=== PATIENT | male | born 1930 | race Caucasian/White ===

== ENCOUNTER 2016-09-07 13:27 | Outpatient (CLI) | payer MEDICARE, OTHER | END 2016-09-07 23:59 | DX: I50.9 Heart failure, unspecified (principal) ==

== ENCOUNTER 2016-10-13 08:00 | Outpatient (CLI) | payer MEDICARE, OTHER | END 2016-10-13 23:59 | DX: I50.9 Heart failure, unspecified (principal) ==

== ENCOUNTER 2016-11-22 11:12 | Outpatient (CLI) | payer MEDICARE, OTHER | END 2016-11-22 11:13 | DX: Z01.810 Encounter for preprocedural cardiovascular examination (principal) ==

== ENCOUNTER → 2017-01-12 | Outpatient (CLI) | payer MEDICARE, OTHER ==
[2017-01-12 12:55] LABS: BASOPHILS % (AUTO) 0.4 %; EOSINOPHILS # (AUTO) 0.1 10^3/uL (0.0-0.7); EOSINOPHILS % (AUTO) 3.2 %; HCT - HEMATOCRIT 37.4 % (42.0-52.0); HGB - HEMOGLOBIN 12.8 g/dL (14.0-18.0); LYMPHOCYTES # (AUTO) 0.5 10^3/uL (1.5-3.5); LYMPHOCYTES % (AUTO) 14.5 %; MEAN CORPUSCULAR HEMOGLOBIN 33.4 pg (27.0-31.0); MEAN CORPUSCULAR HGB CONC 34.2 g/dL (32.0-36.0); MEAN CORPUSCULAR VOLUME 97.7 fL (80.0-94.0); MEAN PLATELET VOLUME 8.3 fL (7.4-11.4); MONOCYTES # (AUTO) 0.4 10^3/uL (0.0-1.0); MONOCYTES % (AUTO) 11.8 %; NEUTROPHILS # (AUTO) 2.5 10^3/uL (1.5-6.6); NEUTROPHILS % (AUTO) 70.1 %; NUCLEATED RED BLOOD CELLS AUTO 0.2 /100WBC; RED BLOOD COUNT 3.83 10^6/uL (4.70-6.10); RED CELL DISTRIBUTION WIDTH 13.7 % (12.0-15.0); UNCORRECTED WHITE BLOOD COUNT 3.6 x10^3/uL; WHITE BLOOD COUNT 3.6 x10^3/uL (4.8-10.8)
[2017-01-12 13:19] LABS: ALBUMIN/GLOBULIN RATIO 1.3 (1.0-2.2); BUN - BLOOD UREA NITROGEN 24 mg/dL (6-20); CALCIUM 8.8 mg/dL (8.5-10.3); CARBON DIOXIDE - CO2 29 mmol/L (21-32); CHLORIDE 107 mmol/L (101-111); CHOLESTEROL 162 mg/dL; CREATININE 0.9 mg/dL (0.6-1.2); GFR - MDRD 80 (>89); GLUCOSE 105 mg/dL (70-100); HDL CHOLESTEROL 54 mg/dL; POTASSIUM 4.3 mmol/L (3.5-5.0); SODIUM 142 mmol/L (135-145); TOTAL PROTEIN 6.5 g/dL (6.7-8.2); TRIGLYCERIDES 38 mg/dL
[2017-01-12 13:37] LABS: LDL CHOLESTEROL,DIRECT 99 mg/dL
== END ==
LOC: LAB.WCP 08:00
PROVIDERS: ATTEND Family Medicine
DX: I50.9 Heart failure, unspecified (principal)
CPT/HCPCS: 36415; 80053; 80061; 83880; 85025

== ENCOUNTER 2017-02-06 08:00 | Outpatient (CLI) | payer MEDICARE, OTHER ==
[2017-02-06 19:36] LABS: BASOPHILS % (AUTO) 0.4 %; EOSINOPHILS # (AUTO) 0.1 10^3/uL (0.0-0.7); EOSINOPHILS % (AUTO) 1.6 %; HCT - HEMATOCRIT 42.5 % (42.0-52.0); HGB - HEMOGLOBIN 14.1 g/dL (14.0-18.0); LYMPHOCYTES # (AUTO) 0.6 10^3/uL (1.5-3.5); LYMPHOCYTES % (AUTO) 11.8 %; MEAN CORPUSCULAR HEMOGLOBIN 33.1 pg (27.0-31.0); MEAN CORPUSCULAR HGB CONC 33.1 g/dL (32.0-36.0); MEAN CORPUSCULAR VOLUME 100.1 fL (80.0-94.0); MEAN PLATELET VOLUME 8.8 fL (7.4-11.4); MONOCYTES # (AUTO) 0.5 10^3/uL (0.0-1.0); MONOCYTES % (AUTO) 10.7 %; NEUTROPHILS # (AUTO) 3.5 10^3/uL (1.5-6.6); NEUTROPHILS % (AUTO) 75.5 %; NUCLEATED RED BLOOD CELLS AUTO 0.5 /100WBC; RED BLOOD COUNT 4.25 10^6/uL (4.70-6.10); RED CELL DISTRIBUTION WIDTH 13.5 % (12.0-15.0); UNCORRECTED WHITE BLOOD COUNT 4.7 x10^3/uL; WHITE BLOOD COUNT 4.7 x10^3/uL (4.8-10.8)
[2017-02-06 20:00] LABS: ALBUMIN/GLOBULIN RATIO 1.3 (1.0-2.2); BILIRUBIN,TOTAL 1.5 mg/dL (0.2-1.0); CALCIUM 8.9 mg/dL (8.5-10.3); POTASSIUM 4.4 mmol/L (3.5-5.0); TOTAL PROTEIN 6.5 g/dL (6.7-8.2)
== END 2017-02-06 08:01 | disposition home or self-care (01) ==
LOC: LAB.WCP 08:00
PROVIDERS: ATTEND Family Medicine
DX: R10.9 Unspecified abdominal pain (principal)
CPT/HCPCS: 36415; 80053; 85025

== ENCOUNTER 2017-02-14 11:14 | Outpatient (CLI) | payer MEDICARE, OTHER ==
[2017-02-14] MEDS ORDERED: IOPAMIDOL-300 100 ML VIAL IVP ONE (13:29)
--- NOTE | 2017-02-14 14:15 | CT Report ---
CT OF THE ABDOMEN AND PELVIS WITH CONTRAST: 02/14/2017 CLINICAL INDICATION: Abdominal pain. TECHNIQUE: Axial CT images of the abdomen and pelvis were obtained with 100 mL of Isovue-300 intraven ously as well as oral contrast. COMPARISON: 04/16/2014. FINDINGS: Limited evaluation of the lung bases demonstrates left greater than right pleural effusion s and basilar infiltrates. ABDOMEN: The liver demonstrates multiple cysts and a small hemangioma in the right lobe. No suspiciou s hepatic lesion is seen. The spleen, pancreas and adrenal glands are unremarkable. The kidneys demon strate cortical cysts. Postoperative changes of cholecystectomy are noted. No bowel dilatation, free gas, or free fluid is present. No abdominal adenopathy is seen. The appendix is seen in the right low er quadrant, and is normal in caliber. PELVIS: Sigmoid diverticulosis is present, without CT evidence of diverticulitis. No pelvic adenopath y or free fluid is present. The osseous structures demonstrate degenerative changes. IMPRESSION: 1. NO EVIDENT ETIOLOGY FOR PATIENT'S ABDOMINAL PAIN. 2. LEFT GREATER THAN RIGHT PLEURAL EFFUSIONS AND ASSOCIATED BASILAR INFILTRATES. In accordance with CT protocol optimization, one or more of the following dose reduction techniques w ere utilized for this exam: automated exposure control, adjustment of mA and/or KV based on patient size, or use of iterative reconstructive technique. JOB #: [id number] EXT JOB #:[id number]
== END 2017-02-14 11:15 | disposition home or self-care (01) ==
LOC: DI 11:14
PROVIDERS: ATTEND Family Medicine
DX: R10.9 Unspecified abdominal pain (principal); R91.8 Other nonspecific abnormal finding of lung field; J90 Pleural effusion, not elsewhere classified
CPT/HCPCS: 36415; 74177; 83880; Q9967

== ENCOUNTER 2017-04-30 11:14 | Outpatient (CLI) | payer MEDICARE, OTHER | END 2017-04-30 11:15 | disposition home or self-care (01) | LOC: SC 11:14 | PROVIDERS: ATTEND Internal Medicine Pulmonary Disease | DX: G47.10 Hypersomnia, unspecified (principal); I50.9 Heart failure, unspecified | CPT/HCPCS: 99203; G0463; 99212 ==

== ENCOUNTER 2017-09-15 09:46 | Outpatient (CLI) | payer MEDICARE, OTHER ==
--- NOTE | 2017-09-15 17:31 | CT Report ---
EXAM: CT CHEST EXAM DATE: 09/15/2017 11:13 AM. CLINICAL HISTORY: PLEURAL EFFUSION, LEFT. COMPARISONS: 02/14/2017. TECHNIQUE: Routine helical CT imaging was performed through the chest. IV contrast: None. Reconstruct ions: Coronal and sagittal. In accordance with CT protocol optimization, one or more of the following dose reduction techniques w ere utilized for this exam: automated exposure control, adjustment of mA and/or KV based on patient s ize, or use of iterative reconstructive technique. FINDINGS: Lungs/Pleura: There is a moderate-sized left pleural effusion. The volume of the left effusion is not appreciable changed as compared to the previous examination. Dependent consolidation within the left lung base likely represents atelectasis. There is some stable hyperdensity within the consolidated l eft lung base which may represent calcification. There is no evidence of infiltrate within the right lung base. There is mild right interlobular septal thickening. There are some scattered peripheral ca lcification within the right base. No discrete noncalcified lung nodules are seen. There is no eviden ce of focal central airway abnormality. No pneumothorax. Mediastinum: There is mild cardiomegaly. There are coronary artery calcifications. There are no enlar ged axillary, supraclavicular, mediastinal, or hilar lymph nodes. Aortic contour is within normal loera its. 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 No acute bony abnormalities are seen. Visualized Abdomen: The visualized portions of the upper abdominal organs demonstrate no acute abnorm alities. Other: None. IMPRESSION: 1. There is chronic-appearing, moderate-sized left pleural effusion. 2. There is left base atelectasis. 3. Interval resolution of previously visualized right pleural effusion. There is mild subpleural reti culation and interlobular septal thickening within the right lung base. This could reflect mild edema and/or mild fibrosis. 4. There is cardiomegaly. There are coronary artery calcifications. 5. 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 [facility] Referring Provider Line: [phone] SITE ID: [id number]
== END 2017-09-15 09:47 | disposition home or self-care (01) ==
LOC: DI 09:46
PROVIDERS: ATTEND Family Medicine
DX: J90 Pleural effusion, not elsewhere classified (principal); J98.11 Atelectasis; I51.7 Cardiomegaly; I25.10 Atherosclerotic heart disease of native coronary artery without angina pectoris; M43.24 Fusion of spine, thoracic region
CPT/HCPCS: 71250

== ENCOUNTER 2017-09-26 08:50 | Outpatient (CLI) | payer MEDICARE, OTHER ==
[2017-09-26 13:31] LABS: CALCIUM 9.1 mg/dL (8.5-10.3); CREATININE 1.2 mg/dL (0.6-1.2)
== END 2017-09-26 08:51 | disposition home or self-care (01) ==
LOC: LAB.WCP 08:50
PROVIDERS: ATTEND Family Medicine
DX: I50.9 Heart failure, unspecified (principal)
CPT/HCPCS: 36415; 80048

== ENCOUNTER 2017-10-29 07:46 | Outpatient (CLI) | payer MEDICARE, OTHER ==
[2017-10-29 08:52] LABS: INR 1.1 (0.8-1.2); PT - PROTHROMBIN TIME 12.3 secs (9.9-12.6)
[2017-10-29 11:08] LABS: CC,BF RBC 542 /mm^3
[2017-10-29 11:09] LABS: BF COLOR YELLOW; BF SOURCE PLEURAL
[2017-10-29] MEDS ORDERED: BUFFERED LIDOCAINE 10 ML SYRINGE IU ONE (11:11)
--- NOTE | 2017-10-29 11:32 | XRAY Report ---
INSPIRATORY AND EXPIRATORY VIEWS OF THE CHEST: 10/29/2017 CLINICAL INDICATION: Followup left thoracentesis. FINDINGS: Frontal inspiratory and expiratory views of the chest demonstrate a small predominantly basilar left pneumothorax following ultrasound-guided thoracentesis. Trace residual pleural fluid is present. The right lung is clear. No right effusion or pneumothorax is seen. IMPRESSION: SMALL POSTPROCEDURE LEFT PNEUMOTHORAX, WITH TRACE RESIDUAL LEFT PLEURAL EFFUSION. FINDINGS DISCUSSED WITH THE PATIENT PRIOR TO HIS DEPARTURE FROM THE DEPARTMENT. TD: 10/29/2017 11:31
--- NOTE | 2017-10-29 11:34 | Ultrasound Report ---
ULTRASOUND-GUIDED LEFT THORACENTESIS: 10/29/2017 CLINICAL INDICATION: Left pleural effusion, history of asbestos exposure. TECHNIQUE/FINDINGS: Following obtaining informed consent, a suitable site on the patient's left posterior thorax was identified with ultrasound. The skin was prepped and draped in the usual sterile fashion. The skin and soft tissues were anesthetized with buffered lidocaine. A Tmpl-L-Mawjhjti catheter was inserted into the left pleural space and approximately 900 mL of fluid was removed without difficulty. The patient did experience a vasovagal reaction, which resolved with recumbent positioning. IMPRESSION: SUCCESSFUL ULTRASOUND-GUIDED LEFT THORACENTESIS. FLUID SUBMITTED TO THE LAB FOR FURTHER EVALUATION. TD: 10/29/2017 11:34
[2017-10-29 11:57] LABS: BASOPHILS %,BODY FLUID 0 %; MESOTHELIAL %, BF 0 %
== END 2017-10-29 07:47 | disposition home or self-care (01) ==
LOC: LAB 07:46
PROVIDERS: ATTEND Family Medicine
DX: J90 Pleural effusion, not elsewhere classified (principal); J95.811 Postprocedural pneumothorax; Z77.090 Contact with and (suspected) exposure to asbestos; I50.9 Heart failure, unspecified
CPT/HCPCS: 32555; 36415; 71046; 81599; 82945; 83615; 83986; 84157; 85610; 85730; 89051

== ENCOUNTER 2017-11-08 09:39 | Outpatient (CLI) | payer MEDICARE, OTHER ==
--- NOTE | 2017-11-08 12:08 | XRAY Report ---
TWO VIEW CHEST: 11/08/2017 CLINICAL INDICATION: Followup left pneumothorax and effusion. COMPARISON: 10/29/2017, 09/26/2017. FINDINGS: Frontal and lateral views of the chest demonstrate a normal cardiac silhouette. Left pneumothorax has decreased from postprocedure films of 10/29/2017. Left pleural effusion appears similar to 09/26/2017 films, with associated basilar airspace disease. IMPRESSION: REACCUMULATION OF LEFT PLEURAL FLUID. TINY RESIDUAL LEFT APICAL PNEUMOTHORAX. TD: 11/08/2017 12:07
== END 2017-11-08 09:40 | disposition home or self-care (01) ==
LOC: DI 09:39
PROVIDERS: ATTEND Family Medicine
DX: J93.9 Pneumothorax, unspecified (principal); J90 Pleural effusion, not elsewhere classified
CPT/HCPCS: 71046

== ENCOUNTER 2017-11-14 08:00 | Outpatient (CLI) | payer MEDICARE, OTHER ==
[2017-11-14 19:18] LABS: CALCIUM 8.5 mg/dL (8.5-10.3)
== END 2017-11-14 08:01 ==
LOC: LAB.WCP 08:00
PROVIDERS: ATTEND Family Medicine
DX: I10 Essential (primary) hypertension (principal)
CPT/HCPCS: 36415; 80048

== ENCOUNTER 2018-01-14 07:57 | Outpatient (CLI) | END 2018-01-14 07:58 | disposition home or self-care (01) ==

== ENCOUNTER 2018-02-08 07:08 | Outpatient (CLI) | payer MEDICARE, OTHER ==
[2018-02-08 14:13] LABS: BASOPHILS % (AUTO) 0.6 %; EOSINOPHILS % (AUTO) 3.3 %; LYMPHOCYTES % (AUTO) 16.4 %; MEAN CORPUSCULAR HEMOGLOBIN 33.5 pg (27.0-31.0); MEAN CORPUSCULAR VOLUME 98.3 fL (80.0-94.0); MEAN PLATELET VOLUME 7.4 fL (7.4-11.4); MONOCYTES % (AUTO) 13.5 %; NEUTROPHILS % (AUTO) 66.2 %; PLT - PLATELET COUNT 132 10^3/uL (130-450); RED CELL DISTRIBUTION WIDTH 13.1 % (12.0-15.0); WHITE BLOOD COUNT 3.4 x10^3/uL (4.8-10.8)
[2018-02-08 14:15] LABS: ABNORMAL LYMPHS % (MANUAL) 0 %; BAND NEUTROPHILS % (MANUAL) 0 %
[2018-02-08 14:20] LABS: HB2 TOTAL 13.7 g/dL; HEMOGLOBIN A1C 0.55 g/dL; HEMOGLOBIN A1C % 5.8 % (4.6-6.2)
[2018-02-08 14:28] LABS: ALBUMIN 3.5 g/dL (3.2-5.5); ALKALINE PHOSPHATASE 89 IU/L (42-121); ALT ALANINE AMINOTRANSFERASE 12 IU/L (10-60); AST ASPARTATE AMINOTRANSFERASE 17 IU/L (10-42); BILIRUBIN,TOTAL 1.1 mg/dL (0.2-1.0); BUN - BLOOD UREA NITROGEN 23 mg/dL (6-20); CALCIUM 8.6 mg/dL (8.5-10.3); CARBON DIOXIDE - CO2 28 mmol/L (21-32); CHLORIDE 104 mmol/L (101-111); CHOL/HDL RATIO 3.4 (<5.0); CHOLESTEROL 178 mg/dL; GFR - MDRD 71 (>89); GLUCOSE 105 mg/dL (70-100); HDL CHOLESTEROL 52 mg/dL; LDL CHOLESTEROL,CALCULATED 117 mg/dL; LDL/HDL RATIO 2.3 (<3.6); SODIUM 140 mmol/L (135-145); VLDL CHOLESTEROL 9 mg/dL
[2018-02-08 14:39] LABS: EOSINOPHILS # (MANUAL) 0.1 10^3/uL (0-0.7); LYMPHOCYTES # (MANUAL) 0.6 10^3/uL (1.5-3.5); LYMPHOCYTES % (MANUAL) 15 %; MONOCYTES # (MANUAL) 0.6 10^3/uL (0.0-1.0); NEUTROPHILS # (MANUAL) 2.1 10^3/uL (1.5-6.6); NEUTROPHILS % (MANUAL) 61 %
[2018-02-08 14:40] LABS: DIFFERENTIAL COMMENT MANUAL DIFFERENTIAL; PLATELET ESTIMATE, MANUAL NORMAL (130-450,000) (NORMAL); PLATELET MORPHOLOGY NORMAL APPEARANCE (NORMAL); RBC MORPHOLOGY (MULTIPLE) 1+ ANISOCYTOSIS (NORMAL)
== END 2018-02-08 07:09 | disposition home or self-care (01) ==
LOC: LAB.WCP 07:08
PROVIDERS: ATTEND Family Medicine
DX: D61.818 Other pancytopenia (principal); E11.51 Type 2 diabetes mellitus with diabetic peripheral angiopathy without gangrene; I25.10 Atherosclerotic heart disease of native coronary artery without angina pectoris; I10 Essential (primary) hypertension; E78.5 Hyperlipidemia, unspecified
CPT/HCPCS: 36415; 80053; 80061; 82043; 83036; 83721; 85025

== ENCOUNTER 2018-02-18 12:41 | Outpatient (CLI) | payer MEDICARE, OTHER ==
[2018-02-18 13:56] LABS: INR 1.1 (0.8-1.2); PT - PROTHROMBIN TIME 12.8 secs (9.9-12.6)
--- NOTE | 2018-02-18 15:35 | XRAY Report ---
Procedure Date: 02/18/2018 Accession Number: [id number] / [id number] Procedure: XR - Chest 2 View X-Ray CPT Code: 09865 FULL RESULT: EXAM: Chest 2 View X-Ray DATE: 02/18/2018 3:21 PM CLINICAL HISTORY: Post Thoracentesis CXR COMPARISON: 11/08/2017. TECHNIQUE: 2 views. FINDINGS: Interval decrease of the left pleural effusion status post thoracentesis. The cardiomediastinal silhouette is stable. There is no pneumothorax and there is no new consolidation. IMPRESSION: No pneumothorax. [facility]
--- NOTE | 2018-02-18 15:57 | Ultrasound Report ---
Procedure Date: 02/18/2018 Accession Number: [id number] / [id number] Procedure: US - Thoracentesis Puncture CPT Code: FULL RESULT: EXAM: Thoracentesis Puncture DATE: 02/18/2018 3:49 PM CLINICAL HISTORY: PLEURAL EFFUSION COMPARISON: None. TECHNIQUE/FINDINGS: Written informed consent was obtained from the patient. The patient was brought to the procedure room and placed on the bed in the seated upright position. Following preliminary ultrasound demonstrating adequate left-sided pleural effusion, the left lower posterior chest was sterilely prepped and draped in the usual fashion. Then following a lidocaine anesthesia to the skin surface the lidocaine needle was advanced to the pleural surface under ultrasound guidance and the pleural membrane was anesthetized. A skin mega was made. A valved thoracentesis needle was advanced into the pleural space under live ultrasound guidance and the needle was withdrawn leaving behind a valve catheter. A total of 1.1 L of hemorrhagic fluid was removed. Samples were submitted to cytology. An occlusive dressing was applied following removal of the catheter. The patient appeared to tolerate the procedure well. IMPRESSION: Thoracentesis. [facility]
[2018-02-18] MEDS ORDERED: BUFFERED LIDOCAINE 10 ML SYRINGE IU ONE (16:01)
[2018-02-18 16:13] LABS: CC,BF RBC 28064 /mm^3
[2018-02-18 16:14] LABS: BF COLOR RED; BF SOURCE PLEURAL
[2018-02-18 17:04] VITALS: BP 147/64
[2018-02-18 17:11] LABS: LYMPHOCYTES %,BODY FLUID 90; MACROPHAGES %,BODY FLUID 5 %; MESOTHELIAL %, BF 0 %; MONOCYTES %,BODY FLUID 2 %
== END 2018-02-18 12:42 | disposition home or self-care (01) ==
LOC: DI 12:41
PROVIDERS: ATTEND Internal Medicine Pulmonary Disease
DX: J90 Pleural effusion, not elsewhere classified (principal); Z01.812 Encounter for preprocedural laboratory examination
CPT/HCPCS: 32555; 36415; 71046; 85610; 89051

== ENCOUNTER 2018-04-02 07:42 | Outpatient (CLI) | payer MEDICARE, OTHER ==
[2018-04-02 09:38] LABS: INR 1.2 (0.8-1.2)
--- NOTE | 2018-04-02 12:08 | XRAY Report ---
Reason: Post-Thoracentesis Procedure Date: 04/02/2018 Accession Number: [id number] / [id number] Procedure: XR - XR 2V Insp/Exp Post Thorac CPT Code: 09718 FULL RESULT: EXAM: CHEST RADIOGRAPHY EXAM DATE: 04/02/2018 11:54 AM. CLINICAL HISTORY: Post-Thoracentesis. COMPARISON: Chest 02/18/2018. TECHNIQUE: PA inspiration and expiration views. FINDINGS: Lungs/Pleura: Again seen is a left pleural effusion. It is somewhat decreased following thoracentesis. Mediastinum: Stable borderline heart size. No evidence of pneumothorax. IMPRESSION: Left pleural effusion is somewhat decreased following thoracentesis. No evidence of pneumothorax. [facility]
[2018-04-02 12:41] LABS: BF COLOR RED; BF SOURCE PLEURAL; CC,BF RBC 37891 /mm^3
[2018-04-02 13:00] LABS: LYMPHOCYTES %,BODY FLUID 87; MACROPHAGES %,BODY FLUID 7 %; MONOCYTES %,BODY FLUID 1 %
[2018-04-02] MEDS ORDERED: BUFFERED LIDOCAINE 10 ML SYRINGE IU ONE (14:36)
--- NOTE | 2018-04-02 15:33 | Ultrasound Report ---
Reason: LEFT RECURRENT PLEURAL EFFUSION Procedure Date: 04/02/2018 Accession Number: [id number] / [id number] Procedure: US - Thoracentesis Puncture CPT Code: FULL RESULT: EXAM: ULTRASOUND GUIDANCE FOR PROCEDURE EXAM DATE: 04/02/2018 11:37 AM. CLINICAL HISTORY: LEFT RECURRENT PLEURAL EFFUSION. COMPARISON: Chest 02/18/2018. TECHNIQUE: Real-time and static images were obtained. FINDINGS: Benefits and risks of the procedure were discussed with the patient, who desired to proceed. A standard timeout was performed which identified the left chest as the correct site for thoracentesis, as well as the patient name and date of . The patient was prepped and draped in normal sterile fashion. 6 cc lidocaine 1% were used for anesthesia. A standard Yueh needle and catheter set were introduced into the left pleural space. 615 cc of serosanguineous fluid were drained. Standard culture sets were sent to the laboratory for analysis. There were no complications, and a chest x-ray 30 minutes after the procedure showed no pneumothorax. IMPRESSION: Successful left thoracentesis [facility]
== END 2018-04-02 07:43 | disposition home or self-care (01) ==
LOC: DI 07:42
PROVIDERS: ATTEND Family Medicine
DX: J90 Pleural effusion, not elsewhere classified (principal)
CPT/HCPCS: 32555; 36415; 71046; 85610; 89051

== ENCOUNTER 2018-06-12 13:45 | Outpatient (CLI) | payer MEDICARE, OTHER ==
[2018-06-12 19:02] LABS: BASOPHILS % (AUTO) 0.4 %; EOSINOPHILS # (AUTO) 0.1 10^3/uL (0.0-0.7); EOSINOPHILS % (AUTO) 1.9 %; HGB - HEMOGLOBIN 12.7 g/dL (14.0-18.0); LYMPHOCYTES # (AUTO) 0.3 10^3/uL (1.5-3.5); MEAN CORPUSCULAR HEMOGLOBIN 32.8 pg (27.0-31.0); MEAN CORPUSCULAR HGB CONC 33.1 g/dL (32.0-36.0); MEAN CORPUSCULAR VOLUME 99.4 fL (80.0-94.0); MEAN PLATELET VOLUME 7.9 fL (7.4-11.4); MONOCYTES # (AUTO) 0.5 10^3/uL (0.0-1.0); MONOCYTES % (AUTO) 14.6 %; NEUTROPHILS # (AUTO) 2.7 10^3/uL (1.5-6.6); NEUTROPHILS % (AUTO) 75.1 %; PLT - PLATELET COUNT 137 10^3/uL (130-450); RED BLOOD COUNT 3.87 10^6/uL (4.70-6.10); RED CELL DISTRIBUTION WIDTH 14.2 % (12.0-15.0); WHITE BLOOD COUNT 3.5 x10^3/uL (4.8-10.8)
[2018-06-12 19:15] LABS: ALBUMIN 3.6 g/dL (3.2-5.5); BILIRUBIN,TOTAL 1.1 mg/dL (0.2-1.0); CALCIUM 8.9 mg/dL (8.5-10.3); TOTAL PROTEIN 7.1 g/dL (6.7-8.2)
== END 2018-06-12 13:46 | disposition home or self-care (01) ==
LOC: LAB.WCP 13:45
PROVIDERS: ATTEND Family Medicine
DX: K62.5 Hemorrhage of anus and rectum (principal)
CPT/HCPCS: 36415; 80053; 85025

== ENCOUNTER 2018-08-05 07:04 | Day surgery (SDC) | payer MEDICARE, OTHER ==
[2018-08-05] MEDS ORDERED: LACTATED RINGERS 1,000 ML IV ONE (07:26)
[2018-08-05] MEDS ORDERED: fentaNYL 100 MCG/2 ML VIAL IVP ONE (08:00)
[2018-08-05] MEDS ORDERED: MIDAZOLAM 2 MG/2 ML VIAL IVP ONE (08:00)
[2018-08-05 08:48] VITALS: BP 98/51
== END 2018-08-05 07:05 | disposition home or self-care (01) ==
LOC: SDS 07:04
PROVIDERS: ATTEND Surgery
PROC: 0DBP8ZZ Excision of Rectum, Via Natural or Artificial Opening Endoscopic (ICD-10-PCS; principal; 2018-08-05 08:15)
DX: K62.5 Hemorrhage of anus and rectum (principal); K62.1 Rectal polyp; K57.30 Diverticulosis of large intestine without perforation or abscess without bleeding; K64.8 Other hemorrhoids; I50.9 Heart failure, unspecified; I11.0 Hypertensive heart disease with heart failure; E66.9 Obesity, unspecified; Z68.35 Body mass index [BMI] 35.0-35.9, adult
CPT/HCPCS: 45380; J7120

== ENCOUNTER 2018-09-03 11:01 | Emergency (ER) | payer MEDICARE, OTHER ==
[2018-09-03 11:58] LABS: BASOPHILS % (AUTO) 0.3 %; EOSINOPHILS % (AUTO) 0.5 %; HGB - HEMOGLOBIN 12.6 g/dL (14.0-18.0); LYMPHOCYTES # (AUTO) 0.2 10^3/uL (1.5-3.5); LYMPHOCYTES % (AUTO) 5.7 %; MEAN CORPUSCULAR HEMOGLOBIN 33.5 pg (27.0-31.0); MEAN CORPUSCULAR HGB CONC 34.3 g/dL (32.0-36.0); MEAN CORPUSCULAR VOLUME 97.7 fL (80.0-94.0); MEAN PLATELET VOLUME 8.1 fL (7.4-11.4); MONOCYTES # (AUTO) 0.5 10^3/uL (0.0-1.0); MONOCYTES % (AUTO) 14.2 %; NEUTROPHILS # (AUTO) 2.9 10^3/uL (1.5-6.6); NEUTROPHILS % (AUTO) 79.3 %; PLT - PLATELET COUNT 120 10^3/uL (130-450); RED BLOOD COUNT 3.75 10^6/uL (4.70-6.10); RED CELL DISTRIBUTION WIDTH 14.1 % (12.0-15.0); WHITE BLOOD COUNT 3.7 x10^3/uL (4.8-10.8)
[2018-09-03 12:12] LABS: ALBUMIN 3.3 g/dL (3.2-5.5); BILIRUBIN,TOTAL 1.8 mg/dL (0.2-1.0); CALCIUM 8.5 mg/dL (8.5-10.3); TOTAL PROTEIN 6.6 g/dL (6.7-8.2)
--- NOTE | 2018-09-03 12:33 | ED Physician Documentation ---
PD HPI DYSPNEA - Stated complaint Stated Complaint: SOA - Chief complaint Chief Complaint: Resp - History obtained from History obtained from: Patient, Family - History of Present Illness Timing - onset: Other (This is an 87-year-old gentleman with recurrent left pleural effusion of unclear etiology. He has had 4 thoracenteses in the past and has seen a cardiothoracic surgeon for evaluations for VATS pleurodesis, but that has not happened. He has been short of breath increasingly over the last week to 3 weeks but with profound fatigue and bilateral leg weakness over the last day and became very short of breath today on exertion. There is no associated chest pain or pedal edema. No fevers or cough.) Review of Systems Ten Systems: 10 systems reviewed and negative Constitutional: reports: Fatigue. denies: Fever, Chills Cardiac: denies: Chest pain / pressure, Palpitations Respiratory: reports: Dyspnea. denies: Cough PD PAST MEDICAL HISTORY - Past Medical History Cardiovascular: Hypertension, Coronary artery disease, Peripheral Vascular Disease Respiratory: Shortness of breath Endocrine/Autoimmune: None GI: GI bleed, Colon polyps : None HEENT: Chronic hearing loss, Other Psych: Depression Musculoskeletal: Osteoarthritis - Past Surgical History General: Cholecystectomy Ortho: Knee replacement Cardiovascular: Coronary stent HEENT: Tonsil/Adenoidectomy, Other - Present Medications Home Medications: Ambulatory Orders Medication Instructions Recorded Confirmed Aspirin [Aspir 81] 81 mg PO DAILY 02/23/14 09/03/18 Carvedilol [Coreg] 25 mg PO BID 02/23/14 09/03/18 Hydrocodone/Acetaminophen 1 each PO DAILY PRN 02/23/14 09/03/18 [Hydrocodon-Acetaminoph 2.5-325] Multivitamin [Multivitamins] 1 each PO DAILY 02/23/14 04/01/14 RX: Furosemide 80 mg PO DAILY 02/23/14 09/03/18 RX: Lisinopril 20 mg PO BID 02/23/14 09/03/18 buPROPion [Wellbutrin Sr] 150 mg PO DAILY 02/23/14 04/01/14 cloNIDine [Catapres] 0.1 mg PO DAILY 02/23/14 04/01/14 Isosorbide Mononitrate ER [Imdur] 1 tab PO DAILY 09/03/18 09/03/18 Nitroglycerin [Nitrostat] 1 tab SL Q5M PRN 09/03/18 09/03/18 Potassium Chloride [K-Dur] 1 tab PO DAILY 09/03/18 09/03/18 Simvastatin [Zocor] 1 tab PO DAILY 09/03/18 09/03/18 - Allergies Allergies/Adverse Reactions: Allergies Allergy/AdvReac Type Severity Reaction Status Date / Time adhesive Allergy Rash Verified 09/03/18 12:59 atorvastatin calcium * Allergy Unknown Verified 09/03/18 12:59 [From Lipitor] propoxyphene HCl * Allergy Unknown Verified 09/03/18 12:59 [From Darvon] sulfamethoxazole Allergy Unknown Verified 09/03/18 12:59 [From Bactrim] trimethoprim [From Bactrim] Allergy Unknown Verified 09/03/18 12:59 cherries Allergy Nausea Uncoded 09/03/18 12:59 - Social History Does the pt smoke?: No Smoking Status: Never smoker PD ED PE NORMAL - Vitals Vital signs reviewed: Yes - General General: Alert and oriented X 3, No acute distress - HEENT HEENT: PERRL, EOMI - Neck Neck: Supple, no meningeal sign, No bony TTP - Cardiac Cardiac: RRR, No murmur - Respiratory Respiratory: No respiratory distress, Other (Absent breath sounds at the left base) - Abdomen Abdomen: Soft, Non tender - Back Back: No CVA TTP, No spinal TTP - Derm Derm: Normal color, Warm and dry, No rash - Extremities Extremities: No edema, No calf tenderness / cord - Neuro Neuro: Alert and oriented X 3, Normal speech Results - Vitals Vitals: Vital Signs - 24 hr 09/03/18 09/03/18 09/03/18 11:04 11:06 13:07 Temperature 36.7 C Heart Rate 74 63 Respiratory 20 32 H Rate Blood Pressure 160/70 H 127/60 O2 Saturation 92 93 91 L 09/03/18 09/03/18 15:03 17:00 Temperature 36.7 C Heart Rate 66 67 Respiratory 20 20 Rate Blood Pressure 150/71 H 134/67 H O2 Saturation 98 100 Oxygen O2 Source Room air Oxygen Flow Rate 2 - EKG (time done) 1128 Rate: Rate (enter#) (70) Rhythm: NSR (With some arrhythmia) [place]: Normal Intervals: Prolonged WI (239msec), LBBB Compare to prior EKG: Old EKG unavailable Computer interpretation: Agree with computer - Labs Labs: Microbiology 09/03/18 15:00 Body Fluid Culture - Preliminary Thoracentesis Laboratory Tests 09/03/18 09/03/18 09/03/18 11:54 11:54 11:54 WBC 3.7 L RBC 3.75 L Hgb 12.6 L Hct 36.7 L MCV 97.7 H MCH 33.5 H MCHC 34.3 RDW 14.1 Plt Count 120 L MPV 8.1 Neut # (Auto) 2.9 Lymph # (Auto) 0.2 L [place] # (Auto) 0.5 Eos # (Auto) 0.0 Baso # (Auto) 0.0 Absolute Nucleated RBC 0.00 Nucleated RBC % 0.0 PT INR Sodium 139 Potassium 4.5 Chloride 101 Carbon Dioxide 30 Anion Gap 8.0 BUN 25 H Creatinine 1.0 Estimated GFR (MDRD) 71 L Glucose 116 H Calcium 8.5 Total Bilirubin 1.8 H AST 21 ALT 12 Alkaline Phosphatase 97 Troponin I < 0.04 B-Natriuretic Peptide Total Protein 6.6 L Albumin 3.3 Globulin 3.3 Albumin/Globulin Ratio 1.0 Lipase 22 Fluid Source Fluid Color Fluid Clarity Fluid WBC Fluid RBC Fluid Neutrophils % Fluid Lymphocytes % Fluid Monocytes % Fld Mesothelial Cell % 09/03/18 09/03/18 09/03/18 12:24 12:24 15:00 WBC RBC Hgb Hct MCV MCH MCHC RDW Plt Count MPV Neut # (Auto) Lymph # (Auto) [place] # (Auto) Eos # (Auto) Baso # (Auto) Absolute Nucleated RBC Nucleated RBC % PT 14.3 H INR 1.3 H Sodium Potassium Chloride Carbon Dioxide Anion Gap BUN Creatinine Estimated GFR (MDRD) Glucose Calcium Total Bilirubin AST ALT Alkaline Phosphatase Troponin I B-Natriuretic Peptide 1278 H Total Protein Albumin Globulin Albumin/Globulin Ratio Lipase Fluid Source PLEURAL Fluid Color XANTHOCHROMIC Fluid Clarity CLOUDY Fluid WBC 423 Fluid RBC [address] Fluid Neutrophils % 2.0 Fluid Lymphocytes % 92.0 Fluid Monocytes % 6.0 Fld Mesothelial Cell % 0 PD MEDICAL DECISION MAKING - ED course ED course: 87-year-old gentleman with recurrent left pleural effusion that is symptomatic. There is no clear cause but he does have some element of heart failure although he does not have pulmonary edema. The radiologist graciously did a thoracentesis and post procedurally the x-ray shows no complication or pneumothorax and the patient felt symptomatically better. Departure - Departure Disposition: 01 Home, Self Care Clinical Impression: Congestive heart failure, Pleural effusion Condition: Good Record reviewed to determine appropriate education?: Yes Comments: As in the past there is no clear reason for the pleural effusion. Return for new or worsening symptoms. Follow-up with primary care physician for cytology results on the pleural effusion fluid and it is reasonable to consult with the cardiothoracic surgeon in [place] again. Discharge Date/Time: 09/03/18 17:02
--- NOTE | 2018-09-03 12:36 | XRAY Report ---
Reason: SOA Procedure Date: 09/03/2018 Accession Number: [id number] / [id number] Procedure: XR - Chest 1 View X-Ray CPT Code: 93319 FULL RESULT: EXAM: CHEST RADIOGRAPHY EXAM DATE: 09/03/2018 12:09 PM. CLINICAL HISTORY: Shortness of breath. COMPARISON: INSP/EXP POST THORA 2V CXR 04/02/2018 11:48 AM. TECHNIQUE: 1 view. FINDINGS: Lungs/Pleura: There is a moderate left pleural effusion. No right pleural effusion or pneumothorax. There are mild bilateral basilar patchy pulmonary opacities, left greater than right. The bilateral lung apices are partially obscured by overlap with the mandible. Mediastinum: There is stable borderline enlargement of the cardiac silhouette. Other: No acute osseous abnormality. IMPRESSION: 1. Moderate left pleural effusion, increased in size compared to 04/02/2018. 2. Increased patchy bilateral basilar atelectasis or infiltrate, left greater than right. [facility]
[2018-09-03 12:37] LABS: INR 1.3 (0.8-1.2); PT - PROTHROMBIN TIME 14.3 secs (9.9-12.6)
[2018-09-03] MEDS ORDERED: BUFFERED LIDOCAINE 10 ML SYRINGE ONE (14:57)
--- NOTE | 2018-09-03 16:45 | XRAY Report ---
Reason: post thoracentesis Procedure Date: 09/03/2018 Accession Number: [id number] / [id number] Procedure: XR - Chest 1 View X-Ray CPT Code: 89092 FULL RESULT: EXAM: CHEST RADIOGRAPHY EXAM DATE: 09/03/2018 04:33 PM. CLINICAL HISTORY: Post left thoracentesis. COMPARISON: None. TECHNIQUE: 1 view in expiration. FINDINGS IMPRESSION: No pneumothorax status post thoracentesis. Residual small left basilar airspace disease and pleural fluid is present. [facility]
[2018-09-03 16:58] LABS: CC,BF RBC 20843 /mm^3
[2018-09-03] MEDS ORDERED: BUFFERED LIDOCAINE 10 ML SYRINGE SUBQ STA (17:00)
[2018-09-03 17:02] VITALS: BP 134/67
[2018-09-03 17:04] LABS: BF SOURCE PLEURAL
[2018-09-03 17:06] LABS: BF COLOR XANTHOCHROMIC
--- NOTE | 2018-09-03 17:14 | Ultrasound Report ---
Reason: recurrent L pleural effusion with dyspnea Procedure Date: 09/03/2018 Accession Number: [id number] / [id number] Procedure: US - Thoracentesis Puncture CPT Code: FULL RESULT: EXAM: ULTRASOUND-GUIDED THORACENTESIS EXAM DATE: 09/03/2018 03:45 PM. CLINICAL HISTORY: Recurrent left pleural effusion with dyspnea. COMPARISON: Earlier today, 02/18/2018 TECHNIQUE: Risks, benefits and alternatives to the procedure were discussed with the patient. All questions answered. Written and verbal consent obtained. Patient was placed in the sitting position and the skin overlying the left effusion marked with sonographic guidance. The skin was sterilely prepped and draped, and 1% buffered lidocaine was used for local anesthesia. An 18-gauge TiVo centesis catheter was advanced into the pleural space and fluid aspirated. Upon completion, the catheter was removed. FINDINGS: A total of 500 mL of bloody fluid was removed without immediate complication. Patient tolerated procedure well. Post procedure chest x-ray shows no evidence of a pneumothorax. IMPRESSION: Ultrasound-guided left thoracentesis without immediate complications. [facility]
[2018-09-03 18:09] LABS: MESOTHELIAL %, BF 0 %
== END 2018-09-03 17:02 | disposition home or self-care (01) ==
LOC: ED 11:01
DX: I11.0 Hypertensive heart disease with heart failure (principal); I50.9 Heart failure, unspecified; J91.8 Pleural effusion in other conditions classified elsewhere; I25.10 Atherosclerotic heart disease of native coronary artery without angina pectoris; I73.9 Peripheral vascular disease, unspecified; Z95.5 Presence of coronary angioplasty implant and graft; Z79.82 Long term (current) use of aspirin; I44.0 Atrioventricular block, first degree; I44.7 Left bundle-branch block, unspecified
CPT/HCPCS: 32555; 36415; 71045; 80053; 83690; 83880; 84484; 85025; 85610; 87070; 87205; 89051; 93005; 99284

== ENCOUNTER 2018-11-03 09:23 | Outpatient (CLI) | payer MEDICARE, OTHER | END 2018-11-03 09:24 | disposition critical access hospital (66) | LOC: EMS 09:23 | PROVIDERS: ATTEND Surgery | DX: R06.02 Shortness of breath (principal); T50.1X6A Underdosing of loop [high-ceiling] diuretics, initial encounter; Z91.128 Patient's intentional underdosing of medication regimen for other reason; Y92.009 Unspecified place in unspecified non-institutional (private) residence as the place of occurrence of the external cause | CPT/HCPCS: A0425; A0427 ==

== ENCOUNTER 2018-11-03 09:44 | Inpatient (IN) | payer MEDICARE, OTHER ==
[2018-11-03] MEDS ORDERED: IPRATROPIUM/ALBUTEROL 3 ML NEB INH STA (09:51)
--- NOTE | 2018-11-03 10:14 | ED Physician Documentation ---
PD HPI DYSPNEA - Stated complaint Stated Complaint: SOA - History obtained from History obtained from: Patient, EMS - History of Present Illness Timing - onset: How many days ago (3) Timing - onset during: Rest Timing - duration: Days (3) Timing - details: Gradual onset, Still present Inciting event(s): Other (has had left plural effusion drainged) Improved by: O2, BiPAP / CPAP Worsened by: Exertion, Laying flat Associated symptoms: Cough, Chest pain / discomfort, Anxiety Similar symptoms before: Diagnosis (pleural effusion) Recently seen: Surgery - Additional information Additional information: 87-year-old male with a chronic left pleural effusion of uncertain etiology has developed increased shortness of breath over the last 3 days. He did have pleural fluid drained yesterday about 600 mL's out of a tube that he has in his left chest wall. He had this tube placed in [place] 1 week ago. Review of Systems Constitutional: denies: Fever Eyes: denies: Decreased vision Ears: denies: Ear pain Nose: denies: Congestion Throat: denies: Sore throat Cardiac: reports: Chest pain / pressure. denies: Palpitations, Pedal edema, Calf pain Respiratory: reports: Dyspnea, Cough GI: denies: Abdominal Pain, Nausea, Vomiting : reports: Dysuria, Frequency PD PAST MEDICAL HISTORY - Past Medical History Cardiovascular: Hypertension, Coronary artery disease, Peripheral Vascular Disease Respiratory: Shortness of breath Endocrine/Autoimmune: None GI: GI bleed, Colon polyps : None HEENT: Chronic hearing loss, Other Psych: Depression Musculoskeletal: Osteoarthritis - Past Surgical History General: Cholecystectomy Ortho: Knee replacement Cardiovascular: Coronary stent HEENT: Tonsil/Adenoidectomy, Other - Present Medications Home Medications: Ambulatory Orders Medication Instructions Recorded Confirmed Aspirin [Aspir 81] 81 mg PO DAILY 02/23/14 11/03/18 Carvedilol [Coreg] 25 mg PO BID 02/23/14 11/03/18 Furosemide 240 mg PO DAILY 02/23/14 11/03/18 Lisinopril 40 mg PO DAILY 02/23/14 11/03/18 Multivitamin [Multivitamins] 1 each PO DAILY 02/23/14 11/03/18 Chlorhexidine Gluconate 15 ml MM DAILY 11/03/18 11/03/18 Hydrocodone/Acetaminophen 0.5 tab PO DAILY PRN 11/03/18 11/03/18 [Hydrocodone-Acetamin 5-325 mg] Potassium Chloride 10 meq PO BID 11/03/18 11/03/18 Trazodone HCl 50 mg PO QPM 11/03/18 11/03/18 - Allergies Allergies/Adverse Reactions: Allergies Allergy/AdvReac Type Severity Reaction Status Date / Time adhesive Allergy Rash Verified 11/03/18 10:18 atorvastatin calcium * Allergy Unknown Verified 11/03/18 10:18 [From Lipitor] bupropion Allergy Unknown Verified 11/03/18 10:18 hydralazine Allergy Unknown Verified 11/03/18 10:18 propoxyphene HCl * Allergy Unknown Verified 11/03/18 10:18 [From Darvon] spironolactone Allergy Unknown Verified 11/03/18 10:18 [From Aldactone] sulfamethoxazole Allergy Unknown Verified 11/03/18 10:18 [From Bactrim] tamsulosin [From Flomax] Allergy Unknown Verified 11/03/18 10:18 trimethoprim [From Bactrim] Allergy Unknown Verified 11/03/18 10:18 - Social History Does the pt smoke?: No Smoking Status: Never smoker PD ED PE NORMAL - Vitals Vital signs reviewed: Yes (tachy and tachypneic) - General General: Alert and oriented X 3, Well developed/nourished, Other (in respiratory distress with shallow rapid breathing ) - HEENT HEENT: Atraumatic, PERRL, EOMI - Neck Neck: Supple, no meningeal sign - Cardiac Cardiac: No murmur, Other (tachy to 110) - Respiratory Respiratory: Other (respiratory distress with rapid shallow breathing. There is diminished breath sounds bilaterally worse on the left and there are scattered wheezes. ) - Abdomen Abdomen: Soft, Non tender - Back Back: No CVA TTP, No spinal TTP - Derm Derm: Normal color, Warm and dry, No rash - Extremities Extremities: No deformity, No edema - Neuro Neuro: Alert and oriented X 3, No motor deficit, No sensory deficit, Normal speech Eye Opening: Spontaneous Motor: Obeys Commands Verbal: Oriented GCS Score: 15 - Psych Psych: Normal mood, Normal affect Results - Vitals Vitals: Vital Signs - 24 hr 11/03/18 11/03/18 11/03/18 10:06 10:12 10:30 Temperature 36.4 C L Heart Rate 101 H 98 104 H Respiratory 42 H 34 H Rate Blood Pressure 174/99 H O2 Saturation 98 11/03/18 11/03/18 11/03/18 11:09 11:30 11:59 Temperature 36.7 C Heart Rate 100 88 87 Respiratory 30 H 28 H 35 H Rate Blood Pressure 164/87 H 157/72 H 157/72 H O2 Saturation 100 96 95 11/03/18 11/03/18 11/03/18 12:00 12:30 12:33 Temperature Heart Rate 95 81 78 Respiratory 29 H 28 H Rate Blood Pressure 149/75 H 143/68 H O2 Saturation 96 96 Oxygen O2 Source BIPAP Oxygen Flow Rate 2 - EKG (time done) 0952 Rate: Rate (enter#) (97) Rhythm: NSR Intervals: LBBB Computer interpretation: Agree with computer - Labs Labs: Laboratory Tests 11/03/18 11/03/18 11/03/18 10:29 10:29 10:29 WBC 4.5 L RBC 3.97 L Hgb 13.0 L Hct 39.9 L MCV 100.6 H MCH 32.8 H MCHC 32.6 RDW 14.1 Plt Count 126 L MPV 7.9 Neut # (Auto) 3.7 Lymph # (Auto) 0.3 L Kingfisher # (Auto) 0.5 Eos # (Auto) 0.0 Baso # (Auto) 0.0 Absolute Nucleated RBC 0.00 Nucleated RBC % 0.1 Bld Gas Analysis Time Sample Site ABG pH ABG pCO2 ABG pO2 ABG HCO3 ABG Total CO2 ABG O2 Saturation ABG Oximetry Spot Check ABG Base Excess Jez Test O2 Delivery Device Vent Mode FiO2 Pressure Support Vent EPAP IPAP Sodium 142 Potassium 5.2 H Chloride 99 L Carbon Dioxide 34 H Anion Gap 9.0 BUN 26 H Creatinine 0.8 Estimated GFR (MDRD) 92 Glucose 149 H Lactic Acid Calcium 9.1 Total Bilirubin 1.7 H AST 16 ALT < 10 L Alkaline Phosphatase 91 Troponin I 0.04 B-Natriuretic Peptide Total Protein 7.7 Albumin 3.7 Globulin 4.0 Albumin/Globulin Ratio 0.9 L Lipase 17 L Urine Color Urine Clarity Urine pH Ur Specific Dilley Urine Protein Urine Glucose (UA) Urine Ketones Urine Occult Blood Urine Nitrite Urine Bilirubin Urine Urobilinogen Ur Leukocyte Esterase Urine RBC Urine WBC Ur Squamous Epith Cells Amorphous Sediment Urine Bacteria Urine Casts Urine Mucus Ur Microscopic Review Urine Culture Comments 11/03/18 11/03/18 11/03/18 10:29 10:29 11:20 WBC RBC Hgb Hct MCV MCH MCHC RDW Plt Count MPV Neut # (Auto) Lymph # (Auto) Kingfisher # (Auto) Eos # (Auto) Baso # (Auto) Absolute Nucleated RBC Nucleated RBC % Bld Gas Analysis Time 11:20 Sample Site RIGHT RADIAL ABG pH 7.22 L ABG pCO2 90 H* ABG pO2 328 H* ABG HCO3 35.7 H ABG Total CO2 38.5 H ABG O2 Saturation 100 H ABG Oximetry Spot Check 100 ABG Base Excess 4.8 H Jez Test POSITIVE O2 Delivery Device BiPAP Vent Mode SYNCHRONOUS/TIMES FiO2 100.00 Pressure Support Vent 7 EPAP 5 IPAP 12 Sodium Potassium Chloride Carbon Dioxide Anion Gap BUN Creatinine Estimated GFR (MDRD) Glucose Lactic Acid 1.1 Calcium Total Bilirubin AST ALT Alkaline Phosphatase Troponin I B-Natriuretic Peptide 2363 H Total Protein Albumin Globulin Albumin/Globulin Ratio Lipase Urine Color Urine Clarity Urine pH Ur Specific Dilley Urine Protein Urine Glucose (UA) Urine Ketones Urine Occult Blood Urine Nitrite Urine Bilirubin Urine Urobilinogen Ur Leukocyte Esterase Urine RBC Urine WBC Ur Squamous Epith Cells Amorphous Sediment Urine Bacteria Urine Casts Urine Mucus Ur Microscopic Review Urine Culture Comments 11/03/18 11:55 WBC RBC Hgb Hct MCV MCH MCHC RDW Plt Count MPV Neut # (Auto) Lymph # (Auto) Kingfisher # (Auto) Eos # (Auto) Baso # (Auto) Absolute Nucleated RBC Nucleated RBC % Bld Gas Analysis Time Sample Site ABG pH ABG pCO2 ABG pO2 ABG HCO3 ABG Total CO2 ABG O2 Saturation ABG Oximetry Spot Check ABG Base Excess Jez Test O2 Delivery Device Vent Mode FiO2 Pressure Support Vent EPAP IPAP Sodium Potassium Chloride Carbon Dioxide Anion Gap BUN Creatinine Estimated GFR (MDRD) Glucose Lactic Acid Calcium Total Bilirubin AST ALT Alkaline Phosphatase Troponin I B-Natriuretic Peptide Total Protein Albumin Globulin Albumin/Globulin Ratio Lipase Urine Color YELLOW Urine Clarity HAZY Urine pH 5.0 Ur Specific Dilley 1.020 Urine Protein 100 H Urine Glucose (UA) NEGATIVE Urine Ketones NEGATIVE Urine Occult Blood LARGE H Urine Nitrite NEGATIVE Urine Bilirubin NEGATIVE Urine Urobilinogen 1 (NORMAL) Ur Leukocyte Esterase NEGATIVE Urine RBC TNTC H Urine WBC 0-3 Ur Squamous Epith Cells MOD Squamous H Amorphous Sediment Marked Urine Bacteria Many H Urine Casts >50 Hyaline Casts Urine Mucus Moderate Strands Ur Microscopic Review INDICATED Urine Culture Comments NOT INDICATED - Rads (name of study) chest Radiology: Prelim report reviewed (Impression: 1. Increased bibasilar opacities suggesting small to moderate effusions and atelectasis and or consolidation. Probable mild interstitial edema.), EMP read indepedently, See rad report Procedures - IVC sono (time) 1120 Bedside IVC sono: IVC measures (cm) (2.64), High CVP, Fluid overload PD MEDICAL DECISION MAKING - ED course Complexity details: reviewed old records, reviewed results, re-evaluated patient, considered differential, d/w patient, d/w family ED course: 87-year-old male with a history of a left pleural effusion that has a drain in place has developed increased shortness of breath over the past 3 days and today he is in in extremis. He is brought to the emergency department with a nonrebreather mask on he does have some improvement with use of a breathing treatment but he has poor respiration and is failing. Initially chest x-ray is obtained which appears to show a new infiltrate in the right base and increased fluid in the left. The patient's BNP is markedly elevated his IVC is measured and is plethoric at 2.6 cm. At that point he is administered IV lasix. He has some further improvement and admission for further treatment is indicated. Dr. Willams graciously agrees to care for the patient in the hospital. Departure - Departure Disposition: [facility] DC/Xfer Clinical Impression: Congestive heart failure Qualifiers: Heart failure type: unspecified Heart failure chronicity: acute on chronic Qualified Code(s): I50.9 - Heart failure, unspecified Condition: Stable Discharge Date/Time: 11/03/18 13:24
--- NOTE | 2018-11-03 10:16 | XRAY Report ---
Reason: chest pain Procedure Date: 11/03/2018 Accession Number: [id number] / [id number] Procedure: XR - Chest 1 View X-Ray CPT Code: 22556 FULL RESULT: EXAM: CHEST RADIOGRAPHY EXAM DATE: 11/03/2018 10:05 AM. CLINICAL HISTORY: Chest pain. COMPARISON: CHEST 1 VIEW 09/03/2018 4:21 PM. TECHNIQUE: 1 view. FINDINGS: Lungs/Pleura: Increased bibasal opacities suggesting small to moderate effusions and atelectasis and/or consolidation. Mild bilateral interstitial opacity, slightly increased from prior. No detectable pneumothorax. Mediastinum: No megaly. Central pulmonary vascular congestion. Other: None. IMPRESSION: 1. Increased bibasal opacities suggesting small to moderate effusions and atelectasis and/or consolidation. Probable mild interstitial edema. RADIA
[2018-11-03 10:44] LABS: BASOPHILS % (AUTO) 0.1 %; EOSINOPHILS % (AUTO) 0.3 %; LYMPHOCYTES # (AUTO) 0.3 10^3/uL (1.5-3.5); LYMPHOCYTES % (AUTO) 5.6 %; MEAN CORPUSCULAR HEMOGLOBIN 32.8 pg (27.0-31.0); MEAN CORPUSCULAR HGB CONC 32.6 g/dL (32.0-36.0); MEAN CORPUSCULAR VOLUME 100.6 fL (80.0-94.0); MEAN PLATELET VOLUME 7.9 fL (7.4-11.4); MONOCYTES # (AUTO) 0.5 10^3/uL (0.0-1.0); MONOCYTES % (AUTO) 11.9 %; NEUTROPHILS # (AUTO) 3.7 10^3/uL (1.5-6.6); NEUTROPHILS % (AUTO) 82.1 %; PLT - PLATELET COUNT 126 10^3/uL (130-450); RED BLOOD COUNT 3.97 10^6/uL (4.70-6.10); RED CELL DISTRIBUTION WIDTH 14.1 % (12.0-15.0); WHITE BLOOD COUNT 4.5 x10^3/uL (4.8-10.8)
[2018-11-03 10:55] LABS: ALBUMIN 3.7 g/dL (3.2-5.5); ALBUMIN/GLOBULIN RATIO 0.9 (1.0-2.2); ALKALINE PHOSPHATASE 91 IU/L (42-121); ALT ALANINE AMINOTRANSFERASE < 10 IU/L (10-60); AST ASPARTATE AMINOTRANSFERASE 16 IU/L (10-42); BILIRUBIN,TOTAL 1.7 mg/dL (0.2-1.0); BUN - BLOOD UREA NITROGEN 26 mg/dL (6-20); CALCIUM 9.1 mg/dL (8.5-10.3); CARBON DIOXIDE - CO2 34 mmol/L (21-32); CHLORIDE 99 mmol/L (101-111); CREATININE 0.8 mg/dL (0.6-1.2); GFR - MDRD 92 (>89); GLUCOSE 149 mg/dL (70-100); LIPASE 17 U/L (22-51); SODIUM 142 mmol/L (135-145); TOTAL PROTEIN 7.7 g/dL (6.7-8.2)
[2018-11-03] MEDS ORDERED: FUROSEMIDE 40 MG/4 ML VIAL IVP STA (11:19)
[2018-11-03 11:58] LABS: BILIRUBIN,URINE NEGATIVE (NEGATIVE); GLUCOSE, URINE (UA) NEGATIVE (NEGATIVE); KETONES,URINE (UA) NEGATIVE (NEGATIVE); LEUKOCYTE ESTERASE, URINE NEGATIVE (NEGATIVE); NITRITE,URINE NEGATIVE (NEGATIVE); OCCULT BLOOD,URINE LARGE (NEGATIVE); PROTEIN,URINE 100 mg/dL (NEGATIVE); UROBILINOGEN,URINE 1 (NORMAL) E.U./dL (NORMAL)
[2018-11-03 11:59] LABS: CLARITY,URINE HAZY (CLEAR)
[2018-11-03 11:59] LABS: ABG HCO3 35.7 mmol/L (22.0-26.0); ABG PH 7.22 (7.35-7.45)
[2018-11-03 12:00] LABS: ABG BASE EXCESS 4.8 mmol/L (-2.0-3.0); ABG OXYGEN SATURATION 100 % (94-98); ABG TCO2 38.5 MMOL/L (21.0-29.0); ALLEN TEST POSITIVE
[2018-11-03 12:02] LABS: ABG PCO2 90 mmHg (34-45)
[2018-11-03 12:03] LABS: ABG PO2 328 mmHg (80-100)
[2018-11-03 12:08] LABS: AMORPHOUS SEDIMENT,UR Marked /LPF; BACTERIA,URINE Many /HPF (None Seen); MUCUS,URINE Moderate Strands; RBC,URINE TNTC /HPF (0-5); SQUAMOUS EPITHELIAL CELL,UR MOD Squamous (<= Few)
[2018-11-03] MEDS ORDERED: PROCHLORPERAZINE 10 MG/2 ML VIAL IVP PRN (12:42)
[2018-11-03] MEDS ORDERED: MORPHINE 2 MG/ML SYRINGE IVP PRN (12:42)
[2018-11-03 13:05] LABS: ABG BASE EXCESS 6.5 mmol/L (-2.0-3.0); ABG HCO3 36.2 mmol/L (22.0-26.0); ABG OXYGEN SATURATION 96 % (94-98); ABG PH 7.27 (7.35-7.45); ABG PO2 88 mmHg (80-100); ABG TCO2 38.7 MMOL/L (21.0-29.0); ALLEN TEST POSITIVE
[2018-11-03 13:30] LABS: ABG PCO2 80 mmHg (34-45)
[2018-11-03 14:42] LABS: ABG PCO2 51 mmHg (34-45)
[2018-11-03 14:43] LABS: ABG HCO3 39.8 mmol/L (22.0-26.0); ABG OXYGEN SATURATION 99 % (94-98); ALLEN TEST POSITIVE
[2018-11-03 14:46] LABS: ABG PO2 155 mmHg (80-100)
[2018-11-03 16:15] LABS: VBG BASE EXCESS 9.9 mmol/L (-2 - +2); VBG PCO2 73.3 mmHg (41-51); VBG PH 7.338 (7.31-7.41); VBG PO2 25.2 mmHg (25-47); VBG TOTAL CO2 40.7 mmol/L (24-29)
[2018-11-03 16:53] LABS: FOLATE 10.36 ng/mL (5.90 - >24.8)
--- NOTE | 2018-11-03 18:26 | ADVANCE CARE PLANNING NOTE ---
Advance Care Planning - Date/Time Date: 11/03/18 Time: 16:00 - Purpose of encounter Text: To establish patient's Code wishes and wishes for ventilator use if needed - Parties in attendance Parties in attendance: I spoke to the patient at bedside. Also in the room were his , 2 daughters, a son-in-law and 2 grand-children. The patient gave permission for all to be present. - Decisional capacity Decisional capacity of: He verbalizes good memory of his past medical conditions and has full capacity to describe his wishes. - Subjective/Patient's story Subjective/Patient's story: Patient has coronary disease, hypertension, CHF and a recurrent leural effusion. He is somewhat active at home. He has had recent frequent visits to his form grader operator and thoracic surgeon for thoracenteses and placement of a chest tube 1-1/2 weeks ago. He states that he is compliant with his medications. He got very short of breath starting 2 days ago, and today he could not put on his clothes due to severe dyspnea and orthopnea and the called an ambulance. - Objective/Medical story Objective/Medical Story: The patient has a history of CHF from systolic heart failure but has not been to his chicken stuffer in 1 year. There has never been discussion about being a candidate for an ICD, he claims. He has a chronic pleural effusion, which has had 5 thoracenteses, and the sixth time included placement of a pleural tube for drainage which she has had for 1-1/2 weeks. This is not uncomfortable for him and in fact has helped him not be short of breath. He is on home oxygen at 3.5- 4 L continuously, especially at night, but he takes it off briefly during the day when he is awake. He got very short of breath in the last 2 days with severe orthopnea and the called an ambulance. He was obtunded from hypercarbia in the ER, was started on a BIPAP and chest x-ray showed both heart failure and pneumonia. He is diuresing and the BIPAP has helped him waken. His ABGs show that he is a chronic CO2 retainer, despite not carrying a dignosis of COPD. He will be treated for community-acquired pneumonia, diuresed for his CHF and also treated for a UTI, found by urinalysis. His medications for hypertension, and systolic heart failure will continue. - Goals of Care Goals of care determinations: Goals as above and he will complete and sign a POLST form, he wishes to be a DNR. The remembers that the patient filled out a long form regarding his advanced directives, with the help of a tax advisor, which is at home and she will bring it in. He does not want to be intubated and on a ventilator. - Plan Plan: He will sign a POLST. Code status will be changed to DNR/DNI. - Code Status Code Status: Do Not Attempt Resuscitation - Time Spent on Advance Care Planning Time spent on advance care plannin min
[2018-11-03] MEDS: cefTRIAXone 2 GM in SODIUM CHLORIDE 0.9% MINIBAG 100 ML IV SCH (19:57)
[2018-11-03] MEDS: SODIUM CHLORIDE FLUSH 0.9% 10 ML SYRINGE IVP SCH (19:57)
[2018-11-03] MEDS: FAMOTIDINE 20 MG/2 ML VIAL IVP SCH (20:35)
[2018-11-03] MEDS: CARVEDILOL 12.5 MG TABLET PO SCH (20:35)
[2018-11-03] MEDS: AZITHROMYCIN INJ 500 MG in SODIUM CHLORIDE 0.9% 250 ML IV SCH (20:35)
--- NOTE | 2018-11-03 21:47 | HISTORY & PHYSICAL EXAMINATION ---
DATE OF SERVICE: 11/03/2018 Physician: Dara Fan MD HISTORY OF PRESENT ILLNESS: This is an 87-year-old white male with a history of congestive heart failure, on beta blockers, NOAH inhibitors, and Lasix. He has a history of coronary artery disease with prior stenting, peripheral vascular disease, depression, hard of hearing, and osteoarthritis. The patient also has a chronic left pleural effusion, for which he has undergone at least 5 thoracenteses, and by report of the , there is no malignancy. One and a half weeks ago, he underwent placement of a chest tube for further drainage, which has had successful drainage, 600 mL were drained by him just yesterday. He is on home oxygen continuously, set at 3.5-4L per nasal cannula. Over the last 1-2 days, he has developed rapidly worsening shortness of breath, was too weak and too short of breath to dress himself, and the called an ambulance today. In the emergency room, he was found to be very tachypneic, and a blood gas showed that he was hypercarbic with metabolic acidosis. He was started on a BiPAP mask. He was very somnolent, presumably because of the hypercarbia, and has now improved, is alert and able to answer questions in full sentences, even wearing his BiPAP. He tells me there has been no chest pain, no changes in medications, no travel, no cough, fever, nausea, vomiting, or diarrhea. He has not had this type of rapidly progressive shortness of breath or obtundation in his past history. PAST MEDICAL HISTORY: Coronary artery disease with stent, CHF, PVD, depression, hard of hearing, osteoarthritis, chronic left pleural effusion with several thoracenteses, now with a left pleural drainage device. ALLERGIES: ADHESIVE TAPE, LIPITOR, BUPROPION, HYDRALAZINE, DARVON, ALDACTONE, BACTRIM, FLOMAX. MEDICATIONS 1. Lasix 80 mg p.o. daily to as high as 240 mg p.o. daily. 2. Potassium 10 mEq b.i.d. 3. Lisinopril 40 mg daily. 4. Chlorhexidine oral rinse daily. 5. Coreg 25 mg b.i.d. 6. Aspirin 81 mg daily. 7. Trazodone 50 mg q.p.m. p.r.n. 8. Multivitamin daily. 9. Tylenol with codeine p.r.n. pain. SOCIAL HISTORY: The patient lives with his , is ambulatory. [place] The patient never smoked, drinks rare to no alcohol. FAMILY HISTORY: No inherited diseases. REVIEW OF SYSTEMS: A comprehensive review of systems was performed and the pertinent positives are listed above, the rest are negative. PHYSICAL EXAMINATION GENERAL: Elderly white male. He is in mild respiratory distress only while speaking, and wearing a BiPAP mask. VITAL SIGNS: Blood pressure 125/70, heart rate 66-70, in sinus rhythm, afebrile, oxygen saturation 97% on his BiPAP settings. HEENT: Reveals moist oral mucosa. Good dentition. BiPAP mask on. NECK: Positive JVD. LUNGS: Clear at the anterior bases. No wheezes, rales, or rhonchi. HEART: Heart sounds are distant. No audible murmurs or gallop. ABDOMEN: Soft, nontender. No organomegaly. Decreased bowel sounds. EXTREMITIES: No clubbing, cyanosis, or edema. NEUROLOGIC: Grossly intact, which is improved from his obtundation that he had in the emergency room. LABORATORIES: Sodium 142, potassium 5.2, CO2 of 34, BUN 26, creatinine 0.8. Lactic acid 1.1. Bilirubin 1.7. Liver tests normal. Troponin 0.04, then 0.06. BNP 2363. Lipase normal. White blood count 4.5 with a normal differential, platelet count 126, hemoglobin 13 with an MCV elevated at 100. Nasal screen negative for MRSA. Urinalysis abnormal with a pH of 5, specific gravity 1.02, high protein, large occult blood, rare white cells, high sediment, many bacteria, and moderate stranding. Blood gas with pH of 7.2, pCO2 of 90, pO2 of 328. On repeat after several adjustments, pH of 7.34, pCO2 of 74, pO2 of 155. DIAGNOSTIC DATA: Chest x-ray: Bilateral infiltrates, mild pulmonary edema, and mild bilateral pleural effusions. EKG: Normal sinus rhythm, left bundle branch block. An Echo is being done at the bedside currently, which shows LV enlargement, moderate global hypokinesis, EF is roughly estimated at 30%, and he has pulmonary hypertension with PA pressure in the 80s. IMPRESSION/DIAGNOSES 1. Altered mental status. This is already improved with slight resolution of his hypercarbia. 2. Community-acquired pneumonia. 3. Hypercarbia. 4. [id number] systolic and diastolic heart failure. 5. Chronic pleural effusion. 6. Urinary tract infection. 7. Pulmonary hypertension. 8. Hyperkalemia. 9. History of coronary artery disease. 10. Peripheral vascular disease. 11. Depression. 12. Hard of hearing. 13. Degenerative joint disease. PLAN: Admit into the ICU, on telemetry, with BiPAP support, titrate this down as tolerated, following his blood gas. Resume his beta anthony, NOAH inhibitor, and begin IV diuresis, following I's and O's and daily weights carefully. Follow BMP and magnesium, BNP daily. Begin empiric treatment for community- acquired pneumonia, blood cultures have already been done, and will order sputum culture. We will use IV ceftriaxone and IV Zithromax. Follow his chest x-ray daily for several days, especially because of the drainage tube in place, to assess that it is continuing to drain appropriately. Ceftriaxone, used as above, will also cover urinary tract bacteria. Unfortunately, HE HAS AN ALLERGY TO SPIRONOLACTONE; therefore, it will not be added to his diuretics. Continue with his aspirin and statin for his history of CAD and PVD, and continue his antidepressant and arthritic medications. CODE STATUS: DNR. DEEP VENOUS THROMBOSIS PROPHYLAXIS: ERICA stockings and sequential compression devices. ATTESTATION: The patient is expected to be discharged or transferred to another facility within 96 hours: Yes. TD: 11/03/2018 19:00 [place]
[2018-11-04] MEDS: SODIUM CHLORIDE FLUSH 0.9% 10 ML SYRINGE IVP SCH ×3 (04:40→15:56)
[2018-11-04 05:53] LABS: BASOPHILS % (AUTO) 0.1 %; EOSINOPHILS % (AUTO) 0.9 %; HGB - HEMOGLOBIN 11.4 g/dL (14.0-18.0); LYMPHOCYTES # (AUTO) 0.2 10^3/uL (1.5-3.5); LYMPHOCYTES % (AUTO) 5.5 %; MEAN CORPUSCULAR HEMOGLOBIN 33.3 pg (27.0-31.0); MEAN CORPUSCULAR HGB CONC 33.1 g/dL (32.0-36.0); MEAN CORPUSCULAR VOLUME 100.6 fL (80.0-94.0); MEAN PLATELET VOLUME 7.6 fL (7.4-11.4); MONOCYTES # (AUTO) 0.6 10^3/uL (0.0-1.0); MONOCYTES % (AUTO) 16.3 %; NEUTROPHILS % (AUTO) 77.2 %; PLT - PLATELET COUNT 101 10^3/uL (130-450); RED BLOOD COUNT 3.43 10^6/uL (4.70-6.10); RED CELL DISTRIBUTION WIDTH 13.8 % (12.0-15.0); WHITE BLOOD COUNT 3.9 x10^3/uL (4.8-10.8)
[2018-11-04 06:03] LABS: ALBUMIN 2.9 g/dL (3.2-5.5); ALBUMIN/GLOBULIN RATIO 0.9 (1.0-2.2); ALKALINE PHOSPHATASE 68 IU/L (42-121); ALT ALANINE AMINOTRANSFERASE < 10 IU/L (10-60); AST ASPARTATE AMINOTRANSFERASE 13 IU/L (10-42); BILIRUBIN,TOTAL 1.2 mg/dL (0.2-1.0); BUN - BLOOD UREA NITROGEN 28 mg/dL (6-20); CALCIUM 8.8 mg/dL (8.5-10.3); CARBON DIOXIDE - CO2 38 mmol/L (21-32); CHLORIDE 97 mmol/L (101-111); CREATININE 0.8 mg/dL (0.6-1.2); GFR - MDRD 92 (>89); GLUCOSE 105 mg/dL (70-100); MAGNESIUM 1.9 mg/dL (1.7-2.8); SODIUM 144 mmol/L (135-145); TOTAL PROTEIN 6.3 g/dL (6.7-8.2)
[2018-11-04] MEDS ORDERED: FUROSEMIDE 40 MG/4 ML VIAL IVP SCH (09:00)
[2018-11-04] MEDS: ASPIRIN EC 81 MG TABLET PO SCH (09:04)
[2018-11-04] MEDS: LISINOPRIL 20 MG TABLET PO SCH (09:04)
[2018-11-04] MEDS: MULTIVITAMIN TABLET PO SCH (09:04)
[2018-11-04] MEDS: FAMOTIDINE 20 MG/2 ML VIAL IVP SCH (09:05)
[2018-11-04] MEDS: POLYETHYLENE GLYCOL 3350 17 GM PACKET PO SCH (09:12)
--- NOTE | 2018-11-04 09:22 | XRAY Report ---
Reason: F/U L pleural effusion w/ drain, infiltrates CHF Procedure Date: 11/04/2018 Accession Number: [id number] / [id number] Procedure: XR - Chest 1 View X-Ray CPT Code: 17423 FULL RESULT: EXAM: CHEST RADIOGRAPHY EXAM DATE: 11/04/2018 09:05 AM. CLINICAL HISTORY: Followup left pleural effusion w/ drain, infiltrates, CHF. COMPARISON: CHEST 1 VIEW 11/03/2018 9:51 AM. TECHNIQUE: 1 view. FINDINGS: Lungs/Pleura: Bilateral pleural effusions are redemonstrated, decreased on the left compared to prior and essentially unchanged on the right. Mediastinum: Stable appearing cardiomegaly with calcification of the aortic arch. Other: Left pleural drain is unchanged. IMPRESSION: Interval decrease in left pleural effusion. RADIA
[2018-11-04 10:04] LABS: ABG HCO3 37.8 mmol/L (22.0-26.0); ABG PH 7.35 (7.35-7.45)
[2018-11-04 10:05] LABS: ABG BASE EXCESS 9.8 mmol/L (-2.0-3.0); ABG OXYGEN SATURATION 99 % (94-98); ALLEN TEST POSITIVE
[2018-11-04 10:09] LABS: ABG PCO2 70 mmHg (34-45); ABG PO2 181 mmHg (80-100)
--- NOTE | 2018-11-04 10:24 | PROVIDER PROGRESS NOTE ---
Assessment/Plan - Problem List (1) Acute on chronic systolic and diastolic heart failure, NYHA class 3 Assessment/Plan: Reason for CHF exacerbation is not clear: there was no acute ME, no medication or dietary non-compliance, no med changes or new home antibiotics, for example. Perhaps the current POSSIBLE pneumonia and the UTI caused cardiac stress and heart failure. Echo shows a similar low EF to his past one done 5 years ago. He is (-)3L fluid balance since admission. He was able to be titrated off the BIPAP, therefore his pureed diet will be advanced. It appears he is a chronic CO2 retainer, by ABGs. Will transition iv Lasix to po. Continue his B-anthony and NOAH, he cannot be on Spironolactone due to ALLERGY to that. Increase activity, start PT, transfer out of ICU later today, if stable oxyg enation off BIPAP. (2) Elevated troponin Assessment/Plan: The troponins are "flat", which is not consistent with an acute ME, but probably from his CHF. (3) Chronic pleural effusion Assessment/Plan: The tube is well positioned. The patient (and family) know how to manage it, no orders were given to nursing. There are instructions from his Thoracic dsurgeon to have the sutures (only) removed in 2 weeks, and he is about 1 and 1/2 weeks aout from placement. (4) CAP (community acquired pneumonia) Assessment/Plan: Daily CXRs were ordered and today a different Radiologist did not feel he had infiltrates (I discussed today's findings with Dr Bland). Will give 3 days of empiric antibiotics, or longer if any cultures turn pos. (5) UTI (urinary tract infection) Assessment/Plan: Awaiting urine and blood cultures. Continue empiric antibiotics. Will obtain abdomen/pelvis imaging to evaluate for stones or other obstructive findings. Will plan a 21 day course of treatment in a male patient. (6) Pancytopenia Assessment/Plan: Etiology unclear, especially in the face of UTI and possible CAP. This may be evidence of bone narrow suppression by a viral infection. Continue to monitor daily CBC. (7) Hx of coronary artery disease Assessment/Plan: No ME this admission. Continue statin and aspirin and the other cardiac meds as in #1 (8) Osteoarthritis Assessment/Plan: Pain meds and anti-inflammatories prn (9) [place] (hard of hearing) Assessment/Plan: This and poor vision are present. - Current Meds Current Meds: Current Medications Generic Name Dose Route Start Last Admin Trade Name Maurilio PRN Reason Stop Dose Admin Aspirin 81 mg 11/04/18 09:00 11/04/18 09:04 Ecotrin PO 81 mg DAILY HOMER Administration Carvedilol 25 mg 11/03/18 21:00 11/03/18 20:35 Coreg PO 25 mg BID HOMER Administration Famotidine 20 mg 11/03/18 21:00 11/04/18 09:05 Pepcid IVP 20 mg BID HOMER Administration Furosemide 80 mg 11/04/18 09:00 11/04/18 09:12 Lasix Inj 40 Mg Vial IVP 80 mg DAILY HOMER Administration Ceftriaxone Sodium 2 gm/ 100 mls @ 200 mls/hr 11/03/18 19:00 11/03/18 20:35 Sodium Chloride IV Infused Q24H HOMER Infusion Azithromycin 500 mg/ Sodium 250 mls @ 250 mls/hr 11/03/18 20:00 11/03/18 21 :40 Chloride IV Infused Q24H HOMER Infusion Lisinopril 20 mg 11/04/18 09:00 11/04/18 09:04 Zestril PO 20 mg DAILY HOMER Administration Multivitamins 1 tab 11/04/18 08:00 11/04/18 09:04 Theragran PO 1 tab DAILYWM HOMER Administration Polyethylene Glycol 17 gm 11/04/18 09:00 11/04/18 09:12 Miralax PO 17 gm DAILY HOMER Administration Sodium Chloride 10 ml 11/03/18 17:00 11/04/18 09:03 Normal Saline Flush 0.9% IVP 10 ml 0100,0900,1700 HOMER Administration - Lab Result Fish Bone Diagrams: 11/04/18 05:17 11/04/18 05:17 - Additional Planning My Orders: My Active Orders 11/03/18 12:42 Activity Orders [RC] Q2HR Daily Weight [RC] 0600 IO [RC] Q1HR IV Insert [RC] ONCE Initiate Bowel Care Protocol [RC] QSHIFT Initiate Bronchodialator Shy [RC] .PROTOCOL Initiate ICU Electrolyte Prot. [RC] .protocol Initiate Line Care Protocol [RC] .protocol Initiate Lung Inflation Protoc [RC] .PROTOCOL Initiate Personal Care Protoco [RC] .protocol Initiate Secretion Clearance P [RC] .PROTOCOL Vital Signs [RC] Q2HR Morphine Inj [Morphine] 2 mg IVP Q2H PRN Prochlorperazine Inj [Compazine Inj] 10 mg IVP Q6HR PRN Sodium Chloride Flush 0.9% [Normal Saline Flush 0.9%] 10 ml IVP PRN PRN Code Status [OTHERS] Routine Condition of Patient [OTHERS] Routine DVT Prophylaxis [OTHERS] Routine 11/03/18 12:50 BIPAP/CPAP - RT [RC] Routine Blood Glucose POC [RC] Routine Oral Care - Nursing [RC] Routine Oxygen Therapy [RC] Routine Telemetry- [RC] Q4HR Turn and Reposition [RC] Routine 11/03/18 12:51 ERICA Hose and SCDs [RC] QSHIFT 11/03/18 12:53 Echo Transthoracic Complete [ECHO] Routine 11/03/18 13:55 Arterial Blood Gases - RT [RC] .ONCE 11/03/18 17:00 Sodium Chloride Flush 0.9% [Normal Saline Flush 0.9%] 10 ml IVP 0100,0900,1700 11/03/18 19:00 cefTRIAXone [Rocephin] 2 gm Sodium Chloride 0.9% Minibag [Normal Saline 0.9% Minibag] 100 ml IV Q24H 11/03/18 20:00 Azithromycin Inj [Zithromax Inj] 500 mg Sodium Chloride 0.9% [Normal Saline 0.9%] 250 ml IV Q24H 11/03/18 21:00 Carvedilol [Coreg] 25 mg PO BID Famotidine [Pepcid] 20 mg IVP BID 11/03/18 Dinner DIET [Dysphagia Puree Diet] [DIET] 11/04/18 08:00 Multivitamin [Theragran] 1 tab PO DAILYWM 11/04/18 09:00 Aspirin EC [Ecotrin] 81 mg PO DAILY FUROSEMIDE INJ 40mg VIAL [LASIX INJ 40 mg VIAL] 80 mg IVP DAILY Lisinopril [Zestril] 20 mg PO DAILY Polyethylene Glycol 3350 [Miralax] 17 gm PO DAILY 11/04/18 09:36 Arterial Blood Gases - RT [RC] .ONCE 11/05/18 05:00 CBC - COMP BLD CT W/AUTO DIFF [HEME] DAILYLAB CMP [COMPREHENSIVE METABOLIC PANEL] [CHEM] DAILYLAB MAGNESIUM [CHEM] DAILYLAB 11/05/18 09:00 Chest 1 View X-Ray [XR] DAILY 11/06/18 05:00 CBC - COMP BLD CT W/AUTO DIFF [HEME] DAILYLAB CMP [COMPREHENSIVE METABOLIC PANEL] [CHEM] DAILYLAB MAGNESIUM [CHEM] DAILYLAB 11/07/18 05:00 CMP [COMPREHENSIVE METABOLIC PANEL] [CHEM] DAILYLAB Subjective - Subjective Patient Reports: Feeling Better, Resting Comfortably Nursing Reports: Other (Able to take off BIPAP to eat breakfast) Objective Vital Signs: Vital Signs - 24 hr 11/03/18 11/03/18 11/03/18 10:30 11:09 11:30 Temperature 36.7 C Heart Rate 104 H 100 88 Heart Rate [ Monitoring electrodes] Respiratory 30 H 28 H Rate Blood Pressure 164/87 H 157/72 H Blood Pressure [Right Brachial artery] O2 Saturation 100 96 11/03/18 11/03/18 11/03/18 11:59 12:00 12:30 Temperature Heart Rate 87 95 81 Heart Rate [ Monitoring electrodes] Respiratory 35 H 29 H 28 H Rate Blood Pressure 157/72 H 149/75 H 143/68 H Blood Pressure [Right Brachial artery] O2 Saturation 95 96 96 11/03/18 11/03/18 11/03/18 12:33 13:00 13:18 Temperature 97.4 C H Heart Rate 78 79 Heart Rate [ 74 Monitoring electrodes] Respiratory 26 H 21 Rate Blood Pressure 136/60 H Blood Pressure 142/70 H [Right Brachial artery] O2 Saturation 96 98 11/03/18 11/03/18 11/03/18 13:19 13:31 13:45 Temperature 36.1 C L Heart Rate 74 Heart Rate [ 70 Monitoring electrodes] Respiratory 20 23 Rate Blood Pressure 142/70 H 130/57 L Blood Pressure 129/63 [Right Brachial artery] O2 Saturation 99 11/03/18 11/03/18 11/03/18 14:00 14:30 14:50 Temperature Heart Rate 68 Heart Rate [ 71 67 Monitoring electrodes] Respiratory 24 21 Rate Blood Pressure Blood Pressure 127/57 L 119/69 [Right Brachial artery] O2 Saturation 92 95 11/03/18 11/03/18 11/03/18 15:00 16:00 16:40 Temperature 97.2 C H Heart Rate 69 Heart Rate [ 66 71 Monitoring electrodes] Respiratory 23 25 H Rate Blood Pressure Blood Pressure 125/60 125/57 L [Right Brachial artery] O2 Saturation 98 99 11/03/18 11/03/18 11/03/18 17:00 18:00 19:00 Temperature Heart Rate Heart Rate [ 66 73 80 Monitoring electrodes] Respiratory 23 28 H 23 Rate Blood Pressure Blood Pressure 124/69 125/55 L 136/69 H [Right Brachial artery] O2 Saturation 96 97 98 11/03/18 11/03/18 11/03/18 19:20 20:00 20:29 Temperature Heart Rate 71 78 Heart Rate [ 81 Monitoring electrodes] Respiratory 23 Rate Blood Pressure Blood Pressure 115/54 L [Right Brachial artery] O2 Saturation 100 11/03/18 11/03/18 11/03/18 21:00 21:48 22:00 Temperature Heart Rate 66 Heart Rate [ 71 66 Monitoring electrodes] Respiratory 35 H 27 H Rate Blood Pressure Blood Pressure 115/56 L 115/57 L [Right Brachial artery] O2 Saturation 100 97 11/03/18 11/03/18 11/04/18 23:00 23:31 00:00 Temperature Heart Rate 64 Heart Rate [ 65 65 Monitoring electrodes] Respiratory 24 26 H Rate Blood Pressure Blood Pressure 114/52 L 109/55 L [Right Brachial artery] O2 Saturation 97 96 11/04/18 11/04/18 11/04/18 01:00 01:45 02:00 Temperature Heart Rate 66 Heart Rate [ 65 70 Monitoring electrodes] Respiratory 19 23 Rate Blood Pressure Blood Pressure 97/50 L 117/57 L [Right Brachial artery] O2 Saturation 97 97 11/04/18 11/04/18 11/04/18 03:00 03:35 04:00 Temperature 37.7 C H Heart Rate 61 Heart Rate [ 60 60 Monitoring electrodes] Respiratory 20 21 Rate Blood Pressure Blood Pressure 98/52 L 116/59 L [Right Brachial artery] O2 Saturation 95 96 11/04/18 11/04/18 11/04/18 05:00 05:35 06:00 Temperature Heart Rate 57 L Heart Rate [ 65 64 Monitoring electrodes] Respiratory 26 H 21 Rate Blood Pressure Blood Pressure 97/54 L 118/63 [Right Brachial artery] O2 Saturation 96 95 11/04/18 11/04/18 07:00 09:00 Temperature Heart Rate Heart Rate [ 63 74 Monitoring electrodes] Respiratory 21 27 H Rate Blood Pressure Blood Pressure 125/60 130/90 H [Right Brachial artery] O2 Saturation 96 99 Oxygen O2 Source Oxymizer Oxygen Flow Rate 2 I&O (Last 24 Hrs): Intake and Output Totals x24h 11/02/18 11/03/18 11/04/18 23:59 23:59 23:59 Intake Total 684 310 Output Total 2342 395 Balance -7388 -85 General: Alert, Oriented x3 HEENT: Mucous membr. moist/pink, Other (Wearing oximizer) Neck: Supple, No JVD, Other (Has a dowagers hump) Neuro: Non Focal Cardiovascular: No murmurs Respiratory: No respiratory distress Abdomen: Soft Extremities: No edema - Results Results: Laboratory Results WBC 3.9 x10^3/uL (4.8-10.8) L 11/04/18 05:17 RBC 3.43 10^6/uL (4.70-6.10) L 11/04/18 05:17 Hgb 11.4 g/dL (14.0-18.0) L 11/04/18 05:17 Hct 34.5 % (42.0-52.0) L 11/04/18 05:17 MCV 100.6 fL (80.0-94.0) H 11/04/18 05:17 MCH 33.3 pg (27.0-31.0) H 11/04/18 05:17 MCHC 33.1 g/dL (32.0-36.0) 11/04/18 05:17 RDW 13.8 % (12.0-15.0) 11/04/18 05:17 Plt Count 101 10^3/uL (130-450) L 11/04/18 05:17 MPV 7.6 fL (7.4-11.4) 11/04/18 05:17 Neut # (Auto) 3.0 10^3/uL (1.5-6.6) 11/04/18 05:17 Lymph # (Auto) 0.2 10^3/uL (1.5-3.5) L 11/04/18 05:17 Faulk # (Auto) 0.6 10^3/uL (0.0-1.0) 11/04/18 05:17 Eos # (Auto) 0.0 10^3/uL (0.0-0.7) 11/04/18 05:17 Baso # (Auto) 0.0 10^3/uL (0.0-0.1) 11/04/18 05:17 Absolute Nucleated RBC 0.00 x10^3/uL 11/04/18 05:17 Nucleated RBC % 0.0 /100WBC 11/04/18 05:17 Bld Gas Analysis Time 09:58 11/04/18 09:58 Sample Site RIGHT RADIAL 11/04/18 09:58 ABG pH 7.35 (7.35-7.45) 11/04/18 09:58 ABG pCO2 70 mmHg (34-45) H* 11/04/18 09:58 ABG pO2 181 mmHg (80-100) H* 11/04/18 09:58 ABG HCO3 37.8 mmol/L (22.0-26.0) H 11/04/18 09:58 ABG Total CO2 40.0 MMOL/L (21.0-29.0) H* 11/04/18 09:58 ABG O2 Saturation 99 % (94-98) H 11/04/18 09:58 ABG Oximetry Spot Check 96 % 11/03/18 12:40 ABG Base Excess 9.8 mmol/L (-2.0-3.0) H 11/04/18 09:58 Jez Test POSITIVE 11/04/18 09:58 VBG pH 7.338 (7.31-7.41) 11/03/18 16:05 VBG pCO2 73.3 mmHg (41-51) H 11/03/18 16:05 VBG pO2 25.2 mmHg (25-47) 11/03/18 16:05 VBG HCO3 38.5 mmol/L (23-28) H 11/03/18 16:05 VBG Total CO2 40.7 mmol/L (24-29) H 11/03/18 16:05 VBG O2 Saturation 45.6 % (60-80) L 11/03/18 16:05 VBG Base Excess 9.9 mmol/L (-2 - +2) H 11/03/18 16:05 Respiration Rate 14 b/min 11/03/18 14:25 O2 Delivery Device OXYMIZER 11/04/18 09:58 Vent Mode SYNCHRONOUS/TIMES 04/14/19 14:25 FiO2 0.40 11/03/18 14:25 Tidal Volume 440 mL 11/03/18 12:40 Pressure Support Vent 11 cmH2O 11/03/18 12:40 EPAP 5 cmH2O 11/03/18 14:25 IPAP 16 cmH2O 11/03/18 14:25 Sodium 144 mmol/L (135-145) 11/04/18 05:17 Potassium 4.4 mmol/L (3.5-5.0) 11/04/18 05:17 Chloride 97 mmol/L (101-111) L 11/04/18 05:17 Carbon Dioxide 38 mmol/L (21-32) H 11/04/18 05:17 Anion Gap 9.0 (6-13) 11/04/18 05:17 BUN 28 mg/dL (6-20) H 11/04/18 05:17 Creatinine 0.8 mg/dL (0.6-1.2) 11/04/18 05:17 Estimated GFR (MDRD) 92 (>89) 11/04/18 05:17 Glucose 105 mg/dL (70-100) H 11/04/18 05:17 Lactic Acid 1.1 mmol/L (0.5-2.2) 11/03/18 10:29 Calcium 8.8 mg/dL (8.5-10.3) 11/04/18 05:17 Phosphorus 3.5 mg/dL (2.5-4.6) 11/04/18 05:17 Magnesium 1.9 mg/dL (1.7-2.8) 11/04/18 05:17 Total Bilirubin 1.2 mg/dL (0.2-1.0) H 11/04/18 05:17 AST 13 IU/L (10-42) 11/04/18 05:17 ALT < 10 IU/L (10-60) L 11/04/18 05:17 Alkaline Phosphatase 68 IU/L (42-121) 11/04/18 05:17 Troponin I 0.07 ng/mL (<0.49) 11/03/18 22:55 B-Natriuretic Peptide 748 pg/mL (5-100) H 11/04/18 05:17 Total Protein 6.3 g/dL (6.7-8.2) L 11/04/18 05:17 Albumin 2.9 g/dL (3.2-5.5) L 11/04/18 05:17 Globulin 3.4 g/dL (2.1-4.2) 11/04/18 05:17 Albumin/Globulin Ratio 0.9 (1.0-2.2) L 11/04/18 05:17 Lipase 17 U/L (22-51) L 11/03/18 10:29 Vitamin B12 261 pg/mL (180-914) 11/03/18 16:05 Folate 10.36 ng/mL (5.90 - >24.8) 11/03/18 16:05 Urine Color YELLOW 11/03/18 11:55 Urine Clarity HAZY (CLEAR) 11/03/18 11:55 Urine pH 5.0 PH (5.0-7.5) 11/03/18 11:55 Ur Specific [place] 1.020 (1.002-1.030) 11/03/18 11:55 Urine Protein 100 mg/dL (NEGATIVE) H 11/03/18 11:55 Urine Glucose (UA) NEGATIVE mg/dL (NEGATIVE) 11/03/18 11:55 Urine Ketones NEGATIVE mg/dL (NEGATIVE) 11/03/18 11:55 Urine Occult Blood LARGE (NEGATIVE) H 11/03/18 11:55 Urine Nitrite NEGATIVE (NEGATIVE) 11/03/18 11:55 Urine Bilirubin NEGATIVE (NEGATIVE) 11/03/18 11:55 Urine Urobilinogen 1 (NORMAL) E.U./dL (NORMAL) 11/03/18 11:55 Ur Leukocyte Esterase NEGATIVE (NEGATIVE) 11/03/18 11:55 Urine RBC TNTC /HPF (0-5) H 11/03/18 11:55 Urine WBC 0-3 /HPF (0-3) 11/03/18 11:55 Ur Squamous Epith Cells MOD Squamous (<= Few) H 11/03/18 11:55 Amorphous Sediment Marked /LPF 11/03/18 11:55 Urine Bacteria Many /HPF (None Seen) H 11/03/18 11:55 Urine Casts >50 Granular Casts /LPF>50 Hyaline Casts /LPF 11/03/18 11:55 Urine Casts >50 Granular Casts /LPF>50 Hyaline Casts /LPF 11/03/18 11:55 Urine Mucus Moderate Strands 11/03/18 11:55 Ur Microscopic Review INDICATED 11/03/18 11:55 Urine Culture Comments NOT INDICATED 11/03/18 11:55 Nasal Screen MRSA (PCR) NEGATIVE (NEGATIVE) 11/03/18 13:37 - Procedures Procedures: Procedures EXCISION OF RECTUM, ENDO (08/05/18)
[2018-11-04] MEDS: CARVEDILOL 12.5 MG TABLET PO SCH ×2 (10:33→21:57)
[2018-11-04] MEDS: cefTRIAXone 2 GM in SODIUM CHLORIDE 0.9% MINIBAG 100 ML IV SCH (19:42)
[2018-11-04] MEDS: FAMOTIDINE 20 MG TABLET PO SCH (21:57)
[2018-11-04] MEDS: SODIUM CHLORIDE FLUSH 0.9% 10 ML SYRINGE IVP PRN (22:03)
[2018-11-04] MEDS: AZITHROMYCIN INJ 500 MG in SODIUM CHLORIDE 0.9% 250 ML IV SCH (22:03)
[2018-11-05] MEDS: SODIUM CHLORIDE FLUSH 0.9% 10 ML SYRINGE IVP SCH ×3 (01:17→17:52)
[2018-11-05 06:05] LABS: BASOPHILS % (AUTO) 0.1 %; EOSINOPHILS % (AUTO) 1.7 %; HGB - HEMOGLOBIN 11.3 g/dL (14.0-18.0); LYMPHOCYTES # (AUTO) 0.2 10^3/uL (1.5-3.5); MEAN CORPUSCULAR HEMOGLOBIN 33.2 pg (27.0-31.0); MEAN CORPUSCULAR HGB CONC 32.7 g/dL (32.0-36.0); MEAN CORPUSCULAR VOLUME 101.4 fL (80.0-94.0); MEAN PLATELET VOLUME 7.7 fL (7.4-11.4); MONOCYTES # (AUTO) 0.5 10^3/uL (0.0-1.0); MONOCYTES % (AUTO) 17.6 %; NEUTROPHILS # (AUTO) 2.2 10^3/uL (1.5-6.6); NEUTROPHILS % (AUTO) 73.6 %; PLT - PLATELET COUNT 108 10^3/uL (130-450); RED CELL DISTRIBUTION WIDTH 14.1 % (12.0-15.0)
[2018-11-05 06:23] LABS: ALBUMIN 2.9 g/dL (3.2-5.5); ALBUMIN/GLOBULIN RATIO 0.9 (1.0-2.2); ALKALINE PHOSPHATASE 74 IU/L (42-121); ALT ALANINE AMINOTRANSFERASE < 10 IU/L (10-60); AST ASPARTATE AMINOTRANSFERASE 11 IU/L (10-42); BILIRUBIN,TOTAL 0.8 mg/dL (0.2-1.0); BUN - BLOOD UREA NITROGEN 28 mg/dL (6-20); CALCIUM 8.5 mg/dL (8.5-10.3); CARBON DIOXIDE - CO2 43 mmol/L (21-32); CHLORIDE 91 mmol/L (101-111); CREATININE 0.8 mg/dL (0.6-1.2); GFR - MDRD 92 (>89); GLUCOSE 127 mg/dL (70-100); MAGNESIUM 1.9 mg/dL (1.7-2.8); SODIUM 138 mmol/L (135-145); TOTAL PROTEIN 6.2 g/dL (6.7-8.2)
--- NOTE | 2018-11-05 06:41 | XRAY Report ---
Reason: F/U L pleural effusion w/ drain, infiltrates CHF Procedure Date: 11/05/2018 Accession Number: [id number] / [id number] Procedure: XR - Chest 1 View X-Ray CPT Code: 92676 FULL RESULT: EXAM: CHEST RADIOGRAPHY EXAM DATE: 11/05/2018 06:27 AM. CLINICAL HISTORY: F/U L pleural effusion w/ drain, infiltrates CHF. COMPARISON: CHEST 1 VIEW 11/04/2018 8:51 AM. TECHNIQUE: 1 view. FINDINGS: Lungs/Pleura: No significant interval change in left pleural effusion. Left basilar pleural drain in place. Right effusion appears stable. Patchy basilar airspace disease. No pneumothorax. Mediastinum: Within exam limitations, the cardiomediastinal contour is normal. Other: None. IMPRESSION: No significant interval change and effusions and basilar airspace disease. Stable left basilar pleural drain. RADIA
[2018-11-05] MEDS: CARVEDILOL 12.5 MG TABLET PO SCH ×2 (09:02→20:55)
[2018-11-05] MEDS: FUROSEMIDE 40 MG TABLET PO SCH (09:02)
[2018-11-05] MEDS: ASPIRIN EC 81 MG TABLET PO SCH (09:02)
[2018-11-05] MEDS: MULTIVITAMIN TABLET PO SCH (09:02)
[2018-11-05] MEDS: FAMOTIDINE 20 MG TABLET PO SCH ×2 (09:02→20:19)
[2018-11-05] MEDS: LISINOPRIL 20 MG TABLET PO SCH (09:02)
[2018-11-05] MEDS: POLYETHYLENE GLYCOL 3350 17 GM PACKET PO SCH (09:02)
--- NOTE | 2018-11-05 12:25 | Ultrasound Report ---
Reason: acute renal failure Procedure Date: 11/05/2018 Accession Number: [id number] / [id number] Procedure: US - Retroperitoneal CPT Code: FULL RESULT: EXAM: RENAL ULTRASOUND EXAM DATE: 11/05/2018 10:54 AM. CLINICAL HISTORY: Acute renal failure. COMPARISON: None. TECHNIQUE: Real-time scanning was performed with static images obtained. FINDINGS: Right Kidney: 11.1 x 4.7 x 4.9 cm. Tiny renal cyst of no significance. Normal echotexture with no stones, contour-deforming masses, or hydronephrosis. Left Kidney: 12.1 x 5.9 x 5.6 cm. There are at least 3 tiny cysts of no significance. Normal echotexture with no stones, contour-deforming masses, or hydronephrosis. Bladder: Bilateral ureter jets not seen because bladder is decompressed with Tomas catheter. . Other: None. IMPRESSION: No significant renal abnormality. No evidence of atrophy or hydronephrosis. RADIA
--- NOTE | 2018-11-05 16:59 | PROVIDER PROGRESS NOTE ---
Subjective - Prog Note Date Prog Note Date: 11/05/18 Prog Note Time: 17:06 - Subjective Pt reports feeling: Improved Subjective: He states he is better than it was 2 days ago. But he still pretty weak, tired. He complains that just trying to reposition himself in bed makes him quickly short of breath. He is been able to get up and walk to the bathroom but that made him short of breath. He walked 25 feet with standby assist. He laments the fact that I took out his Tomas. He thought it was very convenient.In addition to the dyspnea on exertion, leg pain that appears to be musculoskeletal limits him. Leg pain is not present at rest. In his legs and feet just ache when he puts him on the ground to stand much less walk. Other than dyspnea on exertion, fatigue, no new complaints. Current Medications - Current Medications Current Medications: Active Medications Aspirin (Ecotrin) 81 mg PO DAILY [facility] Last Admin: 11/05/18 09:02 Dose: 81 mg Carvedilol (Coreg) 25 mg PO BID [facility] Last Admin: 11/05/18 09:02 Dose: 25 mg Famotidine (Pepcid) 20 mg PO BID [facility] Last Admin: 11/05/18 09:02 Dose: 20 mg Furosemide (Lasix) 80 mg PO DAILY [facility] Last Admin: 11/05/18 09:02 Dose: 80 mg Ceftriaxone Sodium 2 gm/ (Sodium Chloride) 100 mls @ 200 mls/hr IV Q24H [facility] Stop: 11/06/18 23:59 Last Infusion: 11/04/18 20:12 Dose: Infused Azithromycin 500 mg/ Sodium (Chloride) 250 mls @ 250 mls/hr IV Q24H [facility] Stop: 11/06/18 23:59 Last Infusion: 11/04/18 23:03 Dose: Infused Lisinopril (Zestril) 20 mg PO DAILY [facility] Last Admin: 11/05/18 09:02 Dose: 20 mg Morphine Sulfate (Morphine) 2 mg IVP Q2H PRN PRN Reason: Dyspnea Multivitamins (Theragran) 1 tab PO DAILYWM [facility] Last Admin: 11/05/18 09:02 Dose: 1 tab Polyethylene Glycol (Miralax) 17 gm PO DAILY [facility] Last Admin: 11/05/18 09:02 Dose: Not Given Prochlorperazine Edisylate (Compazine Inj) 10 mg IVP Q6HR PRN PRN Reason: Nausea / Vomiting Sodium Chloride (Normal Saline Flush 0.9%) 10 ml IVP 0100,0900,1700 [facility] Last Admin: 11/05/18 09:03 Dose: 10 ml Sodium Chloride (Normal Saline Flush 0.9%) 10 ml IVP PRN PRN PRN Reason: NEEDED PER PROVIDER ORDERS Last Admin: 11/04/18 22:03 Dose: 10 ml Aspirin [Aspir 81] 81 mg PO DAILY 02/23/14 Carvedilol [Coreg] 25 mg PO BID 02/23/14 Furosemide 240 mg PO DAILY 02/23/14 Lisinopril 40 mg PO DAILY 02/23/14 Multivitamin [Multivitamins] 1 each PO DAILY 02/23/14 Chlorhexidine Gluconate 15 ml MM DAILY 11/03/18 Hydrocodone/Acetaminophen [Hydrocodone-Acetamin 5-325 mg] 0.5 tab PO DAILY PRN 11/03/18 Potassium Chloride 10 meq PO BID 11/03/18 Trazodone HCl 50 mg PO QPM 11/03/18 Objective - Vital Signs/Intake & Output Reviewed Vital Signs: Yes Vital Signs: Vital Signs x48h Temp Pulse Resp BP Pulse Ox 11/05/18 15:48 36.3 C L 64 18 109/49 L 11/05/18 11:42 36.3 C L 66 20 117/54 L 100 11/05/18 09:05 128/62 Intake & Output: Intake & Output 11/02/18 11/03/18 11/04/18 11/05/18 23:59 23:59 23:59 23:59 Intake Total 684 1200 570 Output Total 2342 2930 830 Balance -1658 -1730 -260 - Objective General Appearance: positive: No acute distress, Alert, Other (Elderly white male, watching TV, deaf, who is comfortable at rest, but appears fatigued with a muted affect) Eyes Bilateral: positive: PERRL ENT: positive: Other (Nasal tone of voice, mouth breather even at rest) Neck: positive: No JVD. negative: Stiff neck, Carotid bruit Respiratory: positive: Chest non-tender, Other (At rest it is slow unlabored r espiration and really quiet breath sounds diminished at the bases. After sitting up for me gets a little bit more tachypneic, better air movement with the increased respiratory rate but no distress. Left chest wall tube in place). negative: Wheezes, Rales, Rhonchi Cardiovascular: positive: Regular rate & rhythm, Systolic murmur. negative: Gallop/S4, Friction rub Abdomen: positive: Non-tender, No organomegaly, Nml bowel sounds, No distention, Other (Obese) Skin: positive: Warm, Dry Extremities: positive: Pedal edema (Multiple venous spider veins over his feet, distal tib-fib and malleoli. No skin breakdown) Neurologic/Psychiatric: positive: Oriented x3, Weakness. negative: CN's nml (2- 12) (Deaf), Facial droop, Slurred/abnml speech - Lab Results Fish Bones: 11/05/18 05:34 11/05/18 05:34 Other Labs: Lab Results x24hrs 11/05/18 11/05/18 Range/Units 05:34 05:34 WBC 3.0 L (4.8-10.8) x10^3/uL RBC 3.40 L (4.70-6.10) 10^6/uL Hgb 11.3 L (14.0-18.0) g/dL Hct 34.5 L (42.0-52.0) % MCV 101.4 H (80.0-94.0) fL MCH 33.2 H (27.0-31.0) pg MCHC 32.7 (32.0-36.0) g/dL RDW 14.1 (12.0-15.0) % Plt Count 108 L (130-450) 10^3/uL MPV 7.7 (7.4-11.4) fL Neut # (Auto) 2.2 (1.5-6.6) 10^3/uL Lymph # (Auto) 0.2 L (1.5-3.5) 10^3/uL [place] # (Auto) 0.5 (0.0-1.0) 10^3/uL Eos # (Auto) 0.0 (0.0-0.7) 10^3/uL Baso # (Auto) 0.0 (0.0-0.1) 10^3/uL Absolute Nucleated RBC 0.00 x10^3/uL Nucleated RBC % 0.0 /100WBC Sodium 138 (135-145) mmol/L Potassium 4.2 (3.5-5.0) mmol/L Chloride 91 L (101-111) mmol/L Carbon Dioxide 43 H* (21-32) mmol/L Anion Gap 4.0 L (6-13) BUN 28 H (6-20) mg/dL Creatinine 0.8 (0.6-1.2) mg/dL Estimated GFR (MDRD) 92 (>89) Glucose 127 H (70-100) mg/dL Calcium 8.5 (8.5-10.3) mg/dL Magnesium 1.9 (1.7-2.8) mg/dL Total Bilirubin 0.8 (0.2-1.0) mg/dL AST 11 (10-42) IU/L ALT < 10 L (10-60) IU/L Alkaline Phosphatase 74 (42-121) IU/L Total Protein 6.2 L (6.7-8.2) g/dL Albumin 2.9 L (3.2-5.5) g/dL Globulin 3.3 (2.1-4.2) g/dL Albumin/Globulin Ratio 0.9 L (1.0-2.2) ABX Reporting Has patient been on IV antibiotics over the past 48 hours?: Yes Assessment/Plan - Problem List (1) Acute on chronic systolic and diastolic heart failure, NYHA class 3 Impression: Reason for CHF exacerbation is not clear: there was no acute NY, no medication or dietary non-compliance, no med changes or new home antibiotics, for example. Perhaps the current POSSIBLE pneumonia and the UTI caused cardiac stress and heart failure. Echo shows a similar low EF to his past one done 5 years ago. He is [phone] fluid balance since admission. He was able to be titrated off the BIPAP, therefore his pureed diet will be advanced. On Med Surg he is still godoy w minimal exertion such as changing his position in the bed. Did get up to go to BR and godoy. It appears he is a chronic CO2 retainer, by ABGs. transitioned from ICU to Med Surg yesterday. On po Lasix now. Continue his B-anthony and NOAH, he cannot be on Spironolactone due to ALLERGY to that. Increase activity and has started working with PT Hopefully goes home on 11/06 or 11/07 at the latest. (2) Elevated troponin Assessment/Plan: The troponins are "flat", which is not consistent with an acute NY, but probably from his CHF. (3) Chronic pleural effusion Assessment/Plan: The tube is well positioned. The patient (and family) know how to manage it, no orders were given to nursing. There are instructions from his Thoracic surgeon to have the sutures (only) removed in 2 weeks, and he is about 1 and 1/2 weeks out from placement. (4) CAP (community acquired pneumonia) Assessment/Plan: Daily CXRs were ordered and 11/04 a different Radiologist did not feel he had infiltrates (Hospitalist discussed findings with Dr Bland). Will give 3 days of empiric antibiotics, or longer if any cultures turn pos. Cultures have been negative at 48 hours. Today is 3rd day so will stop after today's dose and monitor for fever, elevated WBC. (5) UTI (urinary tract infection) Assessment/Plan: Awaiting urine and blood cultures. Blood cultures are negative and no urine cultures were ordered. Continue empiric antibiotics. Renal US neg for obstruction or stones. Tomas discontinued today and he laments that. He likes the convenience and I explained the recurrent UTI risk. Will plan a 21 day course of treatment in a male patient. (6) Pancytopenia Assessment/Plan: Etiology unclear, especially in the face of UTI and possible CAP. This may be evidence of bone narrow suppression by a viral infection but he has had this as far as EMR goes into 2012 so chronicity belys that. 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 He has had a bone marrow biopsy in February 2014 and it was within normal limits. No dysplasia or malignant cells. Flow cytometry and cytogenetics were also within normal limits. No intervention was required. And other than routine follow-up of his labs, no other therapy recommended after being seen by Dr. Mendoza. Continue to monitor daily CBC. (7) Hx of coronary artery disease Assessment/Plan: No NY this admission. Continue statin and aspirin and the other cardiac meds as in #1 (8) Osteoarthritis Assessment/Plan: Pain meds and anti-inflammatories prn (9) [place] (hard of hearing) Assessment/Plan: This and poor vision are present.
[2018-11-05] MEDS: levoFLOXacin 250 MG TABLET PO SCH (17:51)
[2018-11-05] MEDS: cefTRIAXone 2 GM in SODIUM CHLORIDE 0.9% MINIBAG 100 ML IV SCH (18:51)
[2018-11-05] MEDS: AZITHROMYCIN INJ 500 MG in SODIUM CHLORIDE 0.9% 250 ML IV SCH (20:08)
[2018-11-05] MEDS: SODIUM CHLORIDE FLUSH 0.9% 10 ML SYRINGE IVP PRN (20:09)
[2018-11-06] MEDS: SODIUM CHLORIDE FLUSH 0.9% 10 ML SYRINGE IVP SCH ×3 (01:19→17:17)
[2018-11-06 06:23] LABS: BASOPHILS % (AUTO) 0.4 %; EOSINOPHILS # (AUTO) 0.1 10^3/uL (0.0-0.7); LYMPHOCYTES # (AUTO) 0.2 10^3/uL (1.5-3.5); LYMPHOCYTES % (AUTO) 8.3 %; MEAN CORPUSCULAR HEMOGLOBIN 33.2 pg (27.0-31.0); MEAN CORPUSCULAR HGB CONC 32.5 g/dL (32.0-36.0); MEAN CORPUSCULAR VOLUME 102.1 fL (80.0-94.0); MEAN PLATELET VOLUME 7.3 fL (7.4-11.4); MONOCYTES # (AUTO) 0.5 10^3/uL (0.0-1.0); MONOCYTES % (AUTO) 17.2 %; NEUTROPHILS % (AUTO) 72.1 %; PLT - PLATELET COUNT 110 10^3/uL (130-450); RED BLOOD COUNT 3.33 10^6/uL (4.70-6.10); WHITE BLOOD COUNT 2.7 x10^3/uL (4.8-10.8)
[2018-11-06 06:37] LABS: ALBUMIN 2.9 g/dL (3.2-5.5); ALBUMIN/GLOBULIN RATIO 0.9 (1.0-2.2); ALKALINE PHOSPHATASE 72 IU/L (42-121); ALT ALANINE AMINOTRANSFERASE < 10 IU/L (10-60); AST ASPARTATE AMINOTRANSFERASE 11 IU/L (10-42); BILIRUBIN,TOTAL 0.6 mg/dL (0.2-1.0); BUN - BLOOD UREA NITROGEN 25 mg/dL (6-20); CALCIUM 8.2 mg/dL (8.5-10.3); CHLORIDE 90 mmol/L (101-111); CREATININE 0.8 mg/dL (0.6-1.2); GFR - MDRD 92 (>89); GLUCOSE 115 mg/dL (70-100); MAGNESIUM 1.7 mg/dL (1.7-2.8); SODIUM 137 mmol/L (135-145); TOTAL PROTEIN 6.2 g/dL (6.7-8.2)
[2018-11-06 06:38] LABS: CARBON DIOXIDE - CO2 41 mmol/L (21-32)
[2018-11-06] MEDS: FUROSEMIDE 40 MG TABLET PO SCH (08:29)
[2018-11-06] MEDS: levoFLOXacin 250 MG TABLET PO SCH (08:29)
[2018-11-06] MEDS: MULTIVITAMIN TABLET PO SCH (08:31)
[2018-11-06] MEDS: ASPIRIN EC 81 MG TABLET PO SCH (08:31)
[2018-11-06] MEDS: CARVEDILOL 12.5 MG TABLET PO SCH ×2 (08:31→21:33)
[2018-11-06] MEDS: POLYETHYLENE GLYCOL 3350 17 GM PACKET PO SCH (08:31)
[2018-11-06] MEDS: LISINOPRIL 20 MG TABLET PO SCH (08:31)
[2018-11-06] MEDS: FAMOTIDINE 20 MG TABLET PO SCH ×2 (08:31→21:33)
[2018-11-06] MEDS: SACCHAROMYCES BOULARDII 250 MG CAPSULE PO SCH ×2 (11:16→17:16)
--- NOTE | 2018-11-06 21:08 | PROVIDER PROGRESS NOTE ---
Subjective - Prog Note Date Prog Note Date: 11/06/18 Prog Note Time: 21:08 - Subjective Subjective: he feels his chest to be more open, can breathe easier. getting up to chair and bathroom. son is here from [place] and we spent 45 minutes discussing dad's case and condition. New item for me was 40-50 lb wt loss over 2 years and he's had been worked up for cancer for this but nothing found. UOP has slowed down with po lasix. went over his preadmit ROS again, and is compliant w his meds, no dietary indiscretion. Current Medications - Current Medications Current Medications: Active Medications Aspirin (Ecotrin) 81 mg PO DAILY [facility] Last Admin: 11/06/18 08:31 Dose: 81 mg Carvedilol (Coreg) 25 mg PO BID [facility] Last Admin: 11/06/18 08:31 Dose: 25 mg Famotidine (Pepcid) 20 mg PO BID [facility] Last Admin: 11/06/18 08:31 Dose: 20 mg Furosemide (Lasix) 80 mg PO DAILY [facility] Last Admin: 11/06/18 08:29 Dose: 80 mg Levofloxacin (Levaquin) 500 mg PO DAILY [facility] Last Admin: 11/06/18 08:29 Dose: 500 mg Lisinopril (Zestril) 20 mg PO DAILY [facility] Last Admin: 11/06/18 08:31 Dose: 20 mg Morphine Sulfate (Morphine) 2 mg IVP Q2H PRN PRN Reason: Dyspnea Multivitamins (Theragran) 1 tab PO DAILYWM [facility] Last Admin: 11/06/18 08:31 Dose: 1 tab Polyethylene Glycol (Miralax) 17 gm PO DAILY [facility] Last Admin: 11/06/18 08:31 Dose: Not Given Prochlorperazine Edisylate (Compazine Inj) 10 mg IVP Q6HR PRN PRN Reason: Nausea / Vomiting Saccharomyces Boulardii (Florastor) 250 mg PO BIDWM [facility] Last Admin: 11/06/18 17:16 Dose: 250 mg Sodium Chloride (Normal Saline Flush 0.9%) 10 ml IVP 0100,0900,1700 [facility] Last Admin: 11/06/18 17:17 Dose: 10 ml Sodium Chloride (Normal Saline Flush 0.9%) 10 ml IVP PRN PRN PRN Reason: NEEDED PER PROVIDER ORDERS Last Admin: 11/05/18 20:09 Dose: 10 ml Aspirin [Aspir 81] 81 mg PO DAILY 02/23/14 Carvedilol [Coreg] 25 mg PO BID 02/23/14 Furosemide 240 mg PO DAILY 02/23/14 Lisinopril 40 mg PO DAILY 02/23/14 Multivitamin [Multivitamins] 1 each PO DAILY 02/23/14 Chlorhexidine Gluconate 15 ml MM DAILY 11/03/18 Hydrocodone/Acetaminophen [Hydrocodone-Acetamin 5-325 mg] 0.5 tab PO DAILY PRN 11/03/18 Potassium Chloride 10 meq PO BID 11/03/18 Trazodone HCl 50 mg PO QPM 11/03/18 Objective - Vital Signs/Intake & Output Reviewed Vital Signs: Yes Vital Signs: Vital Signs x48h Temp Pulse Resp BP Pulse Ox 11/06/18 15:55 36.3 C L 73 20 115/51 L 100 Intake & Output: Intake & Output 11/03/18 11/04/18 11/05/18 11/06/18 23:59 23:59 23:59 23:59 Intake Total 684 1200 1190 860 Output Total 2342 2930 1280 825 Balance -1658 -1730 -90 35 - Objective General Appearance: positive: No acute distress, Alert, Other (tall elderly wh ite male in his chair. speaking easily) Eyes Bilateral: positive: PERRL ENT: positive: Pharynx nml Neck: positive: No JVD. negative: Stiff neck, Carotid bruit Respiratory: positive: Chest non-tender. negative: Wheezes, Rales, Rhonchi Cardiovascular: positive: Regular rate & rhythm, Systolic murmur. negative: Gallop/S4, Friction rub Abdomen: positive: Non-tender, Nml bowel sounds, No distention Skin: positive: Warm, Dry, Pallor Extremities: positive: Full ROM, Pedal edema (minimal) Neurologic/Psychiatric: positive: Oriented x3, CN's nml (2-12) (x mildly deaf), Motor nml. negative: Facial droop, Slurred/abnml speech, Depressed mood/affect - Lab Results Fish Bones: 11/06/18 05:55 11/06/18 05:55 Other Labs: Lab Results x24hrs 11/06/18 11/06/18 Range/Units 05:55 05:55 WBC 2.7 L (4.8-10.8) x10^3/uL RBC 3.33 L (4.70-6.10) 10^6/uL Hgb 11.0 L (14.0-18.0) g/dL Hct 34.0 L (42.0-52.0) % MCV 102.1 H (80.0-94.0) fL MCH 33.2 H (27.0-31.0) pg MCHC 32.5 (32.0-36.0) g/dL RDW 14.0 (12.0-15.0) % Plt Count 110 L (130-450) 10^3/uL MPV 7.3 L (7.4-11.4) fL Neut # (Auto) 2.0 (1.5-6.6) 10^3/uL Lymph # (Auto) 0.2 L (1.5-3.5) 10^3/uL [place] # (Auto) 0.5 (0.0-1.0) 10^3/uL Eos # (Auto) 0.1 (0.0-0.7) 10^3/uL Baso # (Auto) 0.0 (0.0-0.1) 10^3/uL Absolute Nucleated RBC 0.00 x10^3/uL Nucleated RBC % 0.0 /100WBC Sodium 137 (135-145) mmol/L Potassium 4.3 (3.5-5.0) mmol/L Chloride 90 L (101-111) mmol/L Carbon Dioxide 41 H* (21-32) mmol/L Anion Gap 6.0 (6-13) BUN 25 H (6-20) mg/dL Creatinine 0.8 (0.6-1.2) mg/dL Estimated GFR (MDRD) 92 (>89) Glucose 115 H (70-100) mg/dL Calcium 8.2 L (8.5-10.3) mg/dL Magnesium 1.7 (1.7-2.8) mg/dL Total Bilirubin 0.6 (0.2-1.0) mg/dL AST 11 (10-42) IU/L ALT < 10 L (10-60) IU/L Alkaline Phosphatase 72 (42-121) IU/L Total Protein 6.2 L (6.7-8.2) g/dL Albumin 2.9 L (3.2-5.5) g/dL Globulin 3.3 (2.1-4.2) g/dL Albumin/Globulin Ratio 0.9 L (1.0-2.2) ABX Reporting Has patient been on IV antibiotics over the past 48 hours?: Yes Assessment/Plan - Problem List (1) Acute on chronic systolic and diastolic heart failure, NYHA class 3 Impression: Reason for CHF exacerbation is not clear: there was no acute AL, no medication or dietary non-compliance, no med changes or new home antibiotics, for example. Perhaps the current POSSIBLE pneumonia and the UTI caused cardiac stress and heart failure. Echo shows a similar low EF to his past one done 5 years ago. He is (-)3-4 liter fluid balance since admission. He was able to be titrated off the BIPAP, therefore his pureed diet was advanced and now eating normal diet. Transitioned from ICU to Med Surg 11/04 On Med Surg he was godoy w minimal exertion such as changing his position in the bed. Did get up to go to BR and godoy. that has improved and he has been able to walk 150 feet today with PT. Occupational therapy feels he has no need. It appears he is a chronic CO2 retainer, by ABGs. On po Lasix now and his UOP has slowed down so that I/O are equal now for the last day. Not negative. Continue his B-anthony and NOAH, he cannot be on Spironolactone due to ALLERGY to that. Increased activity and is working with PT. He feels like he has approached baseline. To go home in am. (2) Elevated troponin Assessment/Plan: The troponins are "flat", which is not consistent with an acute AL, but probably from his CHF. (3) Chronic pleural effusion Assessment/Plan: The tube is well positioned. The patient (and family) know how to manage it, no orders were given to nursing. There are instructions from his Thoracic surgeon to have the sutures (only) removed in 2 weeks, and he is about 1 and 1/2 weeks out from placement. (4) CAP (community acquired pneumonia) Assessment/Plan: Daily CXRs were ordered and 11/04 a different Radiologist did not feel he had infiltrates (Hospitalist discussed findings with Dr Bland). Will give 3 days of empiric antibiotics, or longer if any cultures turn pos. Cultures have been negative at 48 hours. Today is 3rd day so will stop after today's dose and monitor for fever, elevated WBC. (5) UTI (urinary tract infection) Assessment/Plan: Blood cultures are negative and no urine cultures were ordered. On levaquin to cover. Renal US neg for obstruction or stones. Tomas discontinued 11/05 and he laments that. He likes the convenience and I explained the recurrent UTI risk. Will plan a 21 day course of treatment in a male patient. (6) Pancytopenia Assessment/Plan: Etiology unclear, especially in the face of UTI and possible CAP. This may be evidence of bone narrow suppression by a viral infection but he has had this as far as EMR goes into 2012 so chronicity belys that. 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 He has had a bone marrow biopsy in February 2014 and it was within normal limits. No dysplasia or malignant cells. Flow cytometry and cytogenetics were also within normal limits. No intervention was required. And other than routine follow-up of his labs, no other therapy recommended after being seen by Dr. Mendoza. Continue to monitor daily CBC. 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 I have asked him to make sure he doesn't need further followup with oncology. (7) Hx of coronary artery disease Assessment/Plan: No AL this admission. Continue statin and aspirin and the other cardiac meds as in #1 (8) Osteoarthritis Assessment/Plan: Pain meds and anti-inflammatories prn (9) [place] (hard of hearing) Assessment/Plan: This and poor vision are present.
[2018-11-07] MEDS: SODIUM CHLORIDE FLUSH 0.9% 10 ML SYRINGE IVP SCH ×2 (00:40→08:06)
[2018-11-07 07:15] LABS: ALBUMIN 2.8 g/dL (3.2-5.5); ALBUMIN/GLOBULIN RATIO 0.9 (1.0-2.2); ALKALINE PHOSPHATASE 71 IU/L (42-121); ALT ALANINE AMINOTRANSFERASE < 10 IU/L (10-60); AST ASPARTATE AMINOTRANSFERASE 13 IU/L (10-42); BILIRUBIN,TOTAL 0.6 mg/dL (0.2-1.0); BUN - BLOOD UREA NITROGEN 22 mg/dL (6-20); CALCIUM 8.5 mg/dL (8.5-10.3); CHLORIDE 90 mmol/L (101-111); CREATININE 0.9 mg/dL (0.6-1.2); GFR - MDRD 80 (>89); GLUCOSE 113 mg/dL (70-100); SODIUM 140 mmol/L (135-145)
[2018-11-07 07:16] LABS: CARBON DIOXIDE - CO2 > 45 mmol/L (21-32)
[2018-11-07] MEDS: MULTIVITAMIN TABLET PO SCH (08:05)
[2018-11-07] MEDS: SACCHAROMYCES BOULARDII 250 MG CAPSULE PO SCH (08:05)
[2018-11-07] MEDS: FAMOTIDINE 20 MG TABLET PO SCH (08:05)
[2018-11-07] MEDS: ASPIRIN EC 81 MG TABLET PO SCH (08:06)
[2018-11-07] MEDS: LISINOPRIL 20 MG TABLET PO SCH (08:06)
[2018-11-07] MEDS: levoFLOXacin 250 MG TABLET PO SCH (08:06)
[2018-11-07] MEDS: CARVEDILOL 12.5 MG TABLET PO SCH (08:06)
[2018-11-07] MEDS: POLYETHYLENE GLYCOL 3350 17 GM PACKET PO SCH (08:06)
[2018-11-07] MEDS: FUROSEMIDE 40 MG TABLET PO SCH (08:06)
[2018-11-07] MEDS ORDERED: FUROSEMIDE 40 MG/4 ML VIAL IVP STA (09:07)
--- NOTE | 2018-11-07 09:23 | Discharge Plan ---
Discharge Plan Disposition: 01 Home, Self Care Condition: Stable Prescriptions: levoFLOXacin [Levaquin] 500 mg PO DAILY #14 tablet Torsemide 20 mg PO BID #60 tablet Diet: Cardiac Activity Restrictions: Activity as Tolerated Shower Restrictions: No Driving Restrictions: Yes (limit driving to the [place]) Additional Instructions or Follow Up instructions: You were admitted to the hospital because you were having severe shortness of breath and were starting to get very confused and sleepy. We found you to be in congestive heart failure, and retaining carbon dioxide. We put you in the ICU and put on a facemask called BiPAP to help you breathe better, and we gave you intravenous Lasix to help you urinate and get rid of excessive body fluid. You still have a problem with retaining carbon dioxide. Please see your buckle and button maker in follow-up. I also spoke to Dr. Barkley, your new internist medical doctor md, since Dr. Carrera left. It seems like high doses of Lasix at home are not working. So we are stopping the Lasix and putting you on torsemide [address] Barkley would like you to see the cardiac heart failure nurse next week at the clinic in [place]. Please call them up and make that appointment. I am also strongly recommending that you get physical therapy. You are relatively homebound and not able to drive at this time. You live with your and she does not do the driving. I was hoping to order home health with physical therapy but they will take close to 2 weeks to get to your house. So you feel that you would rather do outpatient physical therapy and make an effort to leave the house. I will make a referral to [facility]. Follow-Up Care: [facility] - CHF Classes No Smoking: If you smoke, Please STOP! Call for help. Follow-up with: Tish Moser DO [Primary Care Provider] -
[2018-11-07] MEDS: SODIUM CHLORIDE FLUSH 0.9% 10 ML SYRINGE IVP PRN (09:38)
[2018-11-07 10:33] VITALS: BP 108/46
--- NOTE | 2018-11-13 22:13 | DISCHARGE SUMMARY ---
Physician: Isatu Zhang MD DATE OF ADMISSION: 11/03/2018 DATE OF DISCHARGE: 11/07/2018 DISCHARGE DIAGNOSES 1. Kwyyt-xu-cqibwip systolic heart failure, class 3. 2. Abnormal troponins. 3. Chronic right pleural effusion. 4. Community-acquired pneumonia. 5. Urinary tract infection. 6. Pancytopenia. 7. History of coronary artery disease. 9. Osteoarthritis. 10. Unexpected weight loss. 11. Chronic respiratory failure with hypercapnia. DISCHARGE MEDICATIONS 1. Aspirin 81 mg daily. 2. Coreg 25 mg p.o. b.i.d. 3. Hydrocodone with acetaminophen 5/325 one-half tablet p.o. daily. 4. Lisinopril 40 daily. 5. Multivitamin daily. 6. Potassium chloride 10 mEq p.o. b.i.d. 7. Trazodone 50 mg p.o. q.p.m. 8. Levaquin 500 mg p.o. daily. 9. Torsemide 20 mg p.o. b.i.d. From admission Lasix 240 mg p.o. daily was discontinued. PRINCIPAL PROCEDURES 1. Echocardiogram: Technically difficult study with limited views of left ventricle and valves. Mild left ventricular enlargement. Mild concentric left ventricular hypertrophy. Overall, left ventricular systolic function moderately impaired with an ejection fraction of 35-40%. Mild right ventricular enlargement. Right ventricular systolic function normal. Mild tricuspid regurgitation. Moderately abnormal right heart pressures. The RVSP at rest was 60 mmHg. 2. Chest x-ray on 11/03/2018, 11/04/2018 and 11/05/2018. He has bibasilar opacities suggesting vucfi-oo-oogngplz effusions and atelectasis and/or consolidation. This was increased from 09/03/2018, chest x-ray. Repeat chest x-rays during his stay showed no significant interval change of effusion or basilar airspace disease. He has a stable left basilar pleural drain. 3. Retroperitoneal ultrasound showed no significant renal abnormality. No evidence of atrophy or hydronephrosis. 4. Tomas placement. HOSPITAL COURSE: Patient is an 87-year-old white male, who has bilateral pleural effusions. With the left one, he has a PleurX catheter that allows him to drain himself on a weekly basis. He says he takes out anywhere from 600 to 800 mL. He has a history of coronary artery disease with prior stenting, peripheral vascular disease, depression, deafness and osteoarthritis. He is at home on home oxygen continuously, set at 3-4 liters nasal cannula. Over the last 1-2 days before admission, he developed rapidly worsening shortness of breath, was too weak and too short of breath to dress himself, and called an ambulance on the day of admission. In the emergency room, he was tachypneic. Blood gas showed he was hypercarbic with metabolic acidosis. He was started on a BiPAP mask. Very somnolent because of the hypercarbia. Once he was placed on BiPAP, diuresed, he had improved to the point of being alert and able to answer questions in full sentences while still in the emergency room and while even still wearing BiPAP. He was able to state to the hospitalist that there was no chest pain, no changes in medications, no travel, no cough, no fever, nausea, vomiting or diarrhea. He does not ever remember having this type of rapidly progressive shortness of breath or obtundation. He knows that he can get tired and sleepy, but that is a slow process and his shortness of breath is chronic. Further evaluation, showed him to have a normal lactic acid. White cell count 4.5. Platelets 126. Hemoglobin 13. The chest x-ray was reviewed, and when we be explained to him and his what we were finding, they were felt like we were describing the same chest xray findings he has had for close to 2 years. Urinalysis, however, had proteinuria, large amount of occult blood, too numerous to count red cells, squamous cells, bacteria. No urine culture was submitted. Blood culture was negative after 5 days. He was felt to be mvhuw-yj-hsaderm systolic and diastolic heart failure. Echocardiogram was obtained and showed the above findings. Because of the possible new left pneumonia that the family was unaware of, he was put on empiric antibiotics. After 2-3 days, however, those were stopped. He slowly improved his shortness of breath over time. He was continued on Levaquin for possible UTI. Pancytopenia history was reviewed. He had a bone marrow biopsy done in 02/2014, and it was within normal limits. The bone marrow biopsy was done for the same pancytopenia. There was no dysplasia or malignant cells. Flow cytometry and cytogenetics were also within normal limits. No intervention was required. Dr. Mendoza, the oncologist at that time, suggested just routine followup CBCs. No other therapy. He had no symptoms of angina during his stay. However, his troponins were chronically mildly elevated. He was 0.040, 0.06 and 0.07. Carbon dioxide during his stay did rise from 38 to 45 at discharge. I did speak to his retention representative. He recommended that we stop the Lasix 240 mg a day and switch him over to torsemide 20 mg p.o. b.i.d. That was Dr. Barkley. I also spoke to his reel worker, and the reel worker requested an overnight oximetry. By then, patient was already going to be discharged. As such, his reel worker was going to be setting that up for him. Patient also explained to me that he has lost about 40 pounds in the last 2 years. He has been evaluated for cancer. He tells me that they were looking for mesothelioma and that was one of the reasons they did have thoracentesis in the past. I explained to him that he may want to follow up with oncology again, or his PCP. I also asked patient to please start physical therapy. He is unable to drive at this time, has become homebound because of his weakness, fatigue and dyspnea on exertion, but because it was going to take close to 3 weeks to get physical therapy to get to his house, he opted to go home and ask his primary care provider to give him a referral to [facility]. He is discharged in stable condition. Alert, weak, tired, but able to sit up in bed. Getting up out of bed and walking to the toilet makes him tachypneic, and the Tomas is no longer in place. He laments that because he really liked the ease of not having to get up and the Tomas did the work for him. PHYSICAL EXAMINATION VITAL SIGNS: Temperature is 36.2. Pulse is 66. Blood pressure is 108/46, respirations 20. He is on 4 liters. This is almost back down to his baseline, what he does at home. He does have some mild JVD in the upright position, but I only goes up 1 fingerbreadth. LUNGS: Have coarse tubular airway sounds. The left lung sounds worse than the right lung with that. Right lung has diminished breath sounds at the bases, but there are no crackles, rhonchi or egophony. No increased respiratory effort, unless he gets up to walk across the room. PMI is normally placed with a systolic ejection murmur. ABDOMEN: Soft, nontender. No organomegaly. Normal bowel sounds. He has trace edema around his ankles. He is alert, weak. No focal deficits. Greater than 30 minutes was spent coordinating discharge. TD: 11/13/2018 16:29 [place]
== END 2018-11-07 12:09 | disposition home or self-care (01) | DRG 291 ==
LOC: EDUNIT# → ED 09:44 → ICU 12:36 → MS2 11-04 20:16
PROVIDERS: ADMIT Internal Medicine; ATTEND Specialist
DX: I11.0 Hypertensive heart disease with heart failure (principal); I50.9 Heart failure, unspecified; J18.9 Pneumonia, unspecified organism; N39.0 Urinary tract infection, site not specified; J90 Pleural effusion, not elsewhere classified; D61.818 Other pancytopenia; J96.12 Chronic respiratory failure with hypercapnia; E87.2 Acidosis; I50.43 Acute on chronic combined systolic (congestive) and diastolic (congestive) heart failure; R79.89 Other specified abnormal findings of blood chemistry; R63.4 Abnormal weight loss; Z68.32 Body mass index [BMI] 32.0-32.9, adult; E87.5 Hyperkalemia; I27.20 Pulmonary hypertension, unspecified; I25.10 Atherosclerotic heart disease of native coronary artery without angina pectoris; I73.9 Peripheral vascular disease, unspecified; H91.90 Unspecified hearing loss, unspecified ear; F32.9 Major depressive disorder, single episode, unspecified; M19.90 Unspecified osteoarthritis, unspecified site; Z79.82 Long term (current) use of aspirin; Z79.899 Other long term (current) drug therapy; Z96.659 Presence of unspecified artificial knee joint; Z95.5 Presence of coronary angioplasty implant and graft; Z99.81 Dependence on supplemental oxygen
CPT/HCPCS: 36415; 36600; 51702; 71045; 76770; 80053; 81001; 82607; 82746; 82803; 83605; 83690; 83735; 83880; 84100; 84484; 85025; 87040; 87150; 93005; 93306; 94640; 94660; 97161; 97166; 97530; 99284; A9270; 81003; 87086

== ENCOUNTER 2018-12-19 13:17 | Outpatient (CLI) | payer MEDICARE, OTHER | END 2018-12-19 13:18 | disposition home or self-care (01) | LOC: SC 13:17 | PROVIDERS: ATTEND Nurse Practitioner Family | DX: G47.10 Hypersomnia, unspecified (principal); G47.8 Other sleep disorders; R06.83 Snoring; R06.81 Apnea, not elsewhere classified | CPT/HCPCS: 99215; G0463; 99212 ==

== ENCOUNTER 2019-01-11 20:28 | Outpatient (CLI) | payer MEDICARE, OTHER | END 2019-01-11 20:29 | disposition home or self-care (01) | LOC: SC 20:28 | PROVIDERS: ATTEND Internal Medicine Pulmonary Disease | DX: G47.33 Obstructive sleep apnea (adult) (pediatric) (principal); R09.02 Hypoxemia; Z99.81 Dependence on supplemental oxygen | CPT/HCPCS: 95810 ==

== ENCOUNTER 2019-01-14 13:26 | Outpatient (CLI) | payer MEDICARE, OTHER | END 2019-01-14 13:27 | disposition home or self-care (01) | LOC: SC 13:26 | PROVIDERS: ATTEND Nurse Practitioner Family | DX: G47.33 Obstructive sleep apnea (adult) (pediatric) (principal); R06.3 Periodic breathing; G47.61 Periodic limb movement disorder; I49.3 Ventricular premature depolarization | CPT/HCPCS: 99215; G0463; 99212 ==

== ENCOUNTER 2019-01-21 14:37 | Outpatient (CLI) | payer MEDICARE, OTHER ==
[2019-01-21 18:43] LABS: HGB - HEMOGLOBIN 11.6 g/dL (14.0-18.0); MEAN CORPUSCULAR HEMOGLOBIN 32.7 pg (27.0-31.0); MEAN CORPUSCULAR HGB CONC 30.6 g/dL (32.0-36.0); MEAN CORPUSCULAR VOLUME 106.8 fL (80.0-94.0); MEAN PLATELET VOLUME 9.8 fL (7.4-11.4); RED BLOOD COUNT 3.55 10^6/uL (4.70-6.10); RED CELL DISTRIBUTION WIDTH 12.9 % (12.0-15.0); WHITE BLOOD COUNT 4.4 x10^3/uL (4.8-10.8)
[2019-01-21 19:09] LABS: CALCIUM 8.9 mg/dL (8.5-10.3); CREATININE 0.9 mg/dL (0.6-1.2)
== END 2019-01-21 23:59 | disposition home or self-care (01) ==
LOC: LAB.N 14:37
PROVIDERS: ATTEND Family Medicine
DX: R06.09 Other forms of dyspnea (principal)
CPT/HCPCS: 36415; 80048; 83880; 85027

== ENCOUNTER 2019-01-21 14:37 | Outpatient (CLI) | payer MEDICARE, OTHER ==
--- NOTE | 2019-01-21 16:51 | XRAY Report ---
Reason: dyspnea on exertion Procedure Date: 01/21/2019 Accession Number: [id number] / [id number] Procedure: XRN - Chest 2 View X-Ray CPT Code: 46923 FULL RESULT: EXAM: CHEST RADIOGRAPHY EXAM DATE: 01/21/2019 03:10 PM. CLINICAL HISTORY: Dyspnea on exertion. COMPARISON: 11/05/2018. TECHNIQUE: 2 views. FINDINGS: Lungs/Pleura: Left pleural effusion with basilar drain in place. Compressive atelectasis left base. Small right pleural effusion and hypoventilatory change right base. Grossly clear upper lungs. No large pneumothorax. Mediastinum: Cardiomegaly. Other: Degenerative change in the spine and right shoulder. IMPRESSION: Left greater than right pleural effusions with left pleural drain in place. Associated basilar parenchymal changes. Clear upper lungs. Improved appearance on the right since 11/05/2018. Stable to minimally improved appearance on the left. RADIA
== END 2019-01-21 14:38 | disposition home or self-care (01) ==
LOC: DI.N 14:37
PROVIDERS: ATTEND Family Medicine
DX: J90 Pleural effusion, not elsewhere classified (principal); R06.09 Other forms of dyspnea
CPT/HCPCS: 36415; 71046; 80048; 83880; 85027

== ENCOUNTER 2019-01-31 20:57 | Outpatient (CLI) | payer MEDICARE, OTHER | END 2019-01-31 20:58 | disposition critical access hospital (66) | LOC: EMS 20:57 | PROVIDERS: ATTEND Surgery | DX: R06.00 Dyspnea, unspecified (principal) | CPT/HCPCS: A0425; A0429 ==

== ENCOUNTER 2019-01-31 21:15 | Inpatient (IN) | payer MEDICARE, OTHER ==
--- NOTE | 2019-01-31 21:50 | ED Physician Documentation ---
PD HPI DYSPNEA - Stated complaint Stated Complaint: SOA - Chief complaint Chief Complaint: Resp - History obtained from History obtained from: Patient - History of Present Illness Timing - onset: Today Timing - duration: Years (Worse over the past day.) Timing - details: Gradual onset Improved by: O2 Associated symptoms: No: Fever, Cough, Chest pain / discomfort Similar symptoms before: Diagnosis (CHF and chronic pleural effusion) Recently seen: Not recently seen - Additional information Additional information: This is an 88-year-old man with long-standing history of CHF and shortness of breath. He wears home O2 at 2 L. He has pleural effusion that he has a indwelling drain in. Usually he will drain out couple 100 cc on a daily basis but yesterday it only drained a small amount he thinks it may be clogged. He says his told him he passed out but when I talk to her she said that he just was not talking to her all day but not really loss of consciousness that she was aware of. Patient has had some increasing edema. Denies fever cough or chest pain. No dysuria. Review of Systems Constitutional: denies: Fever Nose: denies: Congestion Throat: denies: Sore throat Cardiac: reports: Pedal edema. denies: Chest pain / pressure, Palpitations Respiratory: reports: Dyspnea. denies: Cough GI: reports: Abdominal Pain (Has been having some achy dull diffuse abdominal pain). denies: Nausea, Vomiting : reports: Frequency. denies: Dysuria Skin: denies: Rash Musculoskeletal: reports: Extremity swelling PD PAST MEDICAL HISTORY - Past Medical History Past Medical History: Yes Cardiovascular: Hypertension, Coronary artery disease, Peripheral Vascular Disease Respiratory: Shortness of breath Endocrine/Autoimmune: None GI: GI bleed, Colon polyps : None HEENT: Chronic hearing loss, Other Psych: Depression Musculoskeletal: Osteoarthritis Derm: Other - Past Surgical History Past Surgical History: Yes General: Cholecystectomy Ortho: Knee replacement Cardiovascular: Coronary stent HEENT: Tonsil/Adenoidectomy, Other - Present Medications Home Medications: Ambulatory Orders Medication Instructions Recorded Confirmed RX: Aspirin [Aspir 81] 81 mg PO DAILY 02/23/14 01/31/19 RX: Carvedilol [Coreg] 12.5 mg PO BID 02/23/14 01/31/19 RX: Lisinopril 40 mg PO DAILY 02/23/14 01/31/19 RX: Multivitamin [Multivitamins] 1 each PO DAILY 02/23/14 01/31/19 RX: Chlorhexidine Gluconate 15 ml MM DAILY 11/03/18 01/31/19 RX: Hydrocodone/Acetaminophen 0.5 tab PO DAILY PRN 11/03/18 01/31/19 [Hydrocodone-Acetamin 5-325 mg] RX: Potassium Chloride 10 meq PO BID 11/03/18 01/31/19 RX: Trazodone HCl 50 mg PO QPM 11/03/18 11/03/18 RX: Torsemide 20 mg PO BID #60 tablet 11/07/18 01/31/19 - Allergies Allergies/Adverse Reactions: Allergies Allergy/AdvReac Type Severity Reaction Status Date / Time adhesive Allergy Rash Verified 01/31/19 21:27 atorvastatin calcium * Allergy Unknown Verified 01/31/19 21:27 [From Lipitor] bupropion Allergy Unknown Verified 01/31/19 21:27 hydralazine Allergy Unknown Verified 01/31/19 21:27 propoxyphene HCl * Allergy Unknown Verified 01/31/19 21:27 [From Darvon] spironolactone Allergy Unknown Verified 01/31/19 21:27 [From Aldactone] sulfamethoxazole Allergy Unknown Verified 01/31/19 21:27 [From Bactrim] tamsulosin [From Flomax] Allergy Unknown Verified 01/31/19 21:27 trimethoprim [From Bactrim] Allergy Unknown Verified 01/31/19 21:27 - Social History Does the pt smoke?: No Smoking Status: Never smoker Does the pt drink ETOH?: Yes Does the pt have substance abuse?: No - Immunizations Immunizations are current?: Yes - POLST Patient has POLST: Yes PD ED PE NORMAL - Vitals Vital signs reviewed: Yes - General General: Alert and oriented X 3, No acute distress, Well developed/nourished - HEENT HEENT: Atraumatic, PERRL, EOMI, Moist mucous membranes, Other (No scleral icterus) - Neck Neck: Supple, no meningeal sign, No adenopathy - Cardiac Cardiac: RRR, No murmur - Respiratory Respiratory: No respiratory distress, Other (Diminished breath sounds at the left base) - Abdomen Abdomen: Normal bowel sounds, Soft, Non tender - Derm Derm: Normal color, Warm and dry, No rash, Other (Scattered bruises) - Extremities Extremities: No: No edema (2+ pitting edema in the lower extremities bilaterally) - Neuro Neuro: Alert and oriented X 3, Normal speech, Other (No gross neurological deficits) - Psych Psych: Normal mood, Normal affect Results - Vitals Vitals: Vital Signs - 24 hr 01/31/19 01/31/19 01/31/19 21:21 21:43 21:46 Heart Rate 74 74 73 Respiratory 25 H 29 H 21 Rate Blood Pressure 151/81 H 85/75 L 149/69 H O2 Saturation 94 97 97 01/31/19 01/31/19 01/31/19 22:26 22:56 23:20 Heart Rate 72 72 93 Respiratory 22 26 H 16 Rate Blood Pressure 146/75 H 145/62 H 136/97 H O2 Saturation 98 100 99 01/31/19 23:46 Heart Rate 76 Respiratory 26 H Rate Blood Pressure 158/113 H O2 Saturation 96 Oxygen O2 Source [Without Activity] Oxymizer O2 Source Nasal cannula Oxygen Flow Rate 4 - EKG (time done) 2133 Rate: Rate (enter#) Rhythm: NSR, Other (Infrequent PVCs) Intervals: LBBB Ischemia: Non specific changes (ST changes consistent with the left bundle branch block.). No: T wave inversion Compare to prior EKG: Old EKG unavailable - Labs Labs: Laboratory Tests 01/31/19 01/31/19 01/31/19 22:00 22:00 22:00 WBC 4.8 RBC 3.31 L Hgb 10.4 L Hct 35.5 L MCV 107.3 H MCH 31.4 H MCHC 29.3 L RDW 13.5 Plt Count 137 MPV 10.2 Neut # (Auto) 3.9 Lymph # (Auto) 0.3 L [place] # (Auto) 0.6 Eos # (Auto) 0.0 Baso # (Auto) 0.0 Absolute Nucleated RBC 0.00 Nucleated RBC % 0.0 Sodium 143 Potassium 4.4 Chloride 99 L Carbon Dioxide 33 H Anion Gap 11.0 BUN 21 H Creatinine 0.8 Estimated GFR (MDRD) 92 Glucose 128 H Calcium 8.8 Total Bilirubin 1.1 H AST 12 ALT < 10 L Alkaline Phosphatase 74 Troponin I B-Natriuretic Peptide 1413 H Total Protein 7.1 Albumin 3.2 Globulin 3.9 Albumin/Globulin Ratio 0.8 L Lipase 20 L Urine Color Urine Clarity Urine pH Ur Specific [place] Urine Protein Urine Glucose (UA) Urine Ketones Urine Occult Blood Urine Nitrite Urine Bilirubin Urine Urobilinogen Ur Leukocyte Esterase Urine RBC Urine WBC Ur Squamous Epith Cells Urine Bacteria Urine Mucus Ur Microscopic Review Urine Culture Comments 01/31/19 01/31/19 22:00 22:25 WBC RBC Hgb Hct MCV MCH MCHC RDW Plt Count MPV Neut # (Auto) Lymph # (Auto) [place] # (Auto) Eos # (Auto) Baso # (Auto) Absolute Nucleated RBC Nucleated RBC % Sodium Potassium Chloride Carbon Dioxide Anion Gap BUN Creatinine Estimated GFR (MDRD) Glucose Calcium Total Bilirubin AST ALT Alkaline Phosphatase Troponin I 0.05 B-Natriuretic Peptide Total Protein Albumin Globulin Albumin/Globulin Ratio Lipase Urine Color DARK YELLOW Urine Clarity CLEAR Urine pH 6.0 Ur Specific [place] 1.020 Urine Protein 100 H Urine Glucose (UA) NEGATIVE Urine Ketones NEGATIVE Urine Occult Blood LARGE H Urine Nitrite NEGATIVE Urine Bilirubin NEGATIVE Urine Urobilinogen 2 H Ur Leukocyte Esterase NEGATIVE Urine RBC TNTC H Urine WBC 0-3 Ur Squamous Epith Cells FEW Squamous Urine Bacteria None Seen Urine Mucus Marked Strands Ur Microscopic Review INDICATED Urine Culture Comments NOT INDICATED - Rads (name of study) CXR Radiology: See rad report PD MEDICAL DECISION MAKING - ED course Complexity details: reviewed old records (The patient's BNP is elevated at 1400. Hemoglobin is normal. BUN and creatinine are essentially normal. Electrolytes are normal. Patient was given Lasix IV. He has had minimal urine output. Echocardiogram in October showed ejection fraction only 35 to 40%. He is requiring higher oxygen than his chronic 2 L at this time to maintain his sats. He is to be admitted for observation tonight and diuresis. Hospitalist did agree to accept him for observation.), reviewed results, d/w patient, d/w family Departure - Departure Disposition: ED Place in Observation Clinical Impression: Congestive heart failure Qualifiers: Heart failure type: unspecified Heart failure chronicity: acute on chronic Qualified Code(s): I50.9 - Heart failure, unspecified Condition: Good Discharge Date/Time: 02/01/19 00:45
[2019-01-31 22:10] LABS: BASOPHILS % (AUTO) 0.2 %; EOSINOPHILS % (AUTO) 0.8 %; HGB - HEMOGLOBIN 10.4 g/dL (14.0-18.0); LYMPHOCYTES # (AUTO) 0.3 10^3/uL (1.5-3.5); LYMPHOCYTES % (AUTO) 5.2 %; MEAN CORPUSCULAR HEMOGLOBIN 31.4 pg (27.0-31.0); MEAN CORPUSCULAR HGB CONC 29.3 g/dL (32.0-36.0); MEAN CORPUSCULAR VOLUME 107.3 fL (80.0-94.0); MEAN PLATELET VOLUME 10.2 fL (7.4-11.4); MONOCYTES # (AUTO) 0.6 10^3/uL (0.0-1.0); MONOCYTES % (AUTO) 11.5 %; NEUTROPHILS # (AUTO) 3.9 10^3/uL (1.5-6.6); NEUTROPHILS % (AUTO) 82.1 %; PLT - PLATELET COUNT 137 10^3/uL (130-450); RED BLOOD COUNT 3.31 10^6/uL (4.70-6.10); RED CELL DISTRIBUTION WIDTH 13.5 % (12.0-15.0); WHITE BLOOD COUNT 4.8 x10^3/uL (4.8-10.8)
[2019-01-31 22:20] LABS: ALBUMIN 3.2 g/dL (3.2-5.5); ALBUMIN/GLOBULIN RATIO 0.8 (1.0-2.2); ALKALINE PHOSPHATASE 74 IU/L (42-121); ALT ALANINE AMINOTRANSFERASE < 10 IU/L (10-60); AST ASPARTATE AMINOTRANSFERASE 12 IU/L (10-42); BILIRUBIN,TOTAL 1.1 mg/dL (0.2-1.0); BUN - BLOOD UREA NITROGEN 21 mg/dL (6-20); CALCIUM 8.8 mg/dL (8.5-10.3); CARBON DIOXIDE - CO2 33 mmol/L (21-32); CHLORIDE 99 mmol/L (101-111); CREATININE 0.8 mg/dL (0.6-1.2); GFR - MDRD 92 (>89); GLUCOSE 128 mg/dL (70-100); LIPASE 20 U/L (22-51); SODIUM 143 mmol/L (135-145); TOTAL PROTEIN 7.1 g/dL (6.7-8.2)
--- NOTE | 2019-01-31 22:32 | XRAY Report ---
Reason: chest pain Procedure Date: 01/31/2019 Accession Number: [id number] / [id number] Procedure: XR - Chest 1 View X-Ray CPT Code: 88889 FULL RESULT: EXAM: CHEST RADIOGRAPHY EXAM DATE: 01/31/2019 10:09 PM. CLINICAL HISTORY: Chest pain. COMPARISON: CHEST 2 VIEW 01/21/2019 3:05 PM. TECHNIQUE: 1 view. FINDINGS: Lungs/Pleura: Stable left base opacity with basilar chest tube. Stable mild atelectasis at the right base. Upper lungs clear. No pleural effusion. Mediastinum: Large heart. Other: Degenerative changes of both shoulders noted. IMPRESSION: 1. Stable left pleural effusion with overlying atelectasis/infiltrate, and stable mild right base atelectasis/infiltrate. 2. Large heart without CHF. RADIA
[2019-01-31 22:34] LABS: GLUCOSE, URINE (UA) NEGATIVE (NEGATIVE); KETONES,URINE (UA) NEGATIVE (NEGATIVE); LEUKOCYTE ESTERASE, URINE NEGATIVE (NEGATIVE); NITRITE,URINE NEGATIVE (NEGATIVE); OCCULT BLOOD,URINE LARGE (NEGATIVE); PROTEIN,URINE 100 mg/dL (NEGATIVE); UROBILINOGEN,URINE 2 E.U./dL (NORMAL)
[2019-01-31 22:39] LABS: BILIRUBIN,URINE NEGATIVE (NEGATIVE); CLARITY,URINE CLEAR (CLEAR); ICTOTEST,URINE NEGATIVE
[2019-01-31] MEDS ORDERED: FUROSEMIDE 40 MG/4 ML VIAL IVP STA (22:46)
[2019-01-31 22:49] LABS: BACTERIA,URINE None Seen /HPF (None Seen); MUCUS,URINE Marked Strands; RBC,URINE TNTC /HPF (0-5); SQUAMOUS EPITHELIAL CELL,UR FEW Squamous (<= Few)
[2019-01-31] MEDS ORDERED: ACETAMINOPHEN 325 MG TABLET PO PRN (23:53)
--- NOTE | 2019-02-01 01:05 | HISTORY & PHYSICAL EXAMINATION ---
Chief Complaint - Chief Complaint Chief Complaint: Shortness of breath History of Present Illness - Admitted From Admitted From:: Home - History Obtained From Records Reviewed: Yes History obtained from: Patient, EMR, ER Physician - History of Present Illness HPI Comment/Other: This is a pleasant 88 year old male with a past medical history significant for CHFrEF (35%), Hypertension, recurrent left effusion with catheter in place who presents from home for worsening dyspnea. He states he has been short of breath now or a few days. He has a left lung aspira catheter in place for a prior effusion which he usually drains every week for about 500mL. He has now be unable to drain it for the past two weeks. His most recent attempt drained about 50mL. He tells me the catheter was placed 12 weeks ago at [facility] in [place]. He is not sure what the cause of his effusion is. He is on Torsemide at home and has been taking it twice a day. He reports adequate urine output. He denies fevers, chest pain, abdominal pain. He reports occasional palpitations and orthopnea. He normally wears 2L of oxygen at home. In the emergency department he was to be hypoxic in the low 90's and his oxygen was increased to 4L. A chest x-ray showed a chronic left effusion which is unchanged to prior imaging. Labs were pertinent for a BNP of 1413 which appears to be elevated compared to his baseline in the 500's. History - Past Medical History Cardiovascular: reports: Hypertension, Coronary artery disease, Peripheral Vascular Disease Respiratory: reports: Shortness of breath, Other (Effusion with catheter in place) Endocrine/Autoimmune: reports: None GI: reports: GI bleed, Colon polyps : reports: None HEENT: reports: Chronic hearing loss, Other Psych: reports: Depression Musculoskeletal: reports: Osteoarthritis Derm: reports: Other MRSA Hx?: No - Past Surgical History General: reports: Cholecystectomy Ortho: reports: Knee replacement Cardiovascular: reports: Coronary stent HEENT: reports: Tonsil/Adenoidectomy, Other - Family & Social History Family History Comment/Other: No family history of effusions. Living arrangement: At home Living Situation: With spouse/s.o. Social History Notes: Lives on [facility] with his . Retired over 30 years ago. Was previously in the [employer]. - Substance History Use: Uses substance without health or social issues: Alcohol - POLST Patient has POLST: Yes Meds/Allgy - Home Medications Home Medications: Ambulatory Orders Medication Instructions Recorded Confirmed Aspirin [Aspir 81] 81 mg PO DAILY 02/23/14 01/31/19 Carvedilol [Coreg] 12.5 mg PO BID 02/23/14 01/31/19 Lisinopril 40 mg PO DAILY 02/23/14 01/31/19 Multivitamin [Multivitamins] 1 each PO DAILY 02/23/14 01/31/19 Chlorhexidine Gluconate 15 ml MM DAILY 11/03/18 01/31/19 Hydrocodone/Acetaminophen 0.5 tab PO DAILY PRN 11/03/18 01/31/19 [Hydrocodone-Acetamin 5-325 mg] Potassium Chloride 10 meq PO BID 11/03/18 01/31/19 Trazodone HCl 50 mg PO QPM 11/03/18 11/03/18 Torsemide 20 mg PO BID #60 tablet 11/07/18 01/31/19 - Allergies Allergies/Adverse Reactions: Allergies Allergy/AdvReac Type Severity Reaction Status Date / Time adhesive Allergy Rash Verified 01/31/19 21:27 atorvastatin calcium * Allergy Unknown Verified 01/31/19 21:27 [From Lipitor] bupropion Allergy Unknown Verified 01/31/19 21:27 hydralazine Allergy Unknown Verified 01/31/19 21:27 propoxyphene HCl * Allergy Unknown Verified 01/31/19 21:27 [From Darvon] spironolactone Allergy Unknown Verified 01/31/19 21:27 [From Aldactone] sulfamethoxazole Allergy Unknown Verified 01/31/19 21:27 [From Bactrim] tamsulosin [From Flomax] Allergy Unknown Verified 01/31/19 21:27 trimethoprim [From Bactrim] Allergy Unknown Verified 01/31/19 21:27 Review of Systems - Constitutional Constitutional: reports: Chills. denies: Fatigue, Fever - Cardiovascular Cariovascular: reports: Palpitations, Edema, Exertional dyspnea, Decr. exercise tolerance. denies: Chest pain - Respiratory Respiratory: reports: Orthopnea, SOB at rest - Gastrointestinal Gastrointestinal: denies: Abdominal pain, Nausea, Vomiting - Genitourinary Genitourinary: denies: Dysuria, Frequency, Urgency - Neurological Neurological: denies: General weakness - All Other Systems All Other Systems: reports: Reviewed and negative Prior Level of Functionality: Ambulates with cane. Independent with ADL's. Exam - Vital Signs Reviewed Vital Signs: Yes Vital Signs: Vital Signs x48h Pulse Resp BP Pulse Ox 02/01/19 00:40 81 18 141/78 H 97 01/31/19 23:46 76 26 H 158/113 H 96 01/31/19 23:20 93 16 136/97 H 99 01/31/19 22:56 72 26 H 145/62 H 100 01/31/19 22:26 72 22 146/75 H 98 01/31/19 21:46 73 21 149/69 H 97 01/31/19 21:43 74 29 H 85/75 L 97 01/31/19 21:21 74 25 H 151/81 H 94 - Physical Exam General Appearance: positive: No acute distress, Alert Eyes Bilateral: positive: Normal inspection ENT: positive: ENT inspection nml Respiratory: positive: No respiratory distress, Other (Diminished breath sounds throughout but most prominent in the base of left lung.) Cardiovascular: positive: Regular rate & rhythm, No murmur. negative: Tachycardia Abdomen: positive: Non-tender, Nml bowel sounds, No distention Skin: positive: Other (Venous statsis skin changes over lower extremities) Extremities: positive: Pedal edema (+1 up to the the knees bilaterally) Neurologic/Psychiatric: positive: Oriented x3 Conclusion/Plan - Problem List (1) Acute and chronic respiratory failure with hypoxia Conclusion/Plan: This is likely secondary to exacerbation of his heart failure. His chronic left pleural effusion may also be contributing to his hypoxia although it appears largely unchanged compared to prior imaging which makes me believe this may not be the cause of his dyspnea and hypoxia. He normally wears 2L of oxygen but is requiring 4-5L here. His BNP is elevated at around 1400 and his baseline appears to be around 500. Last echocardiogram showed an EF of 35% with elevated right heart pressures. - Will start him on Lasix 40mg IV every 12 hours - Resume his home heart failure medications - Monitor electrolytes - Will check another BNP prior to discharge (2) Acute on chronic systolic and diastolic heart failure, NYHA class 3 Conclusion/Plan: I believe this is largely driving his hypoxia and dyspnea. As mentioned, his BNP is elevated and he does have edema up to his knees. - IV diuresis - Continue home medications (3) Hypertension Conclusion/Plan: He is hypertensive today. Takes Carvedilol and Lisinopril at home. - Resume home medications (4) Chronic pleural effusion Conclusion/Plan: He has chronic left pleural effusion for which an aspira catheter was placed 12 weeks ago at [facility]. He is concerned regarding decreased output over last few weeks. Chest x-ray revealed stable effusion compared to prior imaging. - Will repeat chest x-ray in the AM - Will likely ask General Surgery to comment regarding the catheter (5) Hx of coronary artery disease Conclusion/Plan: Stable. EKG shows LBBB which is not new. - Continue home aspirin - It appears he is not on a statin due to an allergy (6) Macrocytic anemia Conclusion/Plan: His hemoglobin stable and B12/Folic were checked back in October and within normal limits. - Monitor at this time - Lab Results Fish Bones: 01/31/19 22:00 01/31/19 22:00 - EKG Results EKG Interpreted Independently: Yes EKG Comparison: Unchanged from prior EKG EKG Findings: Sinus rhyhtm with LBBB which is present on prior EKG.
[2019-02-01] MEDS: SODIUM CHLORIDE FLUSH 0.9% 10 ML SYRINGE IVP SCH ×3 (04:04→16:31)
[2019-02-01 05:12] LABS: BASOPHILS % (AUTO) 0.3 %; EOSINOPHILS % (AUTO) 0.5 %; HGB - HEMOGLOBIN 11.3 g/dL (14.0-18.0); LYMPHOCYTES # (AUTO) 0.2 10^3/uL (1.5-3.5); LYMPHOCYTES % (AUTO) 6.1 %; MEAN CORPUSCULAR HEMOGLOBIN 31.7 pg (27.0-31.0); MEAN CORPUSCULAR HGB CONC 29.7 g/dL (32.0-36.0); MEAN CORPUSCULAR VOLUME 106.4 fL (80.0-94.0); MEAN PLATELET VOLUME 9.4 fL (7.4-11.4); MONOCYTES # (AUTO) 0.6 10^3/uL (0.0-1.0); MONOCYTES % (AUTO) 15.2 %; NEUTROPHILS # (AUTO) 2.9 10^3/uL (1.5-6.6); NEUTROPHILS % (AUTO) 77.9 %; PLT - PLATELET COUNT 145 10^3/uL (130-450); RED BLOOD COUNT 3.57 10^6/uL (4.70-6.10); RED CELL DISTRIBUTION WIDTH 13.3 % (12.0-15.0); WHITE BLOOD COUNT 3.7 x10^3/uL (4.8-10.8)
[2019-02-01 05:15] LABS: CALCIUM 8.7 mg/dL (8.5-10.3); CREATININE 0.8 mg/dL (0.6-1.2); MAGNESIUM 2.1 mg/dL (1.7-2.8)
[2019-02-01] MEDS: FUROSEMIDE 40 MG/4 ML VIAL IVP SCH ×2 (05:54→12:54)
--- NOTE | 2019-02-01 06:59 | XRAY Report ---
Reason: Left pleural effusion. Hypoxia. Procedure Date: 02/01/2019 Accession Number: [id number] / [id number] Procedure: XR - Chest 1 View X-Ray CPT Code: 86970 FULL RESULT: EXAM: CHEST RADIOGRAPHY EXAM DATE: 02/01/2019 06:17 AM. CLINICAL HISTORY: Left pleural effusion. Hypoxia. COMPARISON: CHEST 1 VIEW 01/31/2019 9:57 PM. TECHNIQUE: 1 view. FINDINGS: Lungs/Pleura: Pulmonary vascular congestion. Bilateral pulmonary opacities are similar compared with the prior exam. Moderate left and small right pleural effusions. No pneumothorax. Mediastinum: Within exam limitations, heart remains mildly enlarged. Other: Osteopenia. Degenerative changes in the shoulders. IMPRESSION: 1. Persistent cardiomegaly and pulmonary vascular congestion. 2. Pulmonary opacities are approximately unchanged. 3. Moderate left and small right pleural effusions. RADIA
[2019-02-01] MEDS: HEPARIN 5,000 UNIT/ML VIAL SUBQ SCH ×2 (09:24→22:09)
[2019-02-01] MEDS: POTASSIUM CHLORIDE 20 MEQ TABLET PO SCH (09:25)
[2019-02-01] MEDS: CARVEDILOL 12.5 MG TABLET PO SCH ×2 (09:25→22:08)
[2019-02-01] MEDS: LISINOPRIL 20 MG TABLET PO SCH (09:26)
--- NOTE | 2019-02-01 12:17 | CONSULTATION NOTE ---
Referring Provider Name of Referring Provider:: Isatu Zhang Consult Date: 02/01/19 Chief Complaint - Chief Complaint Chief Complaint: Non functioning pleural catheter History of Present Illness - Admitted From Admitted From:: Emergency Department - History Obtained From Records Reviewed: Provider and nurse notes History obtained from: Records and the patient Exam Limitations: None - History of Present Illness HPI Comment/Other: Mr. Ontiveros is a very pleasant gentleman who has multiple medical problems including a recurrent left pleural effusion. He says he a a pleural catheter placed on the left side in [place] about 12 weeks ago. He has been managing it at home but has not been able to get anything out of the catheter for the last week. Prior to this he was removing approximately 500mls per week. He became increasingly short of breath and presented to the ED. He is being managed by the hospitalist service and I have been asked to see him regarding his catheter and its lack of function. History - Past Medical History Cardiovascular: reports: Hypertension, Coronary artery disease, Peripheral Vascular Disease Respiratory: reports: Shortness of breath Neuro: reports: None Endocrine/Autoimmune: reports: None GI: reports: GI bleed, Colon polyps : reports: None HEENT: reports: Chronic hearing loss, Other Psych: reports: Depression Musculoskeletal: reports: Osteoarthritis Derm: reports: Other MRSA Hx?: No - Past Surgical History General: reports: Cholecystectomy Ortho: reports: Knee replacement Cardiovascular: reports: Coronary stent HEENT: reports: Tonsil/Adenoidectomy, Other - Family & Social History Family History Comment/Other: No family history of effusions. Living arrangement: At home Living Situation: With spouse/s.o. Social History Notes: Lives on [facility] with his . Retired over 30 years ago. Was previously in the [employer]. - Substance History Use: Uses substance without health or social issues: Alcohol - POLST Patient has POLST: Yes Meds/Allgy - Home Medications Home Medications: Ambulatory Orders Medication Instructions Recorded Confirmed Aspirin [Aspir 81] 81 mg PO DAILY 02/23/14 01/31/19 Carvedilol [Coreg] 25 mg PO BID 02/23/14 02/01/19 Lisinopril 40 mg PO DAILY 02/23/14 01/31/19 Multivitamin [Multivitamins] 1 each PO DAILY 02/23/14 01/31/19 Chlorhexidine Gluconate 15 ml MM DAILY 11/03/18 01/31/19 Potassium Chloride 10 meq PO BID 11/03/18 01/31/19 Trazodone HCl 50 mg PO QPM 11/03/18 02/01/19 Torsemide 20 mg PO BID #60 tablet 11/07/18 01/31/19 - Allergies Allergies/Adverse Reactions: Allergies Allergy/AdvReac Type Severity Reaction Status Date / Time adhesive Allergy Rash Verified 01/31/19 21:27 atorvastatin calcium * Allergy Unknown Verified 01/31/19 21:27 [From Lipitor] bupropion Allergy Unknown Verified 01/31/19 21:27 hydralazine Allergy Unknown Verified 01/31/19 21:27 propoxyphene HCl * Allergy Unknown Verified 01/31/19 21:27 [From Darvon] spironolactone Allergy Unknown Verified 01/31/19 21:27 [From Aldactone] sulfamethoxazole Allergy Unknown Verified 01/31/19 21:27 [From Bactrim] tamsulosin [From Flomax] Allergy Unknown Verified 01/31/19 21:27 trimethoprim [From Bactrim] Allergy Unknown Verified 01/31/19 21:27 Exam - Vital Signs Reviewed Vital Signs: Yes Vital Signs: Vital Signs x48h Temp Pulse Pulse Resp BP Pulse Ox 02/01/19 09:28 94 02/01/19 08:38 36.4 C L 88 141/77 H 88 L 02/01/19 05:47 36.5 C 74 16 99 02/01/19 05:24 36.5 C 74 16 143/71 H 99 - Physical Exam General Appearance: positive: No acute distress, Lethargic Respiratory: positive: Other (On the left side at approximately the sixth intercostal space there is a pleural drain consistent with a Pleurex catheter or similar. Negative pressure was applied to the catheter using a 60 cc syringe but without success. The catheter was stripped but also was not helpfull. This is a cuffed catheter and therefore could not be repositioned.) Conclusion/Plan - Diagnosis Diagnosis: Non functional pleural drain. - Plan Plan: Unfortunately, these catheters have a limited lifetime and this one will need to be replaced. The become clogged over time with fibrinous exudate. I would recommend eventual replacement of the tube as it is unsalvagable. Even if TPA is used, the catheter becomes involved in the peel over the pleura and declotting has very limited facility. - Lab Results Fish Bones: 02/01/19 04:50 02/01/19 04:50 - Diagnostic Imaging Results Diagnostic Imaging Results: positive: Final report reviewed Diagnostic Imaging Results Comments: Catheter in place over the left smiley diaphragm
--- NOTE | 2019-02-01 13:08 | PROVIDER PROGRESS NOTE ---
Subjective - Prog Note Date Prog Note Date: 02/01/19 Prog Note Time: 13:14 - Subjective Pt reports feeling: No change Subjective: This pleasant gentleman has an ejection fraction of 35%. In a way to control his pleural effusions he had a pleural effusion catheter placed in the past. It is not working. It is not draining this last week. He was brought in with acute on chronic congestive heart failure. In spite of this overnight stay, diuresis, he still significantly short of breath. He is short of breath at rest is speaking to me, can barely hold his head up because he is so tired. He also tells me that he is in pain. He has been having epigastric pain that radiates to either side of his belly. Seems to wrap around at times. It comes and goes. It would last for 20 to 30 minutes at a time. Usually starts with eating and continues for a while after. The color of his urine has not changed. The color of his stool has not changed. He denies fever, chills. This is been going on for about a week, he is just not sure. Current Medications - Current Medications Current Medications: Active Medications Acetaminophen (Tylenol) 650 mg PO Q6HR PRN PRN Reason: Pain 1 to 4 Carvedilol (Coreg) 12.5 mg PO BID [facility] Last Admin: 02/01/19 09:25 Dose: 12.5 mg Furosemide (Lasix Inj 40 Mg Vial) 40 mg IVP BIDDIURETIC [facility] Last Admin: 02/01/19 12:54 Dose: 40 mg Heparin Sodium (Porcine) () 5,000 unit SUBQ BID [facility] Last Admin: 02/01/19 09:24 Dose: 5,000 unit Lisinopril (Zestril) 40 mg PO DAILY [facility] Last Admin: 02/01/19 09:26 Dose: 40 mg Potassium Chloride (K-Dur) 20 meq PO DAILYWM [facility] Last Admin: 02/01/19 09:25 Dose: 20 meq Sodium Chloride (Normal Saline Flush 0.9%) 10 ml IVP PRN PRN PRN Reason: NEEDED PER PROVIDER ORDERS Sodium Chloride (Normal Saline Flush 0.9%) 10 ml IVP 0100,0900,1700 [facility] Last Admin: 02/01/19 09:26 Dose: 10 ml Zinc Oxide (Desitin) 1 gm TOP PRN PRN PRN Reason: Skin Care Aspirin [Aspir 81] 81 mg PO DAILY 02/23/14 Carvedilol [Coreg] 25 mg PO BID 02/23/14 Lisinopril 40 mg PO DAILY 02/23/14 Multivitamin [Multivitamins] 1 each PO DAILY 02/23/14 Chlorhexidine Gluconate 15 ml MM DAILY 11/03/18 Potassium Chloride 10 meq PO BID 11/03/18 Trazodone HCl 50 mg PO QPM 11/03/18 Objective - Vital Signs/Intake & Output Reviewed Vital Signs: Yes Vital Signs: Vital Signs x48h Temp Pulse Pulse Resp BP Pulse Ox 02/01/19 09:28 94 02/01/19 08:38 36.4 C L 88 141/77 H 88 L 02/01/19 05:47 36.5 C 74 16 99 02/01/19 05:24 36.5 C 74 16 143/71 H 99 Intake & Output: Intake & Output 01/29/19 01/30/19 01/31/19 02/01/19 23:59 23:59 23:59 23:59 Intake Total 15 Output Total 1125 450 Balance -1110 -450 - Objective General Appearance: positive: Alert, Moderate distress (Short of breath at rest, exacerbated by speaking. Does not have the neck strength to hold his head upright. It is hanging forward as he tries to look at me from underneath his eyebrows.) Eyes Bilateral: positive: PERRL, EOMI Neck: negative: No JVD, Stiff neck, Carotid bruit Respiratory: positive: Rales (Both bases as well as slight egophony left lung base.), Other (Panting, shallow respiration. Son, who is at the bedside, says this is worse than usual.) Cardiovascular: positive: Regular rate & rhythm, Systolic murmur, Gallop/S3. negative: Friction rub Abdomen: positive: Non-tender, No organomegaly, Nml bowel sounds, No distention Skin: positive: Warm, Dry Extremities: positive: Full ROM, Pedal edema Neurologic/Psychiatric: positive: Oriented x3, CN's nml (2-12) (Slightly deaf), Motor nml, Weakness - Lab Results Fish Bones: 02/01/19 04:50 02/01/19 04:50 Other Labs: Lab Results x24hrs 02/01/19 02/01/19 02/01/19 Range/Units 05:06 04:50 04:50 WBC 3.7 L (4.8-10.8) x10^3/uL RBC 3.57 L (4.70-6.10) 10^6/uL Hgb 11.3 L (14.0-18.0) g/dL Hct 38.0 L (42.0-52.0) % MCV 106.4 H (80.0-94.0) fL MCH 31.7 H (27.0-31.0) pg MCHC 29.7 L (32.0-36.0) g/dL RDW 13.3 (12.0-15.0) % Plt Count 145 (130-450) 10^3/uL MPV 9.4 (7.4-11.4) fL Neut # (Auto) 2.9 (1.5-6.6) 10^3/uL Lymph # (Auto) 0.2 L (1.5-3.5) 10^3/uL [place] # (Auto) 0.6 (0.0-1.0) 10^3/uL Eos # (Auto) 0.0 (0.0-0.7) 10^3/uL Baso # (Auto) 0.0 (0.0-0.1) 10^3/uL Absolute Nucleated RBC 0.00 x10^3/uL Nucleated RBC % 0.0 /100WBC Sodium 145 (135-145) mmol/L Potassium 4.3 (3.5-5.0) mmol/L Chloride 99 L (101-111) mmol/L Carbon Dioxide 35 H (21-32) mmol/L Anion Gap 11.0 (6-13) BUN 20 (6-20) mg/dL Creatinine 0.8 (0.6-1.2) mg/dL Estimated GFR (MDRD) 92 (>89) Glucose 132 H (70-100) mg/dL Calcium 8.7 (8.5-10.3) mg/dL Phosphorus 3.8 (2.5-4.6) mg/dL Magnesium 2.1 (1.7-2.8) mg/dL Total Bilirubin (0.2-1.0) mg/dL AST (10-42) IU/L ALT (10-60) IU/L Alkaline Phosphatase (42-121) IU/L Troponin I (<0.49) ng/mL B-Natriuretic Peptide (5-100) pg/mL Total Protein (6.7-8.2) g/dL Albumin (3.2-5.5) g/dL Globulin (2.1-4.2) g/dL Albumin/Globulin Ratio (1.0-2.2) Lipase (22-51) U/L Urine Color Urine Clarity (CLEAR) Urine pH (5.0-7.5) PH Ur Specific [place] (1.002-1.030) Urine Protein (NEGATIVE) mg/dL Urine Glucose (UA) (NEGATIVE) mg/dL Urine Ketones (NEGATIVE) mg/dL Urine Occult Blood (NEGATIVE) Urine Nitrite (NEGATIVE) Urine Bilirubin (NEGATIVE) Urine Urobilinogen (NORMAL) E.U./dL Ur Leukocyte Esterase (NEGATIVE) Urine RBC (0-5) /HPF Urine WBC (0-3) /HPF Ur Squamous Epith Cells (<= Few) Urine Bacteria (None Seen) /HPF Urine Mucus Ur Microscopic Review Urine Culture Comments 02/01/19 01/31/19 01/31/19 Range/Units 04:50 22:25 22:00 WBC (4.8-10.8) x10^3/uL RBC (4.70-6.10) 10^6/uL Hgb (14.0-18.0) g/dL Hct (42.0-52.0) % MCV (80.0-94.0) fL MCH (27.0-31.0) pg MCHC (32.0-36.0) g/dL RDW (12.0-15.0) % Plt Count (130-450) 10^3/uL MPV (7.4-11.4) fL Neut # (Auto) (1.5-6.6) 10^3/uL Lymph # (Auto) (1.5-3.5) 10^3/uL [place] # (Auto) (0.0-1.0) 10^3/uL Eos # (Auto) (0.0-0.7) 10^3/uL Baso # (Auto) (0.0-0.1) 10^3/uL Absolute Nucleated RBC x10^3/uL Nucleated RBC % /100WBC Sodium (135-145) mmol/L Potassium (3.5-5.0) mmol/L Chloride (101-111) mmol/L Carbon Dioxide (21-32) mmol/L Anion Gap (6-13) BUN (6-20) mg/dL Creatinine (0.6-1.2) mg/dL Estimated GFR (MDRD) (>89) Glucose (70-100) mg/dL Calcium (8.5-10.3) mg/dL Phosphorus (2.5-4.6) mg/dL Magnesium (1.7-2.8) mg/dL Total Bilirubin (0.2-1.0) mg/dL AST (10-42) IU/L ALT (10-60) IU/L Alkaline Phosphatase (42-121) IU/L Troponin I 0.06 0.05 (<0.49) ng/mL B-Natriuretic Peptide (5-100) pg/mL Total Protein (6.7-8.2) g/dL Albumin (3.2-5.5) g/dL Globulin (2.1-4.2) g/dL Albumin/Globulin Ratio (1.0-2.2) Lipase (22-51) U/L Urine Color DARK YELLOW Urine Clarity CLEAR (CLEAR) Urine pH 6.0 (5.0-7.5) PH Ur Specific [place] 1.020 (1.002-1.030) Urine Protein 100 H (NEGATIVE) mg/dL Urine Glucose (UA) NEGATIVE (NEGATIVE) mg/dL Urine Ketones NEGATIVE (NEGATIVE) mg/dL Urine Occult Blood LARGE H (NEGATIVE) Urine Nitrite NEGATIVE (NEGATIVE) Urine Bilirubin NEGATIVE (NEGATIVE) Urine Urobilinogen 2 H (NORMAL) E.U./dL Ur Leukocyte Esterase NEGATIVE (NEGATIVE) Urine RBC TNTC H (0-5) /HPF Urine WBC 0-3 (0-3) /HPF Ur Squamous Epith Cells FEW Squamous (<= Few) Urine Bacteria None Seen (None Seen) /HPF Urine Mucus Marked Strands Ur Microscopic Review INDICATED Urine Culture Comments NOT INDICATED 01/31/19 01/31/19 01/31/19 Range/Units 22:00 22:00 22:00 WBC 4.8 (4.8-10.8) x10^3/uL RBC 3.31 L (4.70-6.10) 10^6/uL Hgb 10.4 L (14.0-18.0) g/dL Hct 35.5 L (42.0-52.0) % MCV 107.3 H (80.0-94.0) fL MCH 31.4 H (27.0-31.0) pg MCHC 29.3 L (32.0-36.0) g/dL RDW 13.5 (12.0-15.0) % Plt Count 137 (130-450) 10^3/uL MPV 10.2 (7.4-11.4) fL Neut # (Auto) 3.9 (1.5-6.6) 10^3/uL Lymph # (Auto) 0.3 L (1.5-3.5) 10^3/uL [place] # (Auto) 0.6 (0.0-1.0) 10^3/uL Eos # (Auto) 0.0 (0.0-0.7) 10^3/uL Baso # (Auto) 0.0 (0.0-0.1) 10^3/uL Absolute Nucleated RBC 0.00 x10^3/uL Nucleated RBC % 0.0 /100WBC Sodium 143 (135-145) mmol/L Potassium 4.4 (3.5-5.0) mmol/L Chloride 99 L (101-111) mmol/L Carbon Dioxide 33 H (21-32) mmol/L Anion Gap 11.0 (6-13) BUN 21 H (6-20) mg/dL Creatinine 0.8 (0.6-1.2) mg/dL Estimated GFR (MDRD) 92 (>89) Glucose 128 H (70-100) mg/dL Calcium 8.8 (8.5-10.3) mg/dL Phosphorus (2.5-4.6) mg/dL Magnesium (1.7-2.8) mg/dL Total Bilirubin 1.1 H (0.2-1.0) mg/dL AST 12 (10-42) IU/L ALT < 10 L (10-60) IU/L Alkaline Phosphatase 74 (42-121) IU/L Troponin I (<0.49) ng/mL B-Natriuretic Peptide 1413 H (5-100) pg/mL Total Protein 7.1 (6.7-8.2) g/dL Albumin 3.2 (3.2-5.5) g/dL Globulin 3.9 (2.1-4.2) g/dL Albumin/Globulin Ratio 0.8 L (1.0-2.2) Lipase 20 L (22-51) U/L Urine Color Urine Clarity (CLEAR) Urine pH (5.0-7.5) PH Ur Specific [place] (1.002-1.030) Urine Protein (NEGATIVE) mg/dL Urine Glucose (UA) (NEGATIVE) mg/dL Urine Ketones (NEGATIVE) mg/dL Urine Occult Blood (NEGATIVE) Urine Nitrite (NEGATIVE) Urine Bilirubin (NEGATIVE) Urine Urobilinogen (NORMAL) E.U./dL Ur Leukocyte Esterase (NEGATIVE) Urine RBC (0-5) /HPF Urine WBC (0-3) /HPF Ur Squamous Epith Cells (<= Few) Urine Bacteria (None Seen) /HPF Urine Mucus Ur Microscopic Review Urine Culture Comments ABX Reporting Has patient been on IV antibiotics over the past 48 hours?: No Assessment/Plan - Problem List (1) Acute and chronic respiratory failure with hypoxia Impression: This is likely secondary to exacerbation of his heart failure. His chronic left pleural effusion may also be contributing to his hypoxia although it appears largely unchanged compared to prior imaging which makes me believe this may not be the cause of his dyspnea and hypoxia. He normally wears 2L of oxygen but is requiring 4-5L here. His BNP is elevated at around 1400 and his baseline appears to be around 500. Last echocardiogram showed an EF of 35% with elevated right heart pressures. - Will start him on Lasix 40mg IV every 12 hours - Resume his home heart failure medications - Monitor electrolytes - Will check another BNP prior to discharge (2) Acute on chronic systolic and diastolic heart failure, NYHA class 3 Conclusion/Plan: This is largely driving his hypoxia and dyspnea. As mentioned, his BNP is elevated and he does have edema up to his knees. While he has been able to urinate and has had good diuresis, he is still very short of breath. This is at rest. He is such a michael gentleman. He says that his fatigue and dyspnea is so severe when he tries to get up and urinate for all of this, that he is exhausted. He is requesting a Tomas. - IV diuresis - Continue home medications - Tomas catheter - Change to inpatient status from observation status (3) Hypertension Conclusion/Plan: He is hypertensive today. Takes Carvedilol and Lisinopril at home. - Resume home medications (4) Chronic pleural effusion Conclusion/Plan: He has chronic left pleural effusion for which an aspira catheter was placed 12 weeks ago at [facility]. He is concerned regarding decreased output over last few weeks. Chest x-ray revealed stable effusion compared to prior imaging.Repeat chest x-ray this morning shows persistent cardiomegaly and pulmonary vascular congestion. Pulmonary opacities are without change. Moderate left and small right pleural effusion. He has been seen by general surgery. We appreciate the consultation. His chest tube will most likely need to come out because it is plugged with fibrinous exudate. -Thoracentesis when interventional radiology returns to the facility. Radiology has not been present for Sunday, , Sunday. They are not present on the weekends. We may be able to get a thoracentesis on Sunday. (5) Hx of coronary artery disease Conclusion/Plan: Stable. EKG shows LBBB which is not new. - Continue home aspirin - It appears he is not on a statin due to an allergy (6) Macrocytic anemia Conclusion/Plan: His hemoglobin stable and B12/Folic were checked back in October and within normal limits. - Monitor at this time
[2019-02-01] MEDS: COD LIVER OIL/ZINC OXIDE 113 GM TUBE TOP PRN ×2 (19:11→22:15)
[2019-02-02] MEDS: SODIUM CHLORIDE FLUSH 0.9% 10 ML SYRINGE IVP SCH ×3 (00:21→15:59)
[2019-02-02] MEDS: COD LIVER OIL/ZINC OXIDE 113 GM TUBE TOP PRN (00:27)
[2019-02-02] MEDS: FUROSEMIDE 40 MG/4 ML VIAL IVP SCH ×2 (06:04→14:46)
[2019-02-02 06:11] LABS: CALCIUM 8.7 mg/dL (8.5-10.3); CREATININE 0.9 mg/dL (0.6-1.2); MAGNESIUM 2.1 mg/dL (1.7-2.8)
[2019-02-02 06:13] LABS: EOSINOPHILS % (AUTO) 0.6 %; HGB - HEMOGLOBIN 11.5 g/dL (14.0-18.0); LYMPHOCYTES # (AUTO) 0.2 10^3/uL (1.5-3.5); LYMPHOCYTES % (AUTO) 4.7 %; MEAN CORPUSCULAR HEMOGLOBIN 32.7 pg (27.0-31.0); MEAN CORPUSCULAR HGB CONC 29.7 g/dL (32.0-36.0); MEAN CORPUSCULAR VOLUME 109.9 fL (80.0-94.0); MEAN PLATELET VOLUME 9.6 fL (7.4-11.4); MONOCYTES # (AUTO) 0.7 10^3/uL (0.0-1.0); MONOCYTES % (AUTO) 14.4 %; NEUTROPHILS # (AUTO) 3.9 10^3/uL (1.5-6.6); NEUTROPHILS % (AUTO) 79.9 %; PLT - PLATELET COUNT 135 10^3/uL (130-450); RED BLOOD COUNT 3.52 10^6/uL (4.70-6.10); RED CELL DISTRIBUTION WIDTH 13.3 % (12.0-15.0); WHITE BLOOD COUNT 4.9 x10^3/uL (4.8-10.8)
[2019-02-02] MEDS: SODIUM CHLORIDE FLUSH 0.9% 10 ML SYRINGE IVP PRN ×2 (06:14→14:46)
[2019-02-02 06:50] LABS: ABG HCO3 44.8 mmol/L (22.0-26.0); ABG PO2 82 mmHg (80-100)
[2019-02-02 06:51] LABS: ABG OXYGEN SATURATION 95 % (94-98); ALLEN TEST POSITIVE
[2019-02-02 06:52] LABS: ABG PCO2 133 mmHg (34-45); ABG PH 7.15 (7.35-7.45); ABG TCO2 48.9 MMOL/L (21.0-29.0)
[2019-02-02] MEDS ORDERED: SODIUM CHLORIDE 0.9% 500 ML IV ONE (08:20)
[2019-02-02] MEDS: HEPARIN 5,000 UNIT/ML VIAL SUBQ SCH ×2 (08:23→21:35)
[2019-02-02 09:02] LABS: ABG HCO3 40.5 mmol/L (22.0-26.0); ABG OXYGEN SATURATION 97 % (94-98); ABG PO2 86 mmHg (80-100); ALLEN TEST POSITIVE
[2019-02-02 09:07] LABS: ABG PCO2 84 mmHg (34-45)
[2019-02-02] MEDS: CARVEDILOL 12.5 MG TABLET PO SCH ×2 (09:41→21:35)
[2019-02-02] MEDS: LISINOPRIL 20 MG TABLET PO SCH (09:41)
[2019-02-02] MEDS: POTASSIUM CHLORIDE 20 MEQ TABLET PO SCH (09:41)
--- NOTE | 2019-02-02 11:19 | PROVIDER PROGRESS NOTE ---
<Maxi Short - Last Filed: 02/02/19 12:46> Subjective - Prog Note Date Prog Note Date: 02/02/19 Prog Note Time: 11:12 - Subjective Pt reports feeling: Worse Subjective: Mr. Ontiveros was transferred to ICU this am for worsening hypercapnic respiratory acidosis with severe dyspnea requiring BiPAP. Early this morning he was somnolent and responding minimally, only with non-verbals. Patient's and son are now at bedside and have brought in advanced directives that will be scanned into the medical record. After a couple of hours on BiPAP patient's alertness has been increasing. He is agitated by BiPAP mask and repeatedly making attempts to remove it, but is redirectable to leave mask on with verbal direction. Repeat ABG this AM indicates improvement on BiPAP. Patient's states that he looks more lively today than yesterday and has better color. This afternoon, Mr. Ontiveros was trialed off of BiPAP and on NC which he tolerated for several minutes while carrying out a conversation with me, satting 94-95% without reported dyspnea. Current Medications - Current Medications Current Medications: Active Medications Acetaminophen (Tylenol) 650 mg PO Q6HR PRN PRN Reason: Pain 1 to 4 Carvedilol (Coreg) 12.5 mg PO BID [facility] Last Admin: 02/02/19 09:41 Dose: Not Given Furosemide (Lasix Inj 40 Mg Vial) 40 mg IVP BIDDIURETIC [facility] Last Admin: 02/02/19 06:04 Dose: 40 mg Heparin Sodium (Porcine) () 5,000 unit SUBQ BID [facility] Last Admin: 02/02/19 08:23 Dose: 5,000 unit Lisinopril (Zestril) 40 mg PO DAILY [facility] Last Admin: 02/02/19 09:41 Dose: Not Given Potassium Chloride (K-Dur) 20 meq PO DAILYWM [facility] Last Admin: 02/02/19 09:41 Dose: Not Given Sodium Chloride (Normal Saline Flush 0.9%) 10 ml IVP PRN PRN PRN Reason: NEEDED PER PROVIDER ORDERS Last Admin: 02/02/19 06:14 Dose: 10 ml Sodium Chloride (Normal Saline Flush 0.9%) 10 ml IVP 0100,0900,1700 [facility] Last Admin: 02/02/19 08:24 Dose: 10 ml Zinc Oxide (Desitin) 1 gm TOP PRN PRN PRN Reason: Skin Care Last Admin: 02/02/19 00:27 Dose: 1 applic Aspirin [Aspir 81] 81 mg PO DAILY 02/23/14 Carvedilol [Coreg] 25 mg PO BID 02/23/14 Lisinopril 40 mg PO DAILY 02/23/14 Multivitamin [Multivitamins] 1 each PO DAILY 02/23/14 Chlorhexidine Gluconate 15 ml MM DAILY 11/03/18 Potassium Chloride 10 meq PO BID 11/03/18 Trazodone HCl 50 mg PO QPM 11/03/18 Objective - Vital Signs/Intake & Output Reviewed Vital Signs: Yes - Objective General Appearance: positive: Alert, Moderate distress, Lethargic, Other (This morning when patient was seen he was responsive to physical touch but not engaging in conversation or responding verbally. Remarkable change this afternoon where patient is seen in bed, eyes open, alert and carrying on conversation with me, answering all questions appropriately.) Eyes Bilateral: positive: PERRL, EOMI, No lid inflammation, Conjunctivae nml, No scleral icterus ENT: positive: No signs of dehydration Neck: positive: Thyroid nml, No JVD, Trachea midline, Stiff neck, Carotid bruit, Other (Unable to lay flat due to muscular stiffness/contracture-baseline for several years per patient's ) Respiratory: positive: Other (minimal chest wall movement early this am, improvement with BiPAP) Cardiovascular: positive: Regular rate & rhythm, Bradycardia, Systolic murmur, Gallop/S3, Other (hypotension this am requiring 500cc fluid bolus-watch closely due to acute on chronic CHF) Peripheral Pulses: 2+ Radial (L) Abdomen: positive: No organomegaly, Tenderness, Other (hypoactive bowel tones; mild tenderness to lower abdomen L side > R) Skin: positive: Warm, Dry, Other (bruising to bilet UEs) Extremities: positive: Non-tender, Full ROM, Nml appearance, No pedal edema, Other (edema up to bilat knees completely resolved) Neurologic/Psychiatric: positive: Oriented x3, CN's nml (2-12), Mood/affect nml, Weakness, Other (this am was not alert and oriented, only responsive to physical stimulation. This afternoon he is sitting up, alert and oriented and appropriate. Slightly NOATAK. Falls asleep easily, but easily arousable by voice.) - Lab Results Fish Bones: 02/02/19 05:15 02/02/19 05:15 Assessment/Plan - Problem List (1) Acute and chronic respiratory failure with hypoxia Impression: Likely secondary to exacerbation of his heart failure. Chronic Left plueral effusion may also be contributing to hypoxia, though this appears largely unchanged compared to prior imaging so likely not the causative factor for dyspnea and hypoxia at this time. Previously requiring 4-5L NC until early this AM when he required transition to BiPAP. He is currently receiving IV lasix. Plan: Continue IV Lasix 40mg BID Continue home HF medications Remain on BiPAP-follow up with patient and family after conversations of patie nt's wishes as far as supportive care Trend ABGs RT following (2) Acute on chronic systolic and diastolic heart failure, NYHA class 3 Impression: Largely the cause of current hypoxia and dyspnea. BNP is elevated to 1413. Last echo (date?) shows EF of 35%. Previous bilat LE edema up to the knees is resolved today. Good urine output, ~45ml/hr. He remains short of breath, at rest, better on BiPAP. Tomas catheter was placed due to severe dyspnea and inability to get up to urinate due to severe dyspnea and for strict output monitoring. Plan: -IV diuretics as mentioned above -Continue carvedilol, lisinopril per home dosing -Tomas catheter for strict I&O monitoring (3) Hx of coronary artery disease Impression: Currently stable. EKG this AM shows stable LBBB, not new for this patient. Troponin stable 0.05 and 0.06 this am. Plan: -Continue home aspirin -Patient noted not to be on statin therapy due to allergy. -Complete 3rd troponin level this afternoon, then monitor with any signs/symptoms or clinical deterioration (4) Chronic pleural effusion Impression: Chronic left pleural effusion with Aspira catheter in place (placed 12 weeks ago at [facility]). There is concern over decreased output over last couple of weeks. Chest XR revealed stable effusion compared to prior imaging with cardiomegaly and pulmonary vascular congestion. Pulmonary opacities are without change. Moderate left and small right effusions. General surgery has consulted, tube appears to be lining the base of lung along diaphragm and likely clogged by fibrinous exudate. Drain site is dressed with gauze, clean dry and intact underneath, no tenderness, redness or signs of infection at site. Plan: -IR to consult upon return to facility (was not present Sun-Sun and is not in house over weekends), would like thoracentesis on Sunday (5) Hypertension Impression: Baseline HTN managed with home lisinopril and carvedilol in setting of CHF. Unfo rtunately had an acute episode of hypotension with SBP in 80s upon initiating BiPAP. Was treated with a 500cc fluid bolus and pressures returned to low 100s systolic. Plan: -Continue to monitor in tenuous situation (6) Macrocytic anemia Impression: Hct 38.7, MCV 109.9 today. Chronic, stable. B12 and folate checked in October and . Plan: -Continue to monitor <Isatu Zhang - Last Filed: 02/02/19 17:45> Subjective - Subjective Subjective: no change in subjective. and son at the bedside and son would like to really discuss progressing to hospice care. I spoke to his brother, son, daughter, , grandchild. Long explanation of what left sided heart fialure means, what pleural effusion is, why we diurese or do thoracentesis. Patient participated for the most part. He really improved from morning to afternoon w BiPAP Objective - Vital Signs/Intake & Output Vital Signs: Vital Signs Temp Pulse Pulse Pulse Resp BP Pulse Ox 02/02/19 11:00 66 02/02/19 10:10 58 L 02/02/19 10:00 65 19 107/57 L 02/02/19 09:00 57 L 20 104/51 L 02/02/19 08:30 36.4 C L 60 20 89/47 L 97 02/02/19 07:30 94/43 L 02/02/19 07:15 66 Intake & Output: Intake & Output 01/30/19 01/31/19 02/01/19 02/02/19 23:59 23:59 23:59 23:59 Intake Total 15 1300 980 Output Total 1125 1800 555 Balance -1110 -500 425 - Objective Comments/Other: patient seen and examined. Obtunded at first thing this am, improved to be alert and oriented by early afternoon. No JVD seen Lungs w crackles at bases. This am with incr resp effort, by the afternoon, able to speak to me in complete sentences. abd benign legs with much, much improved edema - Lab Results Fish Bones: 02/02/19 05:15 02/02/19 05:15 Other Labs: Lab Results x24hrs 02/02/19 02/02/19 02/02/19 Range/Units 08:55 08:45 06:45 WBC (4.8-10.8) x10^3/uL RBC (4.70-6.10) 10^6/uL Hgb (14.0-18.0) g/dL Hct (42.0-52.0) % MCV (80.0-94.0) fL MCH (27.0-31.0) pg MCHC (32.0-36.0) g/dL RDW (12.0-15.0) % Plt Count (130-450) 10^3/uL MPV (7.4-11.4) fL Neut # (Auto) (1.5-6.6) 10^3/uL Lymph # (Auto) (1.5-3.5) 10^3/uL Barron # (Auto) (0.0-1.0) 10^3/uL Eos # (Auto) (0.0-0.7) 10^3/uL Baso # (Auto) (0.0-0.1) 10^3/uL Absolute Nucleated RBC x10^3/uL Nucleated RBC % /100WBC Bld Gas Analysis Time 08:55 0652 Sample Site LEFT RADIAL LEFT RADIAL ABG pH 7.30 L 7.15 L* (7.35-7.45) ABG pCO2 84 H* 133 H* (34-45) mmHg ABG pO2 86 82 (80-100) mmHg ABG HCO3 40.5 H 44.8 H (22.0-26.0) mmol/L ABG Total CO2 43.0 H* 48.9 H* (21.0-29.0) MMOL/L ABG O2 Saturation 97 95 (94-98) % ABG Base Excess 11.0 H 11.0 H (-2.0-3.0) mmol/L Jez Test POSITIVE POSITIVE O2 Delivery Device BiPAP NASAL CANNULA O2 Liters/Min 3.00 LPM FiO2 35.00 EPAP 6 cmH2O IPAP 18 cmH2O Sodium (135-145) mmol/L Potassium (3.5-5.0) mmol/L Chloride (101-111) mmol/L Carbon Dioxide (21-32) mmol/L Anion Gap (6-13) BUN (6-20) mg/dL Creatinine (0.6-1.2) mg/dL Estimated GFR (MDRD) (>89) Glucose (70-100) mg/dL Calcium (8.5-10.3) mg/dL Magnesium (1.7-2.8) mg/dL Nasal Screen MRSA (PCR) NEGATIVE (NEGATIVE) 02/02/19 02/02/19 Range/Units 05:15 05:15 WBC 4.9 (4.8-10.8) x10^3/uL RBC 3.52 L (4.70-6.10) 10^6/uL Hgb 11.5 L (14.0-18.0) g/dL Hct 38.7 L (42.0-52.0) % MCV 109.9 H (80.0-94.0) fL MCH 32.7 H (27.0-31.0) pg MCHC 29.7 L (32.0-36.0) g/dL RDW 13.3 (12.0-15.0) % Plt Count 135 (130-450) 10^3/uL MPV 9.6 (7.4-11.4) fL Neut # (Auto) 3.9 (1.5-6.6) 10^3/uL Lymph # (Auto) 0.2 L (1.5-3.5) 10^3/uL Barron # (Auto) 0.7 (0.0-1.0) 10^3/uL Eos # (Auto) 0.0 (0.0-0.7) 10^3/uL Baso # (Auto) 0.0 (0.0-0.1) 10^3/uL Absolute Nucleated RBC 0.00 x10^3/uL Nucleated RBC % 0.0 /100WBC Bld Gas Analysis Time Sample Site ABG pH (7.35-7.45) ABG pCO2 (34-45) mmHg ABG pO2 (80-100) mmHg ABG HCO3 (22.0-26.0) mmol/L ABG Total CO2 (21.0-29.0) MMOL/L ABG O2 Saturation (94-98) % ABG Base Excess (-2.0-3.0) mmol/L Jez Test O2 Delivery Device O2 Liters/Min LPM FiO2 EPAP cmH2O IPAP cmH2O Sodium 146 H (135-145) mmol/L Potassium 4.8 (3.5-5.0) mmol/L Chloride 97 L (101-111) mmol/L Carbon Dioxide 39 H* (21-32) mmol/L Anion Gap 10.0 (6-13) BUN 20 (6-20) mg/dL Creatinine 0.9 (0.6-1.2) mg/dL Estimated GFR (MDRD) 80 L (>89) Glucose 126 H (70-100) mg/dL Calcium 8.7 (8.5-10.3) mg/dL Magnesium 2.1 (1.7-2.8) mg/dL Nasal Screen MRSA (PCR) (NEGATIVE) Assessment/Plan - Problem List (1) Acute and chronic respiratory failure with hypoxia Impression: He also had hypercapnea. I think most of it was from RHODA and not his CHF. His acute systolic on chronic CHF has improved with diuresis but still with pleural effusion. Patient change from observation to inpatient status yesterday. Attestation of the patient will be evaluated for discharge within 96 hours. continue diuresis as ordered. Continue Bipap or CPAP prn. (2) Pleural effusion Impression: Dr. Allen saw him yesterday. Tube is plugged. Needs another thoracentesis but no radiology available. Will try for tomorrow and see if tube can be removed here. (3) Epigastric abdominal pain Impression: made worse by eating. present yesterday, but no longer. able to eat. labs w/o obstrucitve jaundice. US ordered and it has been done but reading pending. will review once ready. (4) RHODA on CPAP Impression: the machine was brought in last night, and didn't work for him. as night progressed, more and more obtunded with this am had long apneic episodes w obtundation. ABG showed hypercapnea. Responded to BiPap. Will make sure CPAP or BiPAP for tonight. (5) End stage congestive heart failure Impression: his family is asking more and more about what the end will look like. and son feel he could go to hospice but daughter wonders if there is more time. I explained diff b/t palliative care and hospice. They want to talk to Dr Moser (PCP) and then maybe he can get Palliative Care involved with slow transition to hospice when the time comes.
--- NOTE | 2019-02-02 17:43 | Ultrasound Report ---
Reason: epigasric pain w eating Procedure Date: 02/02/2019 Accession Number: [id number] / [id number] Procedure: US - Abdomen Complete CPT Code: FULL RESULT: EXAM: ABDOMEN ULTRASOUND EXAM DATE: 02/02/2019 02:34 PM. CLINICAL HISTORY: Epigasric pain w eating. COMPARISON: None. TECHNIQUE: Real-time scanning was performed with static images obtained. FINDINGS: Liver: Normal in size , mildly coarse and increased echotexture. Most consistent with hepatic cirrhosis.. 18.3 cm. Multiple anechoic fluid containing cysts seen. Microcalcifications noted, likely related to prior granulomatous disease exposure. Main portal vein flow: Hepatopetal. Gallbladder: Status post cholecystectomy Biliary System: Common bile duct measures 7 mm. Pancreas: Predominantly obscured Kidneys: Right: 10 cm longitudinally. Normal. No contour-deforming mass, stones, or hydronephrosis. There is a simple fluid containing cyst measuring 19 x 14 x 15 mm. Left: 11.6 cm longitudinally. Normal. No contour-deforming mass, stones, or hydronephrosis. Tiny subcentimeter simple cysts. Spleen: 10.2 cm. Normal in size and echotexture. And accessory spleen noted measuring 2.6 x 1.9 x 1.9 cm. Aorta and Inferior Vena Cava: Unremarkable. Other: Small right pleural effusion noted. IMPRESSION: Mildly coarse increased echotexture of liver, most consistent with steatosis. Status post cholecystectomy. Hepatic and Bilateral renal cysts. No other significant abnormality. Pancreas is predominantly obscured. RADIA
[2019-02-02] MEDS ORDERED: HALOPERIDOL 5 MG/ML VIAL IVP ONE (23:21)
[2019-02-02] MEDS ORDERED: HALOPERIDOL 5 MG/ML VIAL ONE (23:40)
[2019-02-03 05:06] LABS: BASOPHILS % (AUTO) 0.3 %; EOSINOPHILS % (AUTO) 1.1 %; HGB - HEMOGLOBIN 10.4 g/dL (14.0-18.0); LYMPHOCYTES # (AUTO) 0.3 10^3/uL (1.5-3.5); LYMPHOCYTES % (AUTO) 7.8 %; MEAN CORPUSCULAR HEMOGLOBIN 32.3 pg (27.0-31.0); MEAN CORPUSCULAR HGB CONC 30.4 g/dL (32.0-36.0); MEAN CORPUSCULAR VOLUME 106.2 fL (80.0-94.0); MEAN PLATELET VOLUME 9.9 fL (7.4-11.4); MONOCYTES # (AUTO) 0.5 10^3/uL (0.0-1.0); MONOCYTES % (AUTO) 14.5 %; NEUTROPHILS # (AUTO) 2.8 10^3/uL (1.5-6.6); PLT - PLATELET COUNT 124 10^3/uL (130-450); RED BLOOD COUNT 3.22 10^6/uL (4.70-6.10); RED CELL DISTRIBUTION WIDTH 13.2 % (12.0-15.0); WHITE BLOOD COUNT 3.7 x10^3/uL (4.8-10.8)
[2019-02-03] MEDS: SODIUM CHLORIDE FLUSH 0.9% 10 ML SYRINGE IVP SCH ×3 (05:12→13:25)
[2019-02-03 05:16] LABS: CALCIUM 8.2 mg/dL (8.5-10.3)
[2019-02-03] MEDS: FUROSEMIDE 40 MG/4 ML VIAL IVP SCH ×2 (05:39→13:25)
[2019-02-03] MEDS: SODIUM CHLORIDE FLUSH 0.9% 10 ML SYRINGE IVP PRN ×3 (05:40→21:15)
[2019-02-03] MEDS ORDERED: MORPHINE 2 MG/ML CARPUJECT IVP PRN (06:02)
--- NOTE | 2019-02-03 07:24 | PROVIDER PROGRESS NOTE ---
<Maxi Short - Last Filed: 02/03/19 19:57> Subjective - Prog Note Date Prog Note Date: 02/03/19 Prog Note Time: 08:47 - Subjective Pt reports feeling: Worse (Les is seen sitting up in chair this am as he was too uncomfortable in bed overnight. Son, Festus, reports that around 11pm, Les became delirius asking where he was and why. This lasted all night. He did not get any sleep overnight. He says "I know the oxygen is there, but I feel like I'm not getting any". Festus's main concern today is to have his plueral effusion drai dayanara, to assess if this helps his work of breathing any. The patient has also converted into Afib overnight, rate controlled, and had a 9 beat run of V-tach this am.) Current Medications - Current Medications Current Medications: Allergies adhesive Allergy (Verified 01/31/19 21:27) Rash atorvastatin calcium * [From Lipitor] Allergy (Verified 01/31/19 21:27) Unknown bupropion Allergy (Verified 01/31/19 21:27) Unknown hydralazine Allergy (Verified 01/31/19 21:27) Unknown propoxyphene HCl * [From Darvon] Allergy (Verified 01/31/19 21:27) Unknown spironolactone [From Aldactone] Allergy (Verified 01/31/19 21:27) Unknown sulfamethoxazole [From Bactrim] Allergy (Verified 01/31/19 21:27) Unknown tamsulosin [From Flomax] Allergy (Verified 01/31/19 21:27) Unknown trimethoprim [From Bactrim] Allergy (Verified 01/31/19 21:27) Unknown Home Medications Aspirin [Aspir 81] 81 mg PO DAILY 02/23/14 [History Confirmed 01/31/19] Carvedilol [Coreg] 25 mg PO BID 02/23/14 [History Confirmed 02/01/19] Lisinopril 40 mg PO DAILY 02/23/14 [History Confirmed 01/31/19] Multivitamin [Multivitamins] 1 each PO DAILY 02/23/14 [History Confirmed 01/31/19] Chlorhexidine Gluconate 15 ml MM DAILY 11/03/18 [History Confirmed 01/31/19] Potassium Chloride 10 meq PO BID 11/03/18 [History Confirmed 01/31/19] Trazodone HCl 50 mg PO QPM 11/03/18 [History Confirmed 02/01/19] Active Medications Acetaminophen (Tylenol) 650 mg PO Q6HR PRN PRN Reason: Pain 1 to 4 Carvedilol (Coreg) 12.5 mg PO BID [facility] Last Admin: 02/02/19 21:35 Dose: 12.5 mg Furosemide (Lasix Inj 40 Mg Vial) 40 mg IVP BIDDIURETIC [facility] Last Admin: 02/03/19 05:39 Dose: 40 mg Heparin Sodium (Porcine) () 5,000 unit SUBQ BID [facility] Last Admin: 02/02/19 21:35 Dose: 5,000 unit Lisinopril (Zestril) 40 mg PO DAILY [facility] Last Admin: 02/02/19 09:41 Dose: Not Given Morphine Sulfate (Morphine (Carpuject)) 1 mg IVP Q4HR PRN PRN Reason: Dyspnea Last Admin: 02/03/19 06:20 Dose: 1 mg Potassium Chloride (K-Dur) 20 meq PO DAILYWM [facility] Last Admin: 02/03/19 08:19 Dose: 20 meq Sodium Chloride (Normal Saline Flush 0.9%) 10 ml IVP PRN PRN PRN Reason: NEEDED PER PROVIDER ORDERS Last Admin: 02/03/19 06:20 Dose: 10 ml Sodium Chloride (Normal Saline Flush 0.9%) 10 ml IVP 0100,0900,1700 [facility] Last Admin: 02/03/19 08:21 Dose: 10 ml Zinc Oxide (Desitin) 1 gm TOP PRN PRN PRN Reason: Skin Care Last Admin: 02/02/19 00:27 Dose: 1 applic Aspirin [Aspir 81] 81 mg PO DAILY 02/23/14 Carvedilol [Coreg] 25 mg PO BID 02/23/14 Lisinopril 40 mg PO DAILY 02/23/14 Multivitamin [Multivitamins] 1 each PO DAILY 02/23/14 Chlorhexidine Gluconate 15 ml MM DAILY 11/03/18 Potassium Chloride 10 meq PO BID 11/03/18 Trazodone HCl 50 mg PO QPM 11/03/18 Objective - Vital Signs/Intake & Output Reviewed Vital Signs: Yes - Objective General Appearance: positive: Alert, Moderate distress Eyes Bilateral: positive: PERRL, Conjunctivae nml ENT: positive: No signs of dehydration Neck: positive: Trachea midline, Stiff neck, Carotid bruit Respiratory: positive: Other (tachpnic, shallow breathing, breath sounds diminished on L side. dull to percussion in L lung base.) Cardiovascular: positive: Irregularly irregular, Systolic murmur, Gallop/S3, Other (regular rate) Abdomen: positive: Nml bowel sounds, Tenderness, Other (LLQ tenderness, radiates to R side). negative: Guarding, Rebound, Mass Back: positive: Nml inspection Skin: positive: Warm, Dry, Other (bruising bilat upper extremeties. discoloration to bilateral shins, consistent with peripheral vascular disease) Extremities: positive: Non-tender, Nml appearance, No pedal edema, Other (LE edema resolved. No pitting.) Neurologic/Psychiatric: positive: Oriented x3, CN's nml (2-12), Depressed mood/affect, Other (more withdrawn today, head and eyes gazing downward, verbal responses today are minimal.) - Lab Results Fish Bones: 02/03/19 04:10 02/03/19 04:10 - Diagnostic Imaging Diagnostic Imaging Results: positive: Discussed with radiologist (Previous CXR reviewed in person with radiologist in anticipation of thoracentesis today) Assessment/Plan - Problem List (1) Acute and chronic respiratory failure with hypoxia Impression: In setting of acute on chronic end stage systolic HF. Though also likely to obstructive sleep apnea. He was also hypercapnic which initiated his transfer to ICU yesterday morning for BiPAP. His acute on chronic HF has improved with diuresis, but L sided pleural effusion remains. BiPAP was attempted again overnight, but patient was unable to tolerate for long periods of time and repeatedly was removing mask. He transferred out of bed to chair in the night due to orthopnea. He remains air hungry at rest, dyspnic and mildly tachypnic. Sats stable in mid 90s on 3L NC. He required 2-4L NC at baseline. Plan: -Continue on supplemental O2 via NC throughout day and BiPAP PRN -Discussed case with IR and planning for throacentesis today -Coags ordered, goal INR <1.5 for thora by IR (2) Acute on chronic systolic and diastolic heart failure, NYHA class 3 Impression: BNP previously 1413, down to 668 today. Most current echo shows an EF of 35%. In setting of new Afib developed overnight, presumed EF is compromised by this rhythm. His rate is currently controlled. Remains on carvedilol per home HF regimen. Previous LE edema is resolved with no pitting of lower extremeties. Continues to receive diuresis of lasix 40mg BID. Tomas catheter in place for strict I&O. Plan: -Continue IV diuresis, decrease dose to once daily, can order PRN in setting of fluid overload - Hold parameters for Lisinopril for SBP <90; and Hold carvedilol for HR <60 (3) Hx of coronary artery disease Impression: Plan -Continue home aspirin (4) Chronic pleural effusion Impression: Aspira catheter in place to L chest wall (placed ~12 weeks ago at [facility]). Tube has been assessed by Dr. Allen and is noted to be plugged by fibrinous exudate. Most recent CXR on 01/31 shows moderate left and small right pleural effusions. Drain site itself is clean, dry and intact with no erythema or draining, has no signs of infection. Patient is experincing pain to his L side at drain site that radiated down through the L abdomen. Discussed with patient and son that thoracentesis may result in subjective improvement of dyspnea and discomfort, however, may not result in a marked improvement of overall clinical status in regards to his concurrent heart failure. Plan: -Discussed patient with radiologist this am, who plans to perform a thoracentesis today -INR stable 1.3 this am for procedure -Will order PRN pain medication for pre/post procedure, morphine as this will also help with his dyspea (5) Hypertension Impression: Current BPs of recent have been lower for patient's baseline. Running in 110s/50s. Home regimen includes lisinopril which has been held on occasion through hospitalization due to hypotension. Plan; -Add hold parameters to lisinopril for SBP <90 (6) Macrocytic anemia Impression: Chronic, stable (7) Epigastric abdominal pain Impression: Abdominal pain is reportedly worse with eating. Concentrated in LLQ that radiates to RLQ of abdomen. Tenderness on palpation but abdomen is soft with no peritoneal signs. It is unclear whether pain is more due to pain that originated in the L chest at Aspira catheter site, or if organic cause in abdomen. Of note, patient has not had a BM since 01/31. BT present, passing gas. Plan: -Initiate bowel protocol -Morphine PRN for pain (8) RHODA on CPAP Impression: Patient is not tolerating home CPAP machine, so was initiated on BiPAP morning of 02/02 which worked well to improve his hypercapnea. Patient did not tolerate BiPAP well again overnight and was removing mask frequently, likely contributing to his poor sleep and development of delirium overnight. Plan: -Continue on O2 via NC during the day -Use BiPAP PRN for respiratory distress and while sleeping (9) Delirium due to general medical condition Impression: Elderly patient who has been hospitalized for multiple days. Poor sleep due to respiratory distress. Optimizing medical management of respiratory distress and discomfort. Plan: -Delirium precautions to include OOB to chair during day as tolerated, lights on during day and off at time, limit interruptions through night to promote sleep, open blinds in room during day, etc. -Continue to monitor <Isatu Zhang - Last Filed: 02/03/19 20:18> Subjective - Subjective Subjective: I am seeing this patient in conjunction with nurse practitioner student from . I seen and examined this patient independently from student. He is alert, but has been waxing and waning with a status over the course of the day. This morning he was miserable with tachypnea, shortness of breath. By this afternoon feels much better. He underwent a thoracentesis with radiology and there was scant fluid to be had. He really did not have enough fluid to say this is why short of breath. He is gone into atrial fibrillation and rate is controlled. Objective - Vital Signs/Intake & Output Vital Signs: Vital Signs Temp Pulse Resp BP Pulse Ox 02/03/19 06:37 85 34 H 108/64 95 02/03/19 05:00 83 25 H 115/60 96 02/03/19 04:00 36.8 C 82 35 H 109/66 96 Intake & Output: Intake & Output 01/31/19 02/01/19 02/02/19 02/03/19 23:59 23:59 23:59 23:59 Intake Total 15 1300 1600 200 Output Total 1125 1800 1438 450 Balance -1110 -500 162 -250 - Objective Comments/Other: On examination he is an alert elderly gentleman who is managed to recover some of his endurance and is sitting up in a chair. He is exhausted. After 45 minutes of conversation between he, I, and his family he really wants everyone to leave so he can rest. He is wearing nasal cannula oxygen, able to have a conversation without shortness of breath but after 30 minutes, again, tired. No JVD. Minimal crackles at both lung bases. Diminished sounds at the left lung base. Tachypnea with speaking, or trying to reposition himself in the chair. Slow regular rate and rhythm. If he is in A. fib until he says so, I am not hearing the irregularity. PMI laterally displaced. The abdomen is soft, nontender. The hard woody edema that was present in his legs on admission is resolved. - Lab Results Fish Bones: 02/03/19 04:10 02/03/19 04:10 Other Labs: Lab Results x24hrs 02/03/19 02/03/19 02/03/19 Range/Units 04:10 04:10 04:10 WBC 3.7 L (4.8-10.8) x10^3/uL RBC 3.22 L (4.70-6.10) 10^6/uL Hgb 10.4 L (14.0-18.0) g/dL Hct 34.2 L (42.0-52.0) % MCV 106.2 H (80.0-94.0) fL MCH 32.3 H (27.0-31.0) pg MCHC 30.4 L (32.0-36.0) g/dL RDW 13.2 (12.0-15.0) % Plt Count 124 L (130-450) 10^3/uL MPV 9.9 (7.4-11.4) fL Neut # (Auto) 2.8 (1.5-6.6) 10^3/uL Lymph # (Auto) 0.3 L (1.5-3.5) 10^3/uL [place] # (Auto) 0.5 (0.0-1.0) 10^3/uL Eos # (Auto) 0.0 (0.0-0.7) 10^3/uL Baso # (Auto) 0.0 (0.0-0.1) 10^3/uL Absolute Nucleated RBC 0.00 x10^3/uL Nucleated RBC % 0.0 /100WBC Bld Gas Analysis Time Sample Site ABG pH (7.35-7.45) ABG pCO2 (34-45) mmHg ABG pO2 (80-100) mmHg ABG HCO3 (22.0-26.0) mmol/L ABG Total CO2 (21.0-29.0) MMOL/L ABG O2 Saturation (94-98) % ABG Base Excess (-2.0-3.0) mmol/L Jez Test O2 Delivery Device FiO2 EPAP cmH2O IPAP cmH2O Sodium 142 (135-145) mmol/L Potassium 4.4 (3.5-5.0) mmol/L Chloride 96 L (101-111) mmol/L Carbon Dioxide 38 H (21-32) mmol/L Anion Gap 8.0 (6-13) BUN 26 H (6-20) mg/dL Creatinine 1.0 (0.6-1.2) mg/dL Estimated GFR (MDRD) 71 L (>89) Glucose 107 H (70-100) mg/dL Calcium 8.2 L (8.5-10.3) mg/dL B-Natriuretic Peptide 668 H (5-100) pg/mL Nasal Screen MRSA (PCR) (NEGATIVE) 02/02/19 02/02/19 Range/Units 08:55 08:45 WBC (4.8-10.8) x10^3/uL RBC (4.70-6.10) 10^6/uL Hgb (14.0-18.0) g/dL Hct (42.0-52.0) % MCV (80.0-94.0) fL MCH (27.0-31.0) pg MCHC (32.0-36.0) g/dL RDW (12.0-15.0) % Plt Count (130-450) 10^3/uL MPV (7.4-11.4) fL Neut # (Auto) (1.5-6.6) 10^3/uL Lymph # (Auto) (1.5-3.5) 10^3/uL [place] # (Auto) (0.0-1.0) 10^3/uL Eos # (Auto) (0.0-0.7) 10^3/uL Baso # (Auto) (0.0-0.1) 10^3/uL Absolute Nucleated RBC x10^3/uL Nucleated RBC % /100WBC Bld Gas Analysis Time 08:55 Sample Site LEFT RADIAL ABG pH 7.30 L (7.35-7.45) ABG pCO2 84 H* (34-45) mmHg ABG pO2 86 (80-100) mmHg ABG HCO3 40.5 H (22.0-26.0) mmol/L ABG Total CO2 43.0 H* (21.0-29.0) MMOL/L ABG O2 Saturation 97 (94-98) % ABG Base Excess 11.0 H (-2.0-3.0) mmol/L Jez Test POSITIVE O2 Delivery Device BiPAP FiO2 35.00 EPAP 6 cmH2O IPAP 18 cmH2O Sodium (135-145) mmol/L Potassium (3.5-5.0) mmol/L Chloride (101-111) mmol/L Carbon Dioxide (21-32) mmol/L Anion Gap (6-13) BUN (6-20) mg/dL Creatinine (0.6-1.2) mg/dL Estimated GFR (MDRD) (>89) Glucose (70-100) mg/dL Calcium (8.5-10.3) mg/dL B-Natriuretic Peptide (5-100) pg/mL Nasal Screen MRSA (PCR) NEGATIVE (NEGATIVE) Assessment/Plan - Problem List (1) Acute and chronic respiratory failure with hypoxia Impression: Combination of acute on chronic systolic failure, as well as obstructive sleep apnea. His heart failure I think is a stable as I am going to get it. We will work on getting the CPAP mask to work for him so that he can go home with it. Continue supplemental O2. (2) Pleural effusion Impression: Status post thoracentesis today. The color was bloody, hazy clarity. 32 white cells, 21,000 red cells. 48% neutrophils, 40% lymphocytes, 10% monocytes. The family states that he has had thoracentesis in the past to see if he has asbestosis or mesothelioma because of his work in the [employer]. He is always been negative. Chemistry is pending. INSTRUCTIONAL FACILITATOR was ordered and pending. I do not recommend another chest to be placed. This last one probably did not give him the relief he thought he was going to get. And he really had minimal pleural effusion today to tap. He is asking get the chest tube pulled. I will ask radiology or surgery to do so. (3) Epigastric abdominal pain Impression: Gallbladder is gone. Common bile duct is not enlarged. He has cystic kidneys. Increased echotexture of the liver. Nothing to explain why he was having epigastric pain. His left lower quadrant pain has resolved. No further work- up. (4) RHODA on CPAP Impression: Respiratory therapy will continue to work with him tonight. This is a new mask for him. He just got it delivered to the house last Sunday (today is Sunday). He really still does not know how to use it. (5) End stage congestive heart failure Impression: 1 hour conversation held with 2 daughters, [id number], and his son. I believe this patient should be ready for discharge on February 05. We will decrease his Lasix from twice a day to once a day to avoid dehydrating him. We will have the chest tube pulled tomorrow. They asked very specific questions about palliative care versus hospice and was the difference between the 2 of them. They are ready to go to palliative care. And will figure out if he is a candidate for hospice later. Right now he has an ejection fraction of 35% and he is oxygen dependent.
[2019-02-03] MEDS: POTASSIUM CHLORIDE 20 MEQ TABLET PO SCH (08:19)
[2019-02-03 09:15] LABS: INR 1.3 (0.8-1.2); PT - PROTHROMBIN TIME 14.1 secs (9.9-12.6)
[2019-02-03] MEDS: CARVEDILOL 12.5 MG TABLET PO SCH ×2 (09:44→20:54)
[2019-02-03] MEDS: HEPARIN 5,000 UNIT/ML VIAL SUBQ SCH ×2 (11:02→20:55)
[2019-02-03] MEDS ORDERED: BUFFERED LIDOCAINE 10 ML SYRINGE ONE (11:06)
[2019-02-03] MEDS: MORPHINE 2 MG/ML CARPUJECT IVP PRN ×2 (12:15→21:14)
[2019-02-03] MEDS ORDERED: BUFFERED LIDOCAINE 10 ML SYRINGE IU ONE (13:15)
[2019-02-03] MEDS: LISINOPRIL 20 MG TABLET PO SCH (13:18)
[2019-02-03] MEDS: POLYETHYLENE GLYCOL 3350 17 GM PACKET PO SCH (13:24)
[2019-02-03 13:43] LABS: BF COLOR BLOODY; BF SOURCE PLEURAL; CC,BF RBC 21000 /mm^3
--- NOTE | 2019-02-03 13:49 | XRAY Report ---
Reason: s/p thoacentesis Procedure Date: 02/03/2019 Accession Number: [id number] / [id number] Procedure: XR - Chest 1 View X-Ray CPT Code: 62847 FULL RESULT: EXAM: CHEST RADIOGRAPHY EXAM DATE: 02/03/2019 12:53 PM. CLINICAL HISTORY: Status post thoracentesis. COMPARISON: CHEST 1 VIEW 02/01/2019 6:17 AM. TECHNIQUE: 1 view. FINDINGS: Cardiac leads overlie the chest. The heart remains mildly enlarged and unchanged from the prior exam. Calcified plaques in the aortic arch. Patchy hazy opacities in the lung bases bilaterally, which have slightly increased in the right lung base. The small right pleural effusion has slightly increased in volume. No significant change in appearance of the left pleural effusion. No pneumothorax. The bones are osteopenic. Severe degenerative changes of the left glenohumeral joint. IMPRESSION: Status post thoracentesis. No pneumothorax visualized. No significant change in radiographic appearance of the left pleural effusion. Slightly increased volume of the small right pleural effusion. Bibasilar atelectasis. RADIA
[2019-02-03 15:02] LABS: EOSINOPHILS %,BODY FLUID 2 %; LYMPHOCYTES %,BODY FLUID 40; MESOTHELIAL %, BF 0 %; MONOCYTES %,BODY FLUID 10 %
--- NOTE | 2019-02-03 16:06 | Ultrasound Report ---
Reason: pleural effusion with sob Procedure Date: 02/03/2019 Accession Number: [id number] / [id number] Procedure: US - Thoracentesis Puncture CPT Code: FULL RESULT: EXAM: ULTRASOUND-GUIDED THORACENTESIS EXAM DATE: 02/03/2019 11:22 AM. CLINICAL HISTORY: Pleural effusion with shortness of breath. COMPARISON: None. TECHNIQUE: Risks, benefits and alternatives to the procedure were discussed with the patient. All questions answered. Written and verbal consent obtained. Patient was placed in the sitting position and the skin overlying the effusion marked with sonographic guidance. The skin was sterilely prepped and draped, and 1% buffered lidocaine was used for local anesthesia. An 18-gauge Yueh type catheter needle was advanced into the pleural space and fluid aspirated. Upon completion, the catheter was removed. FINDINGS: A total of 75-100 mL of fluid was removed without immediate complication. Patient tolerated procedure well. IMPRESSION: Ultrasound-guided thoracentesis without immediate complications. RADIA
[2019-02-03] MEDS: traZODone 50 MG TABLET PO SCH (20:54)
[2019-02-04] MEDS: SODIUM CHLORIDE FLUSH 0.9% 10 ML SYRINGE IVP SCH ×3 (00:23→16:19)
[2019-02-04] MEDS: FUROSEMIDE 40 MG/4 ML VIAL IVP SCH (06:04)
[2019-02-04] MEDS: SODIUM CHLORIDE FLUSH 0.9% 10 ML SYRINGE IVP PRN (06:05)
[2019-02-04 07:38] LABS: CALCIUM 8.5 mg/dL (8.5-10.3); CREATININE 0.9 mg/dL (0.6-1.2)
[2019-02-04] MEDS: POTASSIUM CHLORIDE 20 MEQ TABLET PO SCH (08:12)
[2019-02-04] MEDS: LISINOPRIL 20 MG TABLET PO SCH (08:14)
[2019-02-04] MEDS: CARVEDILOL 12.5 MG TABLET PO SCH ×2 (08:14→21:46)
[2019-02-04] MEDS: DOCUSATE SODIUM 250 MG CAPSULE PO SCH (08:14)
[2019-02-04] MEDS: SENNA 8.6 MG TABLET PO SCH (08:15)
[2019-02-04] MEDS: POLYETHYLENE GLYCOL 3350 17 GM PACKET PO SCH (08:15)
[2019-02-04] MEDS: NYSTATIN POWDER 15 GM TOP SCH ×2 (08:22→21:46)
[2019-02-04] MEDS: HEPARIN 5,000 UNIT/ML VIAL SUBQ SCH ×2 (08:54→21:46)
[2019-02-04] MEDS ORDERED: metOLazone 2.5 MG TABLET PO SCH (09:00)
[2019-02-04 09:40] LABS: % IRON SATURATION 16 % (20-50); IRON 34 ug/dL (45-182); TOTAL IRON BINDING CAPACITY 218 ug/dL (250-450); TRANSFERRIN 156 mg/dL (180-329)
[2019-02-04 09:49] LABS: THYROID STIMULATING HORMONE 1.3 uIU/mL (0.34-5.60)
[2019-02-04 10:00] LABS: FOLATE 8.53 ng/mL (5.90 - >24.8)
[2019-02-04] MEDS: EPLERENONE 25 MG TABLET PO SCH (11:20)
--- NOTE | 2019-02-04 15:19 | PROVIDER PROGRESS NOTE ---
<HanMaxi - Last Filed: 02/04/19 17:28> Subjective - Prog Note Date Prog Note Date: 02/04/19 Prog Note Time: 15:05 - Subjective Pt reports feeling: Improved Subjective: Mr. Ontiveros is seen sitting up in his chair today, alert and oriented, in no acute distress. Got a better night's sleep last night with addition of trazadone at HS. He just finished eating lunch and working with occupational therapy. His breathing feels comfortable today, and has been on NC since yesterday morning. He does not feel any chest pain, palpitations, or dyspnea. There is a guaze dressing over his left back where IR performed a thoracentesis yesterday, he has no pain or discomfort at the site. We discussed the discomfort he is experiencing with his home CPAP and provided suggestions to try out new masks or potentially nasal pillows to find what is most comfortable and tolerable for Mr. Ontiveros at home. Changes to the medical management were discussed with Mr. Ontiveros, his son, and daughter in law. We have added eplerenone and metolazone, decreased the dose of his lisinopril and decreased furosemide to once daily. We will keep patient in the hospital to monitor how these changes affect the patient overnight. Current Medications - Current Medications Current Medications: Allergies adhesive Allergy (Verified 01/31/19 21:27) Rash atorvastatin calcium * [From Lipitor] Allergy (Verified 01/31/19 21:27) Unknown bupropion Allergy (Verified 01/31/19 21:27) Unknown hydralazine Allergy (Verified 01/31/19 21:27) Unknown propoxyphene HCl * [From Darvon] Allergy (Verified 01/31/19 21:27) Unknown spironolactone [From Aldactone] Allergy (Verified 01/31/19 21:27) Unknown sulfamethoxazole [From Bactrim] Allergy (Verified 01/31/19 21:27) Unknown tamsulosin [From Flomax] Allergy (Verified 01/31/19 21:27) Unknown trimethoprim [From Bactrim] Allergy (Verified 01/31/19 21:27) Unknown Home Medications Aspirin [Aspir 81] 81 mg PO DAILY 02/23/14 [History Confirmed 01/31/19] Carvedilol [Coreg] 25 mg PO BID 02/23/14 [History Confirmed 02/01/19] Lisinopril 40 mg PO DAILY 02/23/14 [History Confirmed 01/31/19] Multivitamin [Multivitamins] 1 each PO DAILY 02/23/14 [History Confirmed 01/31/19] Chlorhexidine Gluconate 15 ml MM DAILY 11/03/18 [History Confirmed 01/31/19] Potassium Chloride 10 meq PO BID 11/03/18 [History Confirmed 01/31/19] Trazodone HCl 50 mg PO QPM 11/03/18 [History Confirmed 02/01/19] Active Medications Acetaminophen (Tylenol) 650 mg PO Q6HR PRN PRN Reason: Pain 1 to 4 Carvedilol (Coreg) 12.5 mg PO BID [facility] Last Admin: 02/04/19 08:14 Dose: 12.5 mg Docusate Sodium (Colace 250mg Capsule) 250 - 500 mg PO DAILY [facility] Last Admin: 02/04/19 08:14 Dose: 250 mg Eplerenone (Inspra) 25 mg PO DAILY [facility] Last Admin: 02/04/19 11:20 Dose: 25 mg Ferrous Gluconate (Fergon) 324 mg PO DAILYWM [facility] Furosemide (Lasix Inj 40 Mg Vial) 40 mg IVP 0800 [facility] Heparin Sodium (Porcine) () 5,000 unit SUBQ BID [facility] Last Admin: 02/04/19 08:54 Dose: 5,000 unit Lisinopril (Zestril) 20 mg PO DAILY [facility] Metolazone (Zaroxolyn) 2.5 mg PO DAILY [facility] Last Admin: 02/04/19 10:58 Dose: Not Given Morphine Sulfate (Morphine (Carpuject)) 2 mg IVP Q2H PRN PRN Reason: Dyspnea Last Admin: 02/03/19 21:14 Dose: 2 mg Nystatin (Nystop) 1 applic TOP BID [facility] Last Admin: 02/04/19 08:22 Dose: 1 applic Polyethylene Glycol (Miralax) 17 gm PO DAILY [facility] Last Admin: 02/04/19 08:15 Dose: 17 gm Potassium Chloride (K-Dur) 20 meq PO DAILYWM [facility] Last Admin: 02/04/19 08:12 Dose: 20 meq Senna (Senokot) 8.6 - 17.2 mg PO DAILY [facility] Last Admin: 02/04/19 08:15 Dose: 8.6 mg Sodium Chloride (Normal Saline Flush 0.9%) 10 ml IVP PRN PRN PRN Reason: NEEDED PER PROVIDER ORDERS Last Admin: 02/04/19 06:05 Dose: 10 ml Sodium Chloride (Normal Saline Flush 0.9%) 10 ml IVP 0100,0900,1700 [facility] Last Admin: 02/04/19 08:22 Dose: 10 ml Trazodone HCl (Desyrel) 50 mg PO QPM [facility] Last Admin: 02/03/19 20:54 Dose: 50 mg Zinc Oxide (Desitin) 1 gm TOP PRN PRN PRN Reason: Skin Care Last Admin: 02/02/19 00:27 Dose: 1 applic Aspirin [Aspir 81] 81 mg PO DAILY 02/23/14 Carvedilol [Coreg] 25 mg PO BID 02/23/14 Lisinopril 40 mg PO DAILY 02/23/14 Multivitamin [Multivitamins] 1 each PO DAILY 02/23/14 Chlorhexidine Gluconate 15 ml MM DAILY 11/03/18 Potassium Chloride 10 meq PO BID 11/03/18 Trazodone HCl 50 mg PO QPM 11/03/18 Objective - Vital Signs/Intake & Output Reviewed Vital Signs: Yes - Objective General Appearance: positive: No acute distress, Alert Eyes Bilateral: positive: Normal inspection, PERRL, EOMI, No scleral icterus ENT: positive: ENT inspection nml, No signs of dehydration Neck: positive: Nml inspection, Thyroid nml, No JVD, Trachea midline, Stiff neck Cardiovascular: positive: Irregularly irregular, Systolic murmur, Gallop/S3, Other (Rate controlled A-fib) Peripheral Pulses: 2+ Radial (R), 2+ Radial (L), 2+ Dorsalis pedis (R), 2+ Dorsalis pedis (L) Abdomen: positive: Non-tender, No organomegaly, Nml bowel sounds. negative: Tenderness Back: positive: Nml inspection. negative: CVA tenderness (R), CVA tenderness (L) Skin: positive: Color nml, Warm, Dry, Skin rash, Other (rash under L breast) Extremities: positive: Non-tender, Full ROM, Nml appearance, Other (1+ pitting edema to bilat LE; no change from prior assessment) Neurologic/Psychiatric: positive: Oriented x3, CN's nml (2-12), Motor nml, Sensation nml, Mood/affect nml - Lab Results Fish Bones: 02/03/19 04:10 02/04/19 07:18 Assessment/Plan - Problem List (1) Acute and chronic respiratory failure with hypoxia Impression: Impression: Resolved. In setting of acute on chronic systolic HF, though also likely to uncontrolled obstructive sleep apnea. He was also hypercapnic which initiated his transfer to ICU for BiPAP the am of 02/02, which he has now been off of since yesterday morning. His acute on chronic HF has improved with diuresis, but L sided pleural effusion remains unchanged on CXR. His sleep was not hindered last night due to orthopnea as it was previous nights. He requires 2-4L NC at baseline, and is back to that need here as well. Plan: -Continue on supplemental O2 via NC -Follow up as outpatient for proper fitting CPAP mask or nasal pillows (2) Acute on chronic systolic and diastolic heart failure, NYHA class 3 Impression: Thought patient appears less edematous in lower extremities, his weight is essentially unchanged since admit weight. He appears to be net negative 2-3L over admission. BNP previously 1413, down to 668. Most current echo shows an EF of 35%. In setting of new Afib developed, presumed EF is compromised by this rhythm. His rate is currently controlled. Remains on carvedilol per home HF re gimen. Previous LE edema is greatly lessoned with 1+ pitting edema remaining in bilat LE. Continues to receive diuresis with lasix. Tomas catheter in place for strict I&O. Plan: -Order metolazone and eplerenone in setting of spironalactone allergy to optimize diuresis -Continue lasix 40mg DAILY (decreased from BID) -Decrease lisinopril to 20mg daily (from 40mg) -Repeat echo 2D to reassess EF w/ a PA pressure to assess his pulmonary HTN - Hold parameters for Lisinopril for SBP <90; and Hold carvedilol for HR <60 (3) RHODA on CPAP Impression: Patient is not tolerating home CPAP machine, so was initiated on BiPAP morning of 02/02 which worked well to improve his hypercapnea. Patient's home CPAP mask is ill fitting and uncomfortable so he is not using it at all. We discussed today him trialing different masks or potentially the nasal pillows. 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 Patient did not tolerate an EKG as he was too overwhelmed at the time. EKG was obtained today which confirmed Afib with controlled HR in 80s. Mr. Ontiveros remains asymptomatic of this arrhythmia. Plan: -Continue carvedilol -Check TSH to look for metabolic etiology. TSH within normal. -Optimize electrolytes to keep K>4, Mg>2 -Presume that Afib may resolve with optimization of diuresis along with gaining control of RHODA (5) Chronic pleural effusion Impression: Aspira catheter in place to L chest wall (placed ~12 weeks ago at [facility]). Tube has been assessed by Dr. Allen and is noted to be plugged by fibrinous exudate. Most recent CXR on 01/31 shows moderate left and small right pleural effusions. Drain site itself is clean, dry and intact with no erythema or draining, has no signs of infection. Patient is experincing pain to his L side at drain site that radiated down through the L abdomen. Discussed with patient and son that thoracentesis may result in subjective improvement of dyspnea and discomfort, however, may not result in a marked improvement of overall clinical status in regards to his concurrent heart failure. Plan: -Discussed patient with radiologist this am, who plans to perform a thoracentesis today -INR stable 1.3 this am for procedure -Will order PRN pain medication for pre/post procedure, morphine as this will also help with his dyspea (6) Macrocytic anemia Patient has not had a folate or B12 checked in months. In setting of chronic high MCV and anemia there is suspicion for an iron deficiency. We will obtain an iron panel, if TIBC low-obtain a stool guaic to look for a source of bleeding. Will also recheck folate and B12 for complete picture. Plan: -In setting of low iron, initiate oral iron replacement with ferrous gluconate -Will order for stool guaiac in setting of low TIBC of 16% -B12 and folate WNL, though B12 is low normal at 250. He may benefit from taking a B12 supplement (7) Hx of coronary artery disease. Troponin rechecked this AM in setting of new Afib, which was stable at 0.07. Plan -Continue home aspirin (8) Hypertension. Controlled Impression: Current BPs of recent have been lower for patient's baseline. Running in 110s/50s. Home regimen includes lisinopril which has been held on occasion through hospitalization due to hypotension. He has been stable over the last 24- 48hrs with no further episodes of hypotension. Plan: -Decreasing lisinopril dose from 40 to 20mg in anticipation of BP drops with additional diuretics. -Continue to follow hold parameters for lisinopril if SBP <90 (9) Epigastric abdominal pain. Resolved Impression: Abdominal pain was reported with eating previously. Concentrated in LLQ that radiates to RLQ of abdomen. Tenderness on palpation has resolved. Abdomen is so ft with no peritoneal signs. Suspect that pain was due primarily to Aspira catheter. Of note, patient had not had a BM since 01/31, started bowel protocol yesterday and patient had BM today (02/04). Plan: -Continue bowel protocol (10) Delirium due to general medical condition. Resolved Impression: Elderly patient who has been hospitalized for multiple days. Poor sleep due to respiratory distress. Optimizing medical management of respiratory distress and discomfort. His delirium he was exhibiting the night of 02/02 into am of 02/03 has since resolved with the improvement of his respiratory status and better sleep hygiene. Plan: -Delirium precautions to include OOB to chair during day as tolerated, lights on during day and off at time, limit interruptions through night to promote sleep, open blinds in room during day, etc. <Dara Fan - Last Filed: 02/04/19 18:52> Subjective - Subjective Pt reports feeling: No change Objective - Vital Signs/Intake & Output Reviewed Vital Signs: Yes Vital Signs: Vital Signs Pulse Resp BP Pulse Ox 02/04/19 14:00 84 19 114/55 L 97 02/04/19 13:00 83 22 115/71 99 02/04/19 12:00 80 29 H 115/58 L 93 Intake & Output: Intake & Output 02/01/19 02/02/19 02/03/19 02/04/19 23:59 23:59 23:59 23:59 Intake Total 1300 1600 800 320 Output Total 1800 1438 1928 1320 Balance -500 162 -1128 -1000 - Objective General Appearance: positive: No acute distress, Alert Eyes Bilateral: positive: PERRL ENT: positive: ENT inspection nml Neck: positive: Nml inspection, No JVD Respiratory: positive: No respiratory distress, Rales Cardiovascular: positive: No murmur, Irregularly irregular Abdomen: positive: Non-tender Extremities: positive: Other - Lab Results Fish Bones: 02/03/19 04:10 02/04/19 07:18 Other Labs: Lab Results x24hrs 02/04/19 02/04/19 02/04/19 Range/Units 07:18 07:18 07:18 Sodium (135-145) mmol/L Potassium (3.5-5.0) mmol/L Chloride (101-111) mmol/L Carbon Dioxide (21-32) mmol/L Anion Gap (6-13) BUN (6-20) mg/dL Creatinine (0.6-1.2) mg/dL Estimated GFR (MDRD) (>89) Glucose (70-100) mg/dL Calcium (8.5-10.3) mg/dL Iron 34 L (45-182) ug/dL TIBC 218 L (250-450) ug/dL % Saturation 16 L (20-50) % Transferrin 156 L (180-329) mg/dL Troponin I 0.07 (<0.49) ng/mL B-Natriuretic Peptide (5-100) pg/mL Vitamin B12 250 (180-914) pg/mL Folate 8.53 (5.90 - >24.8) ng/mL TSH 1.30 (0.34-5.60) uIU/mL 02/04/19 02/04/19 Range/Units 07:18 07:18 Sodium 142 (135-145) mmol/L Potassium 4.5 (3.5-5.0) mmol/L Chloride 92 L (101-111) mmol/L Carbon Dioxide 40 H* (21-32) mmol/L Anion Gap 10.0 (6-13) BUN 26 H (6-20) mg/dL Creatinine 0.9 (0.6-1.2) mg/dL Estimated GFR (MDRD) 80 L (>89) Glucose 129 H (70-100) mg/dL Calcium 8.5 (8.5-10.3) mg/dL Iron (45-182) ug/dL TIBC (250-450) ug/dL % Saturation (20-50) % Transferrin (180-329) mg/dL Troponin I (<0.49) ng/mL B-Natriuretic Peptide 1062 H (5-100) pg/mL Vitamin B12 (180-914) pg/mL Folate (5.90 - >24.8) ng/mL TSH (0.34-5.60) uIU/mL Assessment/Plan - Problem List (1) Congestive heart failure Impression: ACUTE ON CHRONIC SYSTOLIC HEART FAILURE, AHA stage 3. We will recheck a limited echo to assess the EF. If it has dropped severely, for example 10%, this is important information to give the family regarding prognosis. 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 Continue with carvedilol. Qualifiers: Heart failure type: unspecified Heart failure chronicity: acute on chronic Qualified Code(s): I50.9 - Heart failure, unspecified (2) RHODA on CPAP Impression: Patient was not compliant with this at home and does not like the feel of the CPAP 4/BiPAP here. He has agreed to try it again tonight if needed. We are trying to arrange for a different CPAP mask in order to improve compliance at home (3) Chronic pleural effusion Impression: Only 75 cc of fluid were tapped yesterday by interventional radiology. The post thoracentesis chest x-ray showed no change in the left-sided effusion (the side that was tapped) and a slightly larger right-sided effusion. Will address the worsening pleural effusions with more aggressive diuresis as described above. Since the chest tube is occluded, I have requested a surgery consult for removal of the tube which will be done in the OR tomorrow, per the general surgeon (4) New onset a-fib Impression: Patient went A. fib 2 days ago. Most likely etiologies are untreated sleep apnea or worsening CHF, and will also rule out an acute MN as the cause for the new onset of A. fib by checking a troponin today The heart rate is controlled because of being on carvedilol chronically and he is not an anticoagulation candidate because of his Advanced age and possibility of GI blood loss (see below) (5) Anemia Impression: Despite an elevated MCV, will check an iron panel and if low, replace with iron and check guaiac, will also check B12 and folate levels (6) Depression Impression: This is a common sequelae of CHF exacerbation. Continue his prehospital medications and plan for the upcoming psychology appointment. (7) Hx of coronary artery disease Impression: A new troponin check is pending today, as described above. Otherwise continue his daily aspirin and statin and beta-anthony post MN (8) Hypertension Impression: Controlled on current meds, in fact the lisinopril 40 mg daily dose will be decreased in order to add into new medications (see above). (9) Epigastric abdominal pain Impression: No further complaints of this. The impression is that it is caused by the indwelling chest tube. (10) Delirium due to general medical condition Impression: Resolved, with reorientation and improved oxygenation
--- NOTE | 2019-02-04 15:39 | PROVIDER PROGRESS NOTE ---
Assessment/Plan - Problem List (1) Chronic pleural effusion Assessment/Plan: Stable with nonfunctional pleural catheter; Plan: removal of catheter in am prior to discharge. PAR conf with pt and consent obtained. - Current Meds Current Meds: Current Medications Generic Name Dose Route Start Last Admin Trade Name Freq PRN Reason Stop Dose Admin Carvedilol 12.5 mg 02/01/19 09:00 02/04/19 08:14 Coreg PO 12.5 mg BID HOMER Administration Docusate Sodium 250 - 500 mg 02/04/19 09:00 02/04/19 08:14 Colace 250mg Capsule PO 250 mg DAILY HOMER Administration Eplerenone 25 mg 02/04/19 10:00 02/04/19 11:20 Inspra PO 25 mg DAILY HOMER Administration Heparin Sodium (Porcine) 5,000 unit 02/01/19 09:00 02/04/19 08:54 SUBQ 5,000 unit BID HOMER Administration Metolazone 2.5 mg 02/04/19 09:00 02/04/19 10:58 Zaroxolyn PO Not Given DAILY HOMER Morphine Sulfate 2 mg 02/03/19 10:12 02/03/19 21:14 Morphine (Carpuject) IVP 2 mg Q2H PRN Administration Dyspnea Nystatin 1 applic 02/04/19 09:00 02/04/19 08:22 Nystop TOP 1 applic BID HOMER Administration Polyethylene Glycol 17 gm 02/03/19 10:00 02/04/19 08:15 Miralax PO 17 gm DAILY HOMER Administration Potassium Chloride 20 meq 02/01/19 08:00 02/04/19 08:12 K-Dur PO 20 meq DAILYWM HOMER Administration Senna 8.6 - 17.2 mg 02/04/19 09:00 02/04/19 08:15 Senokot PO 8.6 mg DAILY HOMER Administration Sodium Chloride 10 ml 01/31/19 23:53 02/04/19 06:05 Normal Saline Flush 0.9% IVP 10 ml PRN PRN Administration NEEDED PER PROVIDER ORDERS Sodium Chloride 10 ml 02/01/19 01:00 02/04/19 08:22 Normal Saline Flush 0.9% IVP 10 ml 0100,0900,1700 HOMER Administration Trazodone HCl 50 mg 02/03/19 21:00 02/03/19 20:54 Desyrel PO 50 mg QPM HOMER Administration Zinc Oxide 1 gm 02/01/19 12:56 02/02/19 00:27 Desitin TOP 1 applic PRN PRN Administration Skin Care - Lab Result Lab results reviewed: Yes Fish Bone Diagrams: 02/03/19 04:10 02/04/19 07:18 - Diagnostic Imaging Results Diagnostic Imaging Results: Final report reviewed, Read independently Diagnostic Imaging Results Comments: Large left pleural effusion, cardiomegaly, small right pleural effustion - Additional Planning Condition/Complexity: Guarded My Orders: My Active Orders 02/05/19 00:01 NPO except Meds at Midnight [DIET] Plan Discussed with:: Patient, Other (hospitalist) Time Spent: 31-60 minutes Subjective - Subjective Patient Reports: Chest Pain (at pleural catheter site), Shortness of Breath, Other (c/o discomfort at pleural catheter site; would like it removed.) Objective Vital Signs: Vital Signs - 24 hr 02/03/19 02/03/19 02/03/19 16:00 17:00 18:00 Temperature 36.7 C Heart Rate [ Activity] Heart Rate [ 84 81 88 Monitoring electrodes] Heart Rate [ Supine] Respiratory 30 H 21 28 H Rate Blood Pressure [Activity] Blood Pressure 117/72 117/72 113/61 [Left Brachial artery] Blood Pressure [Supine] O2 Saturation 96 97 98 02/03/19 02/03/19 02/03/19 19:00 19:47 20:00 Temperature 36.7 C Heart Rate [ Activity] Heart Rate [ 79 85 Monitoring electrodes] Heart Rate [ Supine] Respiratory 19 21 Rate Blood Pressure [Activity] Blood Pressure 114/59 L 122/69 [Left Brachial artery] Blood Pressure [Supine] O2 Saturation 100 98 02/03/19 02/03/19 02/03/19 21:00 21:19 22:00 Temperature 36.7 C Heart Rate [ Activity] Heart Rate [ 88 82 Monitoring electrodes] Heart Rate [ Supine] Respiratory 22 27 H Rate Blood Pressure [Activity] Blood Pressure 121/68 116/62 [Left Brachial artery] Blood Pressure [Supine] O2 Saturation 93 99 02/03/19 02/04/19 02/04/19 23:00 00:00 01:00 Temperature 36.6 C Heart Rate [ Activity] Heart Rate [ 82 82 79 Monitoring electrodes] Heart Rate [ Supine] Respiratory 23 26 H 24 Rate Blood Pressure [Activity] Blood Pressure 122/63 114/60 115/63 [Left Brachial artery] Blood Pressure [Supine] O2 Saturation 98 94 92 02/04/19 02/04/19 02/04/19 02:00 03:00 04:00 Temperature Heart Rate [ Activity] Heart Rate [ 81 80 79 Monitoring electrodes] Heart Rate [ Supine] Respiratory 23 21 20 Rate Blood Pressure [Activity] Blood Pressure 122/58 L 117/78 122/67 [Left Brachial artery] Blood Pressure [Supine] O2 Saturation 96 94 96 02/04/19 02/04/19 02/04/19 05:00 06:00 07:00 Temperature Heart Rate [ Activity] Heart Rate [ 83 82 82 Monitoring electrodes] Heart Rate [ Supine] Respiratory 23 26 H 22 Rate Blood Pressure [Activity] Blood Pressure 119/70 131/71 H 128/65 [Left Brachial artery] Blood Pressure [Supine] O2 Saturation 97 98 99 02/04/19 02/04/19 02/04/19 08:00 09:00 10:00 Temperature 36.7 C Heart Rate [ Activity] Heart Rate [ 80 85 81 Monitoring electrodes] Heart Rate [ Supine] Respiratory 24 22 23 Rate Blood Pressure [Activity] Blood Pressure 131/72 H 117/60 121/56 L [Left Brachial artery] Blood Pressure [Supine] O2 Saturation 100 98 91 L 02/04/19 02/04/19 02/04/19 10:25 11:00 12:00 Temperature Heart Rate [ 81 Activity] Heart Rate [ 85 80 Monitoring electrodes] Heart Rate [ 83 Supine] Respiratory 26 H 29 H Rate Blood Pressure 118/76 [Activity] Blood Pressure 108/61 115/58 L [Left Brachial artery] Blood Pressure 120/62 [Supine] O2 Saturation 99 93 02/04/19 02/04/19 02/04/19 13:00 14:00 14:24 Temperature Heart Rate [ 84 Activity] Heart Rate [ 83 84 Monitoring electrodes] Heart Rate [ Supine] Respiratory 22 19 Rate Blood Pressure 114/55 L [Activity] Blood Pressure 115/71 114/55 L [Left Brachial artery] Blood Pressure [Supine] O2 Saturation 99 97 02/04/19 15:00 Temperature Heart Rate [ Activity] Heart Rate [ 84 Monitoring electrodes] Heart Rate [ Supine] Respiratory 22 Rate Blood Pressure [Activity] Blood Pressure 127/63 [Left Brachial artery] Blood Pressure [Supine] O2 Saturation 93 Oxygen O2 Source [Without Activity] Oxymizer O2 Source Nasal cannula Oxygen Flow Rate 4 I&O (Last 24 Hrs): Intake and Output Totals x24h 02/02/19 02/03/19 02/04/19 23:59 23:59 23:59 Intake Total 1600 800 320 Output Total 1438 6128 1390 Balance 162 1128 -1070 General: Alert, Cooperative, Mild distress Neuro: Alert Cardiovascular: Regular rate, No murmurs, Gallops, Rubs Respiratory: Other (decreased breath sounds left base, ow clear) Abdomen: Soft, No tenderness, No hepatospenomegaly, No masses, Other (obese) Extremities: Other (2+ pretibial edema bilat) - Results Results: Laboratory Results WBC 3.7 x10^3/uL (4.8-10.8) L 02/03/19 04:10 RBC 3.22 10^6/uL (4.70-6.10) L 02/03/19 04:10 Hgb 10.4 g/dL (14.0-18.0) L 02/03/19 04:10 Hct 34.2 % (42.0-52.0) L 02/03/19 04:10 MCV 106.2 fL (80.0-94.0) H 02/03/19 04:10 MCH 32.3 pg (27.0-31.0) H 02/03/19 04:10 MCHC 30.4 g/dL (32.0-36.0) L 02/03/19 04:10 RDW 13.2 % (12.0-15.0) 02/03/19 04:10 Plt Count 124 10^3/uL (130-450) L 02/03/19 04:10 MPV 9.9 fL (7.4-11.4) 02/03/19 04:10 Neut # (Auto) 2.8 10^3/uL (1.5-6.6) 02/03/19 04:10 Lymph # (Auto) 0.3 10^3/uL (1.5-3.5) L 02/03/19 04:10 [place] # (Auto) 0.5 10^3/uL (0.0-1.0) 02/03/19 04:10 Eos # (Auto) 0.0 10^3/uL (0.0-0.7) 02/03/19 04:10 Baso # (Auto) 0.0 10^3/uL (0.0-0.1) 02/03/19 04:10 Absolute Nucleated RBC 0.00 x10^3/uL 02/03/19 04:10 Nucleated RBC % 0.0 /100WBC 02/03/19 04:10 PT 14.1 secs (9.9-12.6) H 02/03/19 09:00 INR 1.3 (0.8-1.2) H 02/03/19 09:00 Anti-Xa Level 0.0 U/mL (-0.7) 02/03/19 09:00 Bld Gas Analysis Time 08:55 02/02/19 08:55 Sample Site LEFT RADIAL 02/02/19 08:55 ABG pH 7.30 (7.35-7.45) L 02/02/19 08:55 ABG pCO2 84 mmHg (34-45) H* 02/02/19 08:55 ABG pO2 86 mmHg (80-100) 02/02/19 08:55 ABG HCO3 40.5 mmol/L (22.0-26.0) H 02/02/19 08:55 ABG Total CO2 43.0 MMOL/L (21.0-29.0) H* 02/02/19 08:55 ABG O2 Saturation 97 % (94-98) 02/02/19 08:55 ABG Base Excess 11.0 mmol/L (-2.0-3.0) H 02/02/19 08:55 Jez Test POSITIVE 02/02/19 08:55 O2 Delivery Device BiPAP 02/02/19 08:55 O2 Liters/Min 3.00 LPM 02/02/19 06:45 FiO2 35.00 02/02/19 08:55 EPAP 6 cmH2O 02/02/19 08:55 IPAP 18 cmH2O 02/02/19 08:55 Sodium 142 mmol/L (135-145) 02/04/19 07:18 Potassium 4.5 mmol/L (3.5-5.0) 02/04/19 07:18 Chloride 92 mmol/L (101-111) L 02/04/19 07:18 Carbon Dioxide 40 mmol/L (21-32) H* 02/04/19 07:18 Anion Gap 10.0 (6-13) 02/04/19 07:18 BUN 26 mg/dL (6-20) H 02/04/19 07:18 Creatinine 0.9 mg/dL (0.6-1.2) 02/04/19 07:18 Estimated GFR (MDRD) 80 (>89) L 02/04/19 07:18 Glucose 129 mg/dL (70-100) H 02/04/19 07:18 Calcium 8.5 mg/dL (8.5-10.3) 02/04/19 07:18 Phosphorus 3.8 mg/dL (2.5-4.6) 02/01/19 05:06 Magnesium 2.1 mg/dL (1.7-2.8) 02/02/19 05:15 Iron 34 ug/dL (45-182) L 02/04/19 07:18 TIBC 218 ug/dL (250-450) L 02/04/19 07:18 % Saturation 16 % (20-50) L 02/04/19 07:18 Transferrin 156 mg/dL (180-329) L 02/04/19 07:18 Total Bilirubin 1.1 mg/dL (0.2-1.0) H 01/31/19 22:00 AST 12 IU/L (10-42) 01/31/19 22:00 ALT < 10 IU/L (10-60) L 01/31/19 22:00 Alkaline Phosphatase 74 IU/L (42-121) 01/31/19 22:00 Troponin I 0.07 ng/mL (<0.49) 02/04/19 07:18 B-Natriuretic Peptide 1062 pg/mL (5-100) H 02/04/19 07:18 Total Protein 7.1 g/dL (6.7-8.2) 01/31/19 22:00 Albumin 3.2 g/dL (3.2-5.5) 01/31/19 22:00 Globulin 3.9 g/dL (2.1-4.2) 01/31/19 22:00 Albumin/Globulin Ratio 0.8 (1.0-2.2) L 01/31/19 22:00 Lipase 20 U/L (22-51) L 01/31/19 22:00 Vitamin B12 250 pg/mL (180-914) 02/04/19 07:18 Folate 8.53 ng/mL (5.90 - >24.8) 02/04/19 07:18 TSH 1.30 uIU/mL (0.34-5.60) 02/04/19 07:18 Urine Color DARK YELLOW 01/31/19 22:25 Urine Clarity CLEAR (CLEAR) 01/31/19 22:25 Urine pH 6.0 PH (5.0-7.5) 01/31/19 22:25 Ur Specific [place] 1.020 (1.002-1.030) 01/31/19 22:25 Urine Protein 100 mg/dL (NEGATIVE) H 01/31/19 22:25 Urine Glucose (UA) NEGATIVE mg/dL (NEGATIVE) 01/31/19 22:25 Urine Ketones NEGATIVE mg/dL (NEGATIVE) 01/31/19 22:25 Urine Occult Blood LARGE (NEGATIVE) H 01/31/19 22:25 Urine Nitrite NEGATIVE (NEGATIVE) 01/31/19 22:25 Urine Bilirubin NEGATIVE (NEGATIVE) 01/31/19 22:25 Urine Urobilinogen 2 E.U./dL (NORMAL) H 01/31/19 22:25 Ur Leukocyte Esterase NEGATIVE (NEGATIVE) 01/31/19 22:25 Urine RBC TNTC /HPF (0-5) H 01/31/19 22:25 Urine WBC 0-3 /HPF (0-3) 01/31/19 22:25 Ur Squamous Epith Cells FEW Squamous (<= Few) 01/31/19 22:25 Urine Bacteria None Seen /HPF (None Seen) 01/31/19 22:25 Urine Mucus Marked Strands 01/31/19 22:25 Ur Microscopic Review INDICATED 01/31/19 22:25 Urine Culture Comments NOT INDICATED 01/31/19 22:25 Fluid Source PLEURAL 02/03/19 12:50 Fluid Color BLOODY 02/03/19 12:50 Fluid Clarity HAZY 02/03/19 12:50 Fluid WBC 32 /mm^3 02/03/19 12:50 Fluid RBC 38522 /mm^3 02/03/19 12:50 Fluid Neutrophils % 48 % 02/03/19 12:50 Fluid Lymphocytes % 40 02/03/19 12:50 Fluid Monocytes % 10 % 02/03/19 12:50 Fluid Eosinophils % 2 % 02/03/19 12:50 Fld Mesothelial Cell % 0 % 02/03/19 12:50 Nasal Screen MRSA (PCR) NEGATIVE (NEGATIVE) 02/02/19 08:45 - Procedures Procedures: Procedures EXCISION OF RECTUM, ENDO (08/05/18) ABX Reporting Has patient been on IV antibiotics over the past 48 hours?: No
[2019-02-04] MEDS: FERROUS GLUCONATE 324 MG TABLET PO SCH (16:19)
--- NOTE | 2019-02-04 16:46 | ADVANCE CARE PLANNING NOTE ---
Advance Care Planning - Date/Time Date: 02/04/19 Time: 14:00 - Purpose of encounter Text: To determine how aggressively to proceed with his care, to update the family on his progress, to determine if and where he would go to PT rehab. - Parties in attendance Parties in attendance: This Hospitalist spoke to the patient's , 2 daughters, a son, and [id number]. We spoke in an area away from his room. - Decisional capacity Decisional capacity of: The patient makes all his own decisions but I witnessed earlier today that the patient was "waving us off" from his room, saying that he was getting to much information. The PT eval recommended SNF for Rehab, but 2 daughters believe he would get psychotic there, the [id number] felt he should go to a SNF since he would get PT daily that way. - Subjective/Patient's story Subjective/Patient's story: The patient has a chronic pleural effusion, he has required 7 thoracenteses and 2 chest tubes, this second 1 is now occluded and about to be removed. He presented with congestive heart failure and had pleural effusions, pulmonary edema, ascites and leg edema. The patient was confused and considered delirious last night, this is probably related to hypoxia and lethargy. He has a history of sleep apnea, device was delivered to his house just several weeks ago and bec ause it is a full facemask, he does not feel comfortable with it and has not been using it. - Objective/Medical story Objective/Medical Story: This is an 88-year-old white male with a history of sleep apnea, noncompliant with CPAP, chronic systolic heart failure with acute exacerbation this admission with anasarca, new onset of A. fib 2 days ago, and PTSD according to what one daughter tells me today. No other daughter reports that when she was 20 her father was so psychotic that it was scary. His reports that 1 of his best friends was killed by decapitation in the war. Her daughter reports that because of PTSD he now qualifies for getting into a psychologist without a long wait period. The entire family reports that "he will not listen to them when they suggest something". For example, he will not take a walk for strengthening/physical therapy unless it is guided by a stranger. He refused to get out of bed for his daughter today but as soon as the nurse walked in the room he completely cooperated and stood up out of bed on his own. PT evaluation recommended SNF for rehab, the [id number] thinks he would benefit, 2 daughters think that he would get depressed or even psychotic because of his PTSD, by being and not no other foreign location in a strange bed. Patient wants to feel comfortable, not short of breath but is willing to try different CPAP devices. This was arranged by having RT call his CPAP supplier. Patient is aware that he is becoming sicker as time goes on and weaker along with this. Neither he nor the family have requested palliative care or hospice care. - Goals of Care Goals of care determinations: 1) Because the patient does make his own decisions, he will have to choose whether he will go home with Home Health with a RN abnd Bath Aide and PT at his house, about 3 times a week ,or be transferred from here to a SNF with daily PT. 2) His medications will be adjusted for more aggressive management of the CHF including two additional diuretics, treatment of new iron-deficiency anemia. 3) A daughter already has an appointment with psychologist scheduled for the patient. 4) The reports that his PCP appointment is already scheduled to occur 6 days from today. 5) The agrees to have caregivers come to the home. The family request that the social work administrator speak to them today and provide more details about obtaining caregiving help. - Plan Plan: 1) He will remain a DNR, a POLST was filled out earlier this year. 2) Possible discharge tomorrow, tbd either home or to SNF. 3) I will reorder social work to assist with information/setting up caregivers for the home. - Code Status Code Status: Do Not Attempt Resuscitation - Time Spent on Advance Care Planning Time spent on advance care plannin min
[2019-02-04] MEDS: traZODone 50 MG TABLET PO SCH (21:46)
[2019-02-05 05:05] LABS: CALCIUM 8.6 mg/dL (8.5-10.3); CREATININE 0.8 mg/dL (0.6-1.2)
[2019-02-05] MEDS: SODIUM CHLORIDE FLUSH 0.9% 10 ML SYRINGE IVP SCH ×3 (06:31→17:28)
--- NOTE | 2019-02-05 06:59 | ANESTHESIA ---
Pre-Anesthesia VS, & Labs - Diagnosis Diagnosis Non functional pleural drain. blocked pleurovac drain - Procedure pleurovac removal Vital Signs: Temp Pulse Resp BP Pulse Ox 36.5 C 88 29 H 129/72 96 02/05/19 04:49 02/05/19 04:49 02/05/19 04:49 02/05/19 04:49 02/05/19 04:49 Height 6 ft Weight (kg) 109 kg Body Mass Index 32.8 - NPO >8 hours - Lab Results Current Lab Results: Laboratory Tests 02/05/19 04:43: Sodium 140, Potassium 4.7, Chloride 91 L, Carbon Dioxide 38 H, Anion Gap 11.0, BUN 26 H, Creatinine 0.8, Estimated GFR (MDRD) 92, Glucose 135 H , Calcium 8.6 02/04/19 07:18: Iron 34 L, TIBC 218 L, % Saturation 16 L, Transferrin 156 L 02/04/19 07:18: Vitamin B12 250, Folate 8.53, TSH 1.30 02/04/19 07:18: Troponin I 0.07 02/04/19 07:18: B-Natriuretic Peptide 1062 H 02/04/19 07:18: Sodium 142, Potassium 4.5, Chloride 92 L, Carbon Dioxide 40 H*, Anion Gap 10.0, BUN 26 H, Creatinine 0.9, Estimated GFR (MDRD) 80 L, Glucose 129 H, Calcium 8.5 02/03/19 09:00: Anti-Xa Level 0.0 02/03/19 09:00: PT 14.1 H, INR 1.3 H 02/03/19 04:10: B-Natriuretic Peptide 668 H 02/03/19 04:10: Sodium 142, Potassium 4.4, Chloride 96 L, Carbon Dioxide 38 H, Anion Gap 8.0, BUN 26 H, Creatinine 1.0, Estimated GFR (MDRD) 71 L, Glucose 107 H, Calcium 8.2 L 02/03/19 04:10: WBC 3.7 L, RBC 3.22 L, Hgb 10.4 L, Hct 34.2 L, MCV 106.2 H, MCH 32.3 H, MCHC 30.4 L, RDW 13.2, Plt Count 124 L, MPV 9.9, Neut # (Auto) 2.8, Lymph # (Auto) 0.3 L, [place] # (Auto) 0.5, Eos # (Auto) 0.0, Baso # (Auto) 0.0, Absolute Nucleated RBC 0.00, Nucleated RBC % 0.0 02/02/19 08:55: Bld Gas Analysis Time 08:55, Sample Site LEFT RADIAL, ABG pH 7.30 L, ABG pCO2 84 H*, ABG pO2 86, ABG HCO3 40.5 H, ABG Total CO2 43.0 H*, ABG O2 Saturation 97, ABG Base Excess 11.0 H, Jez Test POSITIVE, O2 Delivery Device BiPAP, FiO2 35.00, EPAP 6, IPAP 18 02/02/19 06:45: Bld Gas Analysis Time 0652, Sample Site LEFT RADIAL, ABG pH 7.15 L*, ABG pCO2 133 H*, ABG pO2 82, ABG HCO3 44.8 H, ABG Total CO2 48.9 H*, ABG O2 Saturation 95, ABG Base Excess 11.0 H, Jez Test POSITIVE, O2 Delivery Device NASAL CANNULA, O2 Liters/Min 3.00 02/02/19 05:15: Sodium 146 H, Potassium 4.8, Chloride 97 L, Carbon Dioxide 39 H* , Anion Gap 10.0, BUN 20, Creatinine 0.9, Estimated GFR (MDRD) 80 L, Glucose 126 H, Calcium 8.7, Magnesium 2.1 02/02/19 05:15: WBC 4.9, RBC 3.52 L, Hgb 11.5 L, Hct 38.7 L, MCV 109.9 H, MCH 32.7 H, MCHC 29.7 L, RDW 13.3, Plt Count 135, MPV 9.6, Neut # (Auto) 3.9, Lymph # (Auto) 0.2 L, [place] # (Auto) 0.7, Eos # (Auto) 0.0, Baso # (Auto) 0.0, Absolute Nucleated RBC 0.00, Nucleated RBC % 0.0 02/01/19 05:06: Phosphorus 3.8 02/01/19 04:50: Sodium 145, Potassium 4.3, Chloride 99 L, Carbon Dioxide 35 H, Anion Gap 11.0, BUN 20, Creatinine 0.8, Estimated GFR (MDRD) 92, Glucose 132 H, Calcium 8.7, Magnesium 2.1 02/01/19 04:50: WBC 3.7 L, RBC 3.57 L, Hgb 11.3 L, Hct 38.0 L, MCV 106.4 H, MCH 31.7 H, MCHC 29.7 L, RDW 13.3, Plt Count 145, MPV 9.4, Neut # (Auto) 2.9, Lymph # (Auto) 0.2 L, [place] # (Auto) 0.6, Eos # (Auto) 0.0, Baso # (Auto) 0.0, Absolute Nucleated RBC 0.00, Nucleated RBC % 0.0 02/01/19 04:50: Troponin I 0.06 01/31/19 22:00: Troponin I 0.05 01/31/19 22:00: B-Natriuretic Peptide 1413 H 01/31/19 22:00: Sodium 143, Potassium 4.4, Chloride 99 L, Carbon Dioxide 33 H, Anion Gap 11.0, BUN 21 H, Creatinine 0.8, Estimated GFR (MDRD) 92, Glucose 128 H , Calcium 8.8, Total Bilirubin 1.1 H, AST 12, ALT < 10 L, Alkaline Phosphatase 74, Total Protein 7.1, Albumin 3.2, Globulin 3.9, Albumin/Globulin Ratio 0.8 L, Lipase 20 L 01/31/19 22:00: WBC 4.8, RBC 3.31 L, Hgb 10.4 L, Hct 35.5 L, MCV 107.3 H, MCH 31.4 H, MCHC 29.3 L, RDW 13.5, Plt Count 137, MPV 10.2, Neut # (Auto) 3.9, Lymph # (Auto) 0.3 L, [place] # (Auto) 0.6, Eos # (Auto) 0.0, Baso # (Auto) 0.0, Absolute Nucleated RBC 0.00, Nucleated RBC % 0.0 Fish Bones: 02/03/19 04:10 02/05/19 04:43 Home Medications and Allergies Active Medications Acetaminophen (Tylenol) 650 mg PO Q6HR PRN PRN Reason: Pain 1 to 4 Carvedilol (Coreg) 12.5 mg PO BID HOMER Last Admin: 02/04/19 21:46 Dose: 12.5 mg Docusate Sodium (Colace 250mg Capsule) 250 - 500 mg PO DAILY [facility] Last Admin: 02/04/19 08:14 Dose: 250 mg Eplerenone (Inspra) 25 mg PO DAILY [facility] Last Admin: 02/04/19 11:20 Dose: 25 mg Ferrous Gluconate (Fergon) 324 mg PO DAILYWM [facility] Last Admin: 02/04/19 16:19 Dose: 324 mg Furosemide (Lasix Inj 40 Mg Vial) 40 mg IVP 0800 [facility] Heparin Sodium (Porcine) () 5,000 unit SUBQ BID [facility] Last Admin: 02/04/19 21:46 Dose: 5,000 unit Lisinopril (Zestril) 20 mg PO DAILY [facility] Metolazone (Zaroxolyn) 2.5 mg PO DAILY [facility] Last Admin: 02/04/19 10:58 Dose: Not Given Morphine Sulfate (Morphine (Carpuject)) 2 mg IVP Q2H PRN PRN Reason: Dyspnea Last Admin: 02/03/19 21:14 Dose: 2 mg Nystatin (Nystop) 1 applic TOP BID [facility] Last Admin: 02/04/19 21:46 Dose: 1 applic Polyethylene Glycol (Miralax) 17 gm PO DAILY [facility] Last Admin: 02/04/19 08:15 Dose: 17 gm Potassium Chloride (K-Dur) 20 meq PO DAILYWM [facility] Last Admin: 02/04/19 08:12 Dose: 20 meq Senna (Senokot) 8.6 - 17.2 mg PO DAILY [facility] Last Admin: 02/04/19 08:15 Dose: 8.6 mg Sodium Chloride (Normal Saline Flush 0.9%) 10 ml IVP PRN PRN PRN Reason: NEEDED PER PROVIDER ORDERS Last Admin: 02/04/19 06:05 Dose: 10 ml Sodium Chloride (Normal Saline Flush 0.9%) 10 ml IVP 0100,0900,1700 [facility] Last Admin: 02/05/19 06:31 Dose: 10 ml Trazodone HCl (Desyrel) 50 mg PO QPM [facility] Last Admin: 02/04/19 21:46 Dose: 50 mg Zinc Oxide (Desitin) 1 gm TOP PRN PRN PRN Reason: Skin Care Last Admin: 02/02/19 00:27 Dose: 1 applic Aspirin [Aspir 81] 81 mg PO DAILY 02/23/14 Carvedilol [Coreg] 25 mg PO BID 02/23/14 Lisinopril 40 mg PO DAILY 02/23/14 Multivitamin [Multivitamins] 1 each PO DAILY 02/23/14 Chlorhexidine Gluconate 15 ml MM DAILY 11/03/18 Potassium Chloride 10 meq PO BID 11/03/18 Trazodone HCl 50 mg PO QPM 11/03/18 Allergies/Adverse Reactions: Allergies Allergy/AdvReac Type Severity Reaction Status Date / Time adhesive Allergy Rash Verified 01/31/19 21:27 atorvastatin calcium * Allergy Unknown Verified 01/31/19 21:27 [From Lipitor] bupropion Allergy Unknown Verified 01/31/19 21:27 hydralazine Allergy Unknown Verified 01/31/19 21:27 propoxyphene HCl * Allergy Unknown Verified 01/31/19 21:27 [From Darvon] spironolactone Allergy Unknown Verified 01/31/19 21:27 [From Aldactone] sulfamethoxazole Allergy Unknown Verified 01/31/19 21:27 [From Bactrim] tamsulosin [From Flomax] Allergy Unknown Verified 01/31/19 21:27 trimethoprim [From Bactrim] Allergy Unknown Verified 01/31/19 21:27 Anes History & Medical History - Anesthetic History Anesthesia Complications: reports: No previous complications - Medical History Cardiovascular: reports: Congestive heart failure, Hypertension Pulmonary: reports: Shortness of breath Gastrointestinal: reports: GI bleed, Colon polyps Urinary: reports: None Neuro: reports: None Musculoskeletal: reports: Chronic back pain Endocrine/Autoimmune: reports: None Blood Disorders: reports: None Skin: reports: Other Smoking Status: Never smoker Other Past Medical History: L lung catheter in place - Surgical History General: Cholecystectomy Eyes Ears Nose Throat (EENT): Tonsil/Adenoidectomy, Other Cardiothoracic: Coronary stent Orthopedic: Knee replacement Exam General: Alert Dental: WNL Mouth Opening: Greater than 4 Fingerbreadths Mallampati classification: II Thyromental Distance: greater than 6 cm Respiratory: Decreased breath sounds (absent on left base) Cardiovascular: Regular rate, Normal S1, Normal S2 Mental/Cognitive Status: Alert/Oriented X3 Plan Anesthesia Type: MAC Consent for Procedure(s) Verified and Reviewed: Yes Code Status: Do Not Attempt Resuscitation ASA classification: 3-Severe systemic disease Is this case an emergency?: No
[2019-02-05] MEDS: FUROSEMIDE 40 MG/4 ML VIAL IVP SCH (08:04)
--- NOTE | 2019-02-05 08:25 | PROVIDER PROGRESS NOTE ---
Assessment/Plan - Problem List (1) Chronic pleural effusion Assessment/Plan: Non functioning pleural catheter, symptomatic. Plan: removal today. - Current Meds Current Meds: Current Medications Generic Name Dose Route Start Last Admin Trade Name Freq PRN Reason Stop Dose Admin Carvedilol 12.5 mg 02/01/19 09:00 02/04/19 21:46 Coreg PO 12.5 mg BID HOMER Administration Docusate Sodium 250 - 500 mg 02/04/19 09:00 02/04/19 08:14 Colace 250mg Capsule PO 250 mg DAILY HOMER Administration Eplerenone 25 mg 02/04/19 10:00 02/04/19 11:20 Inspra PO 25 mg DAILY HOMER Administration Ferrous Gluconate 324 mg 02/04/19 14:00 02/04/19 16:19 Fergon PO 324 mg DAILYWM HOMER Administration Furosemide 40 mg 02/05/19 08:00 02/05/19 08:04 Lasix Inj 40 Mg Vial IVP 40 mg 0800 HOMER Administration Heparin Sodium (Porcine) 5,000 unit 02/01/19 09:00 02/04/19 21:46 SUBQ 5,000 unit BID HOMER Administration Morphine Sulfate 2 mg 02/03/19 10:12 02/03/19 21:14 Morphine (Carpuject) IVP 2 mg Q2H PRN Administration Dyspnea Nystatin 1 applic 02/04/19 09:00 02/04/19 21:46 Nystop TOP 1 applic BID HOMER Administration Polyethylene Glycol 17 gm 02/03/19 10:00 02/04/19 08:15 Miralax PO 17 gm DAILY HOMER Administration Potassium Chloride 20 meq 02/01/19 08:00 02/04/19 08:12 K-Dur PO 20 meq DAILYWM HOMER Administration Senna 8.6 - 17.2 mg 02/04/19 09:00 02/04/19 08:15 Senokot PO 8.6 mg DAILY HOMER Administration Sodium Chloride 10 ml 01/31/19 23:53 02/04/19 06:05 Normal Saline Flush 0.9% IVP 10 ml PRN PRN Administration NEEDED PER PROVIDER ORDERS Sodium Chloride 10 ml 02/01/19 01:00 02/05/19 06:31 Normal Saline Flush 0.9% IVP 10 ml 0100,0900,1700 HOMER Administration Trazodone HCl 50 mg 02/03/19 21:00 02/04/19 21:46 Desyrel PO 50 mg QPM HOMER Administration Zinc Oxide 1 gm 02/01/19 12:56 02/02/19 00:27 Desitin TOP 1 applic PRN PRN Administration Skin Care - Lab Result Lab results reviewed: Yes Fish Bone Diagrams: 02/03/19 04:10 02/05/19 04:43 - Additional Planning Condition/Complexity: Guarded (but stable at present) My Orders: My Active Orders 02/05/19 00:01 NPO except Meds at Midnight [DIET] Subjective - Subjective Patient Reports: Chest Pain (at pleural cathether site unchanged; wants catheter removed.) Objective Vital Signs: Vital Signs - 24 hr 02/04/19 02/04/19 02/04/19 09:00 10:00 10:25 Temperature Heart Rate [ 81 Activity] Heart Rate [ 85 81 Monitoring electrodes] Heart Rate [ 83 Supine] Respiratory 22 23 Rate Blood Pressure 118/76 [Activity] Blood Pressure 117/60 121/56 L [Left Brachial artery] Blood Pressure 120/62 [Supine] O2 Saturation 98 91 L 02/04/19 02/04/19 02/04/19 11:00 12:00 13:00 Temperature Heart Rate [ Activity] Heart Rate [ 85 80 83 Monitoring electrodes] Heart Rate [ Supine] Respiratory 26 H 29 H 22 Rate Blood Pressure [Activity] Blood Pressure 108/61 115/58 L 115/71 [Left Brachial artery] Blood Pressure [Supine] O2 Saturation 99 93 99 02/04/19 02/04/19 02/04/19 14:00 14:24 15:00 Temperature Heart Rate [ 84 Activity] Heart Rate [ 84 84 Monitoring electrodes] Heart Rate [ Supine] Respiratory 19 22 Rate Blood Pressure 114/55 L [Activity] Blood Pressure 114/55 L 127/63 [Left Brachial artery] Blood Pressure [Supine] O2 Saturation 97 93 02/04/19 02/04/19 02/04/19 16:00 17:00 18:02 Temperature 36.6 C Heart Rate [ Activity] Heart Rate [ 86 91 97 Monitoring electrodes] Heart Rate [ Supine] Respiratory 19 24 18 Rate Blood Pressure [Activity] Blood Pressure 103/63 111/67 128/60 [Left Brachial artery] Blood Pressure [Supine] O2 Saturation 99 99 98 02/04/19 02/04/19 02/04/19 19:28 21:30 23:53 Temperature 36.5 C 97.7 C H Heart Rate [ Activity] Heart Rate [ 83 88 Monitoring electrodes] Heart Rate [ Supine] Respiratory 28 H 24 Rate Blood Pressure [Activity] Blood Pressure 116/76 127/84 H [Left Brachial artery] Blood Pressure [Supine] O2 Saturation 96 98 02/05/19 02/05/19 02/05/19 01:00 04:49 08:10 Temperature 36.5 C Heart Rate [ Activity] Heart Rate [ 79 88 87 Monitoring electrodes] Heart Rate [ Supine] Respiratory 24 29 H 31 H Rate Blood Pressure [Activity] Blood Pressure 125/84 H 129/72 121/73 [Left Brachial artery] Blood Pressure [Supine] O2 Saturation 96 96 100 Oxygen O2 Source [Without Activity] Oxymizer O2 Source Nasal cannula Oxygen Flow Rate 4 I&O (Last 24 Hrs): Intake and Output Totals x24h 02/03/19 02/04/19 02/05/19 23:59 23:59 23:59 Intake Total 800 740 300 Output Total 5058 1615 440 Balance -1128 -875 -140 General: Alert, Cooperative, Mild distress - Results Results: Laboratory Results WBC 3.7 x10^3/uL (4.8-10.8) L 02/03/19 04:10 RBC 3.22 10^6/uL (4.70-6.10) L 02/03/19 04:10 Hgb 10.4 g/dL (14.0-18.0) L 02/03/19 04:10 Hct 34.2 % (42.0-52.0) L 02/03/19 04:10 MCV 106.2 fL (80.0-94.0) H 02/03/19 04:10 MCH 32.3 pg (27.0-31.0) H 02/03/19 04:10 MCHC 30.4 g/dL (32.0-36.0) L 02/03/19 04:10 RDW 13.2 % (12.0-15.0) 02/03/19 04:10 Plt Count 124 10^3/uL (130-450) L 02/03/19 04:10 MPV 9.9 fL (7.4-11.4) 02/03/19 04:10 Neut # (Auto) 2.8 10^3/uL (1.5-6.6) 02/03/19 04:10 Lymph # (Auto) 0.3 10^3/uL (1.5-3.5) L 02/03/19 04:10 Towner # (Auto) 0.5 10^3/uL (0.0-1.0) 02/03/19 04:10 Eos # (Auto) 0.0 10^3/uL (0.0-0.7) 02/03/19 04:10 Baso # (Auto) 0.0 10^3/uL (0.0-0.1) 02/03/19 04:10 Absolute Nucleated RBC 0.00 x10^3/uL 02/03/19 04:10 Nucleated RBC % 0.0 /100WBC 02/03/19 04:10 PT 14.1 secs (9.9-12.6) H 02/03/19 09:00 INR 1.3 (0.8-1.2) H 02/03/19 09:00 Anti-Xa Level 0.0 U/mL (-0.7) 02/03/19 09:00 Bld Gas Analysis Time 08:55 02/02/19 08:55 Sample Site LEFT RADIAL 02/02/19 08:55 ABG pH 7.30 (7.35-7.45) L 02/02/19 08:55 ABG pCO2 84 mmHg (34-45) H* 02/02/19 08:55 ABG pO2 86 mmHg (80-100) 02/02/19 08:55 ABG HCO3 40.5 mmol/L (22.0-26.0) H 02/02/19 08:55 ABG Total CO2 43.0 MMOL/L (21.0-29.0) H* 02/02/19 08:55 ABG O2 Saturation 97 % (94-98) 02/02/19 08:55 ABG Base Excess 11.0 mmol/L (-2.0-3.0) H 02/02/19 08:55 Jez Test POSITIVE 02/02/19 08:55 O2 Delivery Device BiPAP 02/02/19 08:55 O2 Liters/Min 3.00 LPM 02/02/19 06:45 FiO2 35.00 02/02/19 08:55 EPAP 6 cmH2O 02/02/19 08:55 IPAP 18 cmH2O 02/02/19 08:55 Sodium 140 mmol/L (135-145) 02/05/19 04:43 Potassium 4.7 mmol/L (3.5-5.0) 02/05/19 04:43 Chloride 91 mmol/L (101-111) L 02/05/19 04:43 Carbon Dioxide 38 mmol/L (21-32) H 02/05/19 04:43 Anion Gap 11.0 (6-13) 02/05/19 04:43 BUN 26 mg/dL (6-20) H 02/05/19 04:43 Creatinine 0.8 mg/dL (0.6-1.2) 02/05/19 04:43 Estimated GFR (MDRD) 92 (>89) 02/05/19 04:43 Glucose 135 mg/dL (70-100) H 02/05/19 04:43 Calcium 8.6 mg/dL (8.5-10.3) 02/05/19 04:43 Phosphorus 3.8 mg/dL (2.5-4.6) 02/01/19 05:06 Magnesium 2.1 mg/dL (1.7-2.8) 02/02/19 05:15 Iron 34 ug/dL (45-182) L 02/04/19 07:18 TIBC 218 ug/dL (250-450) L 02/04/19 07:18 % Saturation 16 % (20-50) L 02/04/19 07:18 Transferrin 156 mg/dL (180-329) L 02/04/19 07:18 Total Bilirubin 1.1 mg/dL (0.2-1.0) H 01/31/19 22:00 AST 12 IU/L (10-42) 01/31/19 22:00 ALT < 10 IU/L (10-60) L 01/31/19 22:00 Alkaline Phosphatase 74 IU/L (42-121) 01/31/19 22:00 Troponin I 0.07 ng/mL (<0.49) 02/04/19 07:18 B-Natriuretic Peptide 1062 pg/mL (5-100) H 02/04/19 07:18 Total Protein 7.1 g/dL (6.7-8.2) 01/31/19 22:00 Albumin 3.2 g/dL (3.2-5.5) 01/31/19 22:00 Globulin 3.9 g/dL (2.1-4.2) 01/31/19 22:00 Albumin/Globulin Ratio 0.8 (1.0-2.2) L 01/31/19 22:00 Lipase 20 U/L (22-51) L 01/31/19 22:00 Vitamin B12 250 pg/mL (180-914) 02/04/19 07:18 Folate 8.53 ng/mL (5.90 - >24.8) 02/04/19 07:18 TSH 1.30 uIU/mL (0.34-5.60) 02/04/19 07:18 Urine Color DARK YELLOW 01/31/19 22:25 Urine Clarity CLEAR (CLEAR) 01/31/19 22:25 Urine pH 6.0 PH (5.0-7.5) 01/31/19 22:25 Ur Specific [place] 1.020 (1.002-1.030) 01/31/19 22:25 Urine Protein 100 mg/dL (NEGATIVE) H 01/31/19 22:25 Urine Glucose (UA) NEGATIVE mg/dL (NEGATIVE) 01/31/19 22:25 Urine Ketones NEGATIVE mg/dL (NEGATIVE) 01/31/19 22:25 Urine Occult Blood LARGE (NEGATIVE) H 01/31/19 22:25 Urine Nitrite NEGATIVE (NEGATIVE) 01/31/19 22:25 Urine Bilirubin NEGATIVE (NEGATIVE) 01/31/19 22:25 Urine Urobilinogen 2 E.U./dL (NORMAL) H 01/31/19 22:25 Ur Leukocyte Esterase NEGATIVE (NEGATIVE) 01/31/19 22:25 Urine RBC TNTC /HPF (0-5) H 01/31/19 22:25 Urine WBC 0-3 /HPF (0-3) 01/31/19 22:25 Ur Squamous Epith Cells FEW Squamous (<= Few) 01/31/19 22:25 Urine Bacteria None Seen /HPF (None Seen) 01/31/19 22:25 Urine Mucus Marked Strands 01/31/19 22:25 Ur Microscopic Review INDICATED 01/31/19 22:25 Urine Culture Comments NOT INDICATED 01/31/19 22:25 Fluid Source PLEURAL 02/03/19 12:50 Fluid Color BLOODY 02/03/19 12:50 Fluid Clarity HAZY 02/03/19 12:50 Fluid WBC 32 /mm^3 02/03/19 12:50 Fluid RBC 95636 /mm^3 02/03/19 12:50 Fluid Neutrophils % 48 % 02/03/19 12:50 Fluid Lymphocytes % 40 02/03/19 12:50 Fluid Monocytes % 10 % 02/03/19 12:50 Fluid Eosinophils % 2 % 02/03/19 12:50 Fld Mesothelial Cell % 0 % 02/03/19 12:50 Nasal Screen MRSA (PCR) NEGATIVE (NEGATIVE) 02/02/19 08:45 - Procedures Procedures: Procedures EXCISION OF RECTUM, ENDO (08/05/18) ABX Reporting Has patient been on IV antibiotics over the past 48 hours?: No
[2019-02-05 08:30] LABS: ABG PH 7.41 (7.35-7.45)
[2019-02-05 08:31] LABS: ABG BASE EXCESS 11.6 mmol/L (-2.0-3.0); ABG HCO3 38.6 mmol/L (22.0-26.0); ABG OXYGEN SATURATION 96 % (94-98); ABG PO2 82 mmHg (80-100); ALLEN TEST POSITIVE
[2019-02-05 08:35] LABS: ABG PCO2 63 mmHg (34-45); ABG TCO2 40.5 MMOL/L (21.0-29.0)
[2019-02-05] MEDS ORDERED: BUPIVACAINE 0.5% PF 30 ML VIAL INFIL ONE ×2 (08:48)
[2019-02-05] MEDS ORDERED: LACTATED RINGERS 1,000 ML IV ONE (08:49)
[2019-02-05] MEDS ORDERED: LIDOCAINE 1% 50 ML MDV SUBQ ONE ×2 (08:49)
--- NOTE | 2019-02-05 09:14 | OPERATIVE REPORT ---
Operative Report - General Admit Date: 02/02/19 Procedure Date: 02/05/19 Planned Procedure: Removal of tunnelled pleural catheter Pre-Op Diagnosis: Non functional pleural catheter Procedure Performed: Removal of cuffed tunneled pleural catheter Post Op Diagnosis: Non functional pleural catheter - Procedure Note Primary Surgeon: Juan Stout MD Anesthesia Provider: Yanelis Lopes CRNA Anesthesia Technique: Local, MAC Estimated Blood Loss (mL): 2 Indications: 88 yo male with nonfunctioning left tunneled cuffed pleural catheter, causing discomfort. Findings: intact cuffed tunneled pleural catheter was removed. Complications: None apparent; postprocedure CXR is pending. - Other Other Information/Narrative: After informed consent pt was taken to the OR where he was sedated and monitored by Yanelis Lopes CRNA. His left chest wall surrounding and including the external portion of the pleural catheter was prepped with Chloroprep and draped in the usual sterile fashion. 10 ml of a 50:50 combination of 1% lidocaine plain and 0.5 % bupivocaine with epi was used for local infiltration anesthesia. Sutures securing the catheter to the skin were removed. Using a hemostat the catheter was mobilized circumferentially through the catheter exit site. The cuff could not be reached from the exit site, so a 1 cm linear counter incision was made over the palpable location of the cuff, which exposed the cuff which was mobilized bluntly and sharply until freed, following which the catheter was able to be easily and completely removed and discarded. Bleeding was minimal, and a small amount of pleural fluid drained from the wound. The counter incision was closed with 4-0 Monocryl and Dermabond. A dry sterile dressing was applied to the exit site. The procedure was terminated without apparent complication. Sponge and needle counts were correct. A f/u CXR is pending at the time of this report creation. Pt tolerated the procedure well and was returned to the ICU in guarded but stable condition.
[2019-02-05] MEDS ORDERED: MIDAZOLAM 2 MG/2 ML VIAL IVP ONE (09:20)
[2019-02-05] MEDS ORDERED: fentaNYL 100 MCG/2 ML VIAL IVP ONE (09:20)
--- NOTE | 2019-02-05 09:41 | XRAY Report ---
Reason: s/p removal of pleural catheter Procedure Date: 02/05/2019 Accession Number: [id number] / [id number] Procedure: XR - Chest 1 View X-Ray CPT Code: 42713 FULL RESULT: EXAM: CHEST RADIOGRAPHY EXAM DATE: 02/05/2019 09:26 AM. CLINICAL HISTORY: S/p removal of pleural catheter. COMPARISON: CHEST 1 VIEW 02/03/2019 12:53 PM. TECHNIQUE: 1 view. FINDINGS: Lungs/Pleura: The bilateral lung apices are partially obscured by overlap with facial structures. Lung volumes are low. There are persistent small bilateral pleural effusions and patchy bilateral basilar pulmonary opacities. No pneumothorax. The previously seen left basilar pleural drain has been removed. Mediastinum: Partially obscured by pulmonary opacities. Within exam limitations, there is stable mild enlargement of the cardiomediastinal contour. Other: No acute osseous abnormality. There are degenerative changes of the partially visualized bilateral glenohumeral joints. IMPRESSION: 1. Interval removal of the previously seen left basilar pleural drain. 2. Similar appearance of small bilateral pleural effusions and bilateral basilar atelectasis or infiltrate. Lung volumes are low. 3. Stable mild cardiomegaly. RADIA
--- NOTE | 2019-02-05 10:52 | PROVIDER PROGRESS NOTE ---
Assessment/Plan - Problem List (1) Acute on chronic systolic heart failure, NYHA class 3 Assessment/Plan: A new (limited) Echo was done today, to evaluate the LVEF and PA pressure, to evaluate why he is not responding more quickly to diuresis. The Echo shows a drop in LVEF from 30-35% from 11/08 to 20-25% now and he has moderate pulm HTN (PA pressure 67 mmHg). He remains on a good dose of Carvedilol with heart rates in 60's. 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 RT Lizzeth tried his home mask and noted that is was set at a CPAP level of 5 mmHg and he desaturated while on it for 20 min. He probably feels air hunger, as well as not liking the fit of the mask. Respiratory therapy is working with Virgilio to determine a better mask and/or settings for a home device. (3) Chronic pleural effusion Assessment/Plan: 75 cc of fluid was withdrawn by thoracentesis 2 days ago. The chest x-ray post- tap showed no change in the left-sided effusion and a larger right-sided effusion. Today the nonfunctional chest tube was removed by surgery. Postoperatively, he did not awaken from his Versed anesthesia, Romazicon had to be given because he was desaturating. He is therefore not stable to be discharged today. More aggressive diuresis is planned with the addition of Eplerinone and Metolazone and continued IV Lasix (4) New onset a-fib Assessment/Plan: Heart rate is under good control on this dose of carvedilol. He is not a candidate for anti-coagulation due to his advanced age, weakness and risk of falls. He is on a daily aspirin. (5) Anemia Qualifiers: Anemia type: iron deficiency Assessment/Plan: Oral iron replacement therapy was started yesterday. A stool guiac test result is still pending. (6) Depression Assessment/Plan: He is on his at bedtime medication from home to treat this. There is also plan to see Psychology soon after discharge because of PTSD, as per his daughter. (7) Hx of coronary artery disease Assessment/Plan: Troponin value was done yesterday, this was normal. He remains on his aspirin and statin daily. (8) Hypertension Assessment/Plan: The high Zestril dose was decreased by half in order to start Eplerinone and Metolazone. His BP is under good control on present management (9) Epigastric abdominal pain Assessment/Plan: Resolved (10) Delirium due to general medical condition Assessment/Plan: Resolved and was likely Sundowning plus cerebral hypoxia from desaturating causing confusion. - Current Meds Current Meds: Current Medications Generic Name Dose Route Start Last Admin Trade Name Freq PRN Reason Stop Dose Admin Carvedilol 12.5 mg 02/01/19 09:00 02/04/19 21:46 Coreg PO 12.5 mg BID HOMER Administration Docusate Sodium 250 - 500 mg 02/04/19 09:00 02/04/19 08:14 Colace 250mg Capsule PO 250 mg DAILY HOMER Administration Eplerenone 25 mg 02/04/19 10:00 02/04/19 11:20 Inspra PO 25 mg DAILY HOMER Administration Ferrous Gluconate 324 mg 02/04/19 14:00 02/04/19 16:19 Fergon PO 324 mg DAILYWM HOMER Administration Furosemide 40 mg 02/05/19 08:00 02/05/19 08:04 Lasix Inj 40 Mg Vial IVP 40 mg 0800 HOMER Administration Heparin Sodium (Porcine) 5,000 unit 02/01/19 09:00 02/04/19 21:46 SUBQ 5,000 unit BID HOMER Administration Morphine Sulfate 2 mg 02/03/19 10:12 02/03/19 21:14 Morphine (Carpuject) IVP 2 mg Q2H PRN Administration Dyspnea Nystatin 1 applic 02/04/19 09:00 02/04/19 21:46 Nystop TOP 1 applic BID HOMER Administration Polyethylene Glycol 17 gm 02/03/19 10:00 02/04/19 08:15 Miralax PO 17 gm DAILY HOMER Administration Potassium Chloride 20 meq 02/01/19 08:00 02/04/19 08:12 K-Dur PO 20 meq DAILYWM HOMER Administration Senna 8.6 - 17.2 mg 02/04/19 09:00 02/04/19 08:15 Senokot PO 8.6 mg DAILY HOMER Administration Sodium Chloride 10 ml 01/31/19 23:53 02/04/19 06:05 Normal Saline Flush 0.9% IVP 10 ml PRN PRN Administration NEEDED PER PROVIDER ORDERS Sodium Chloride 10 ml 02/01/19 01:00 02/05/19 06:31 Normal Saline Flush 0.9% IVP 10 ml 0100,0900,1700 HOMER Administration Trazodone HCl 50 mg 02/03/19 21:00 02/04/19 21:46 Desyrel PO 50 mg QPM HOMER Administration Zinc Oxide 1 gm 02/01/19 12:56 02/02/19 00:27 Desitin TOP 1 applic PRN PRN Administration Skin Care - Lab Result Fish Bone Diagrams: 02/05/19 10:50 02/05/19 04:43 - Additional Planning My Orders: My Active Orders 02/04/19 10:00 Eplerenone [Inspra] 25 mg PO DAILY 02/04/19 14:00 Ferrous Gluconate [Fergon] 324 mg PO DAILYWM 02/04/19 16:03 Telemetry- [RC] Q4HR 02/05/19 Home Health Referral [CONS] Routine CBC - COMP BLD CT W/AUTO DIFF [HEME] Routine 02/05/19 08:00 FUROSEMIDE INJ 40mg VIAL [LASIX INJ 40 mg VIAL] 40 mg IVP 0802/05/19 09:00 Lisinopril [Zestril] 20 mg PO DAILY 02/05/19 09:21 metOLazone [Zaroxolyn] 2.5 mg PO 0800 02/05/19 Lunch DIET [Low Sodium Diet] [DIET] 02/06/19 05:00 BMP - BASIC METABOLIC PANEL [CHEM] DAILYLAB Subjective - Subjective Patient Reports: Resting Comfortably, Other (He is still sedated from anesthesia after the chest tube was removed in the operating room peer) Objective Vital Signs: Vital Signs - 24 hr 02/04/19 02/04/19 02/04/19 11:00 12:00 13:00 Temperature Heart Rate [ Activity] Heart Rate [ 85 80 83 Monitoring electrodes] Respiratory 26 H 29 H 22 Rate Blood Pressure [Activity] Blood Pressure 108/61 115/58 L 115/71 [Left Brachial artery] O2 Saturation 99 93 99 02/04/19 02/04/19 02/04/19 14:00 14:24 15:00 Temperature Heart Rate [ 84 Activity] Heart Rate [ 84 84 Monitoring electrodes] Respiratory 19 22 Rate Blood Pressure 114/55 L [Activity] Blood Pressure 114/55 L 127/63 [Left Brachial artery] O2 Saturation 97 93 02/04/19 02/04/19 02/04/19 16:00 17:00 18:02 Temperature 36.6 C Heart Rate [ Activity] Heart Rate [ 86 91 97 Monitoring electrodes] Respiratory 19 24 18 Rate Blood Pressure [Activity] Blood Pressure 103/63 111/67 128/60 [Left Brachial artery] O2 Saturation 99 99 98 02/04/19 02/04/19 02/04/19 19:28 21:30 23:53 Temperature 36.5 C 97.7 C H Heart Rate [ Activity] Heart Rate [ 83 88 Monitoring electrodes] Respiratory 28 H 24 Rate Blood Pressure [Activity] Blood Pressure 116/76 127/84 H [Left Brachial artery] O2 Saturation 96 98 02/05/19 02/05/19 02/05/19 01:00 04:49 08:10 Temperature 36.5 C Heart Rate [ Activity] Heart Rate [ 79 88 87 Monitoring electrodes] Respiratory 24 29 H 31 H Rate Blood Pressure [Activity] Blood Pressure 125/84 H 129/72 121/73 [Left Brachial artery] O2 Saturation 96 96 100 02/05/19 09:09 Temperature Heart Rate [ Activity] Heart Rate [ 88 Monitoring electrodes] Respiratory 11 L Rate Blood Pressure [Activity] Blood Pressure 132/62 H [Left Brachial artery] O2 Saturation 98 Oxygen O2 Source [Without Activity] Oxymizer O2 Source Nasal cannula Oxygen Flow Rate 4 I&O (Last 24 Hrs): Intake and Output Totals x24h 02/03/19 02/04/19 02/05/19 23:59 23:59 23:59 Intake Total 800 740 300 Output Total 4443 6796 025 [facility] -1128 -875 -480 General: Alert, Oriented x3 Neck: Supple Neuro: Non Focal Cardiovascular: No murmurs Respiratory: No respiratory distress, Other (Diminished at both bases) Abdomen: Soft Extremities: Other (Trace-1+ edema) - Results Results: Laboratory Results WBC 3.7 x10^3/uL (4.8-10.8) L 02/03/19 04:10 RBC 3.22 10^6/uL (4.70-6.10) L 02/03/19 04:10 Hgb 10.4 g/dL (14.0-18.0) L 02/03/19 04:10 Hct 34.2 % (42.0-52.0) L 02/03/19 04:10 MCV 106.2 fL (80.0-94.0) H 02/03/19 04:10 MCH 32.3 pg (27.0-31.0) H 02/03/19 04:10 MCHC 30.4 g/dL (32.0-36.0) L 02/03/19 04:10 RDW 13.2 % (12.0-15.0) 02/03/19 04:10 Plt Count 124 10^3/uL (130-450) L 02/03/19 04:10 MPV 9.9 fL (7.4-11.4) 02/03/19 04:10 Neut # (Auto) 2.8 10^3/uL (1.5-6.6) 02/03/19 04:10 Lymph # (Auto) 0.3 10^3/uL (1.5-3.5) L 02/03/19 04:10 [place] # (Auto) 0.5 10^3/uL (0.0-1.0) 02/03/19 04:10 Eos # (Auto) 0.0 10^3/uL (0.0-0.7) 02/03/19 04:10 Baso # (Auto) 0.0 10^3/uL (0.0-0.1) 02/03/19 04:10 Absolute Nucleated RBC 0.00 x10^3/uL 02/03/19 04:10 Nucleated RBC % 0.0 /100WBC 02/03/19 04:10 PT 14.1 secs (9.9-12.6) H 02/03/19 09:00 INR 1.3 (0.8-1.2) H 02/03/19 09:00 Anti-Xa Level 0.0 U/mL (-0.7) 02/03/19 09:00 Bld Gas Analysis Time 0831 02/05/19 Unknown Sample Site RIGHT RADIAL 02/05/19 Unknown ABG pH 7.41 (7.35-7.45) 02/05/19 Unknown ABG pCO2 63 mmHg (34-45) H* 02/05/19 Unknown ABG pO2 82 mmHg (80-100) 02/05/19 Unknown ABG HCO3 38.6 mmol/L (22.0-26.0) H 02/05/19 Unknown ABG Total CO2 40.5 MMOL/L (21.0-29.0) H* 02/05/19 Unknown ABG O2 Saturation 96 % (94-98) 02/05/19 Unknown ABG Oximetry Spot Check 95 % 02/05/19 Unknown ABG Base Excess 11.6 mmol/L (-2.0-3.0) H 02/05/19 Unknown Jez Test POSITIVE 02/05/19 Unknown Respiration Rate 19 b/min 02/05/19 Unknown O2 Delivery Device NASAL CANNULA 02/05/19 Unknown O2 Liters/Min 3.00 LPM 02/05/19 Unknown FiO2 35.00 02/02/19 08:55 EPAP 6 cmH2O 02/02/19 08:55 IPAP 18 cmH2O 02/02/19 08:55 Sodium 140 mmol/L (135-145) 02/05/19 04:43 Potassium 4.7 mmol/L (3.5-5.0) 02/05/19 04:43 Chloride 91 mmol/L (101-111) L 02/05/19 04:43 Carbon Dioxide 38 mmol/L (21-32) H 02/05/19 04:43 Anion Gap 11.0 (6-13) 02/05/19 04:43 BUN 26 mg/dL (6-20) H 02/05/19 04:43 Creatinine 0.8 mg/dL (0.6-1.2) 02/05/19 04:43 Estimated GFR (MDRD) 92 (>89) 02/05/19 04:43 Glucose 135 mg/dL (70-100) H 02/05/19 04:43 Calcium 8.6 mg/dL (8.5-10.3) 02/05/19 04:43 Phosphorus 3.8 mg/dL (2.5-4.6) 02/01/19 05:06 Magnesium 2.1 mg/dL (1.7-2.8) 02/02/19 05:15 Iron 34 ug/dL (45-182) L 02/04/19 07:18 TIBC 218 ug/dL (250-450) L 02/04/19 07:18 % Saturation 16 % (20-50) L 02/04/19 07:18 Transferrin 156 mg/dL (180-329) L 02/04/19 07:18 Total Bilirubin 1.1 mg/dL (0.2-1.0) H 01/31/19 22:00 AST 12 IU/L (10-42) 01/31/19 22:00 ALT < 10 IU/L (10-60) L 01/31/19 22:00 Alkaline Phosphatase 74 IU/L (42-121) 01/31/19 22:00 Troponin I 0.07 ng/mL (<0.49) 02/04/19 07:18 B-Natriuretic Peptide 1062 pg/mL (5-100) H 02/04/19 07:18 Total Protein 7.1 g/dL (6.7-8.2) 01/31/19 22:00 Albumin 3.2 g/dL (3.2-5.5) 01/31/19 22:00 Globulin 3.9 g/dL (2.1-4.2) 01/31/19 22:00 Albumin/Globulin Ratio 0.8 (1.0-2.2) L 01/31/19 22:00 Lipase 20 U/L (22-51) L 01/31/19 22:00 Vitamin B12 250 pg/mL (180-914) 02/04/19 07:18 Folate 8.53 ng/mL (5.90 - >24.8) 02/04/19 07:18 TSH 1.30 uIU/mL (0.34-5.60) 02/04/19 07:18 Urine Color DARK YELLOW 01/31/19 22:25 Urine Clarity CLEAR (CLEAR) 01/31/19 22:25 Urine pH 6.0 PH (5.0-7.5) 01/31/19 22:25 Ur Specific [place] 1.020 (1.002-1.030) 01/31/19 22:25 Urine Protein 100 mg/dL (NEGATIVE) H 01/31/19 22:25 Urine Glucose (UA) NEGATIVE mg/dL (NEGATIVE) 01/31/19 22:25 Urine Ketones NEGATIVE mg/dL (NEGATIVE) 01/31/19 22:25 Urine Occult Blood LARGE (NEGATIVE) H 01/31/19 22:25 Urine Nitrite NEGATIVE (NEGATIVE) 01/31/19 22:25 Urine Bilirubin NEGATIVE (NEGATIVE) 01/31/19 22:25 Urine Urobilinogen 2 E.U./dL (NORMAL) H 01/31/19 22:25 Ur Leukocyte Esterase NEGATIVE (NEGATIVE) 01/31/19 22:25 Urine RBC TNTC /HPF (0-5) H 01/31/19 22:25 Urine WBC 0-3 /HPF (0-3) 01/31/19 22:25 Ur Squamous Epith Cells FEW Squamous (<= Few) 01/31/19 22:25 Urine Bacteria None Seen /HPF (None Seen) 01/31/19 22:25 Urine Mucus Marked Strands 01/31/19 22:25 Ur Microscopic Review INDICATED 01/31/19 22:25 Urine Culture Comments NOT INDICATED 01/31/19 22:25 Fluid Source PLEURAL 02/03/19 12:50 Fluid Color BLOODY 02/03/19 12:50 Fluid Clarity HAZY 02/03/19 12:50 Fluid WBC 32 /mm^3 02/03/19 12:50 Fluid RBC 92921 /mm^3 02/03/19 12:50 Fluid Neutrophils % 48 % 02/03/19 12:50 Fluid Lymphocytes % 40 02/03/19 12:50 Fluid Monocytes % 10 % 02/03/19 12:50 Fluid Eosinophils % 2 % 02/03/19 12:50 Fld Mesothelial Cell % 0 % 02/03/19 12:50 Nasal Screen MRSA (PCR) NEGATIVE (NEGATIVE) 02/02/19 08:45 - Procedures Procedures: Procedures EXCISION OF RECTUM, ENDO (08/05/18)
[2019-02-05 11:07] LABS: EOSINOPHILS % (AUTO) 0.2 %; HGB - HEMOGLOBIN 11.8 g/dL (14.0-18.0); LYMPHOCYTES # (AUTO) 0.2 10^3/uL (1.5-3.5); MEAN CORPUSCULAR HGB CONC 30.9 g/dL (32.0-36.0); MEAN CORPUSCULAR VOLUME 106.7 fL (80.0-94.0); MEAN PLATELET VOLUME 9.6 fL (7.4-11.4); MONOCYTES # (AUTO) 0.7 10^3/uL (0.0-1.0); MONOCYTES % (AUTO) 13.5 %; NEUTROPHILS # (AUTO) 4.5 10^3/uL (1.5-6.6); NEUTROPHILS % (AUTO) 81.8 %; PLT - PLATELET COUNT 133 10^3/uL (130-450); RED BLOOD COUNT 3.58 10^6/uL (4.70-6.10); RED CELL DISTRIBUTION WIDTH 13.2 % (12.0-15.0); WHITE BLOOD COUNT 5.5 x10^3/uL (4.8-10.8)
[2019-02-05] MEDS ORDERED: FLUMAZENIL 0.1 MG/1 ML 5 ML MDV IVP ONE ×3 (11:40→12:46)
[2019-02-05 13:10] LABS: ABG BASE EXCESS 9.9 mmol/L (-2.0-3.0); ABG HCO3 38.5 mmol/L (22.0-26.0); ABG OXYGEN SATURATION 95 % (94-98); ABG PH 7.33 (7.35-7.45); ABG PO2 79 mmHg (80-100)
[2019-02-05 13:11] LABS: ALLEN TEST POSITIVE
[2019-02-05 13:14] LABS: ABG PCO2 75 mmHg (34-45); ABG TCO2 40.8 MMOL/L (21.0-29.0)
[2019-02-05] MEDS: HEPARIN 5,000 UNIT/ML VIAL SUBQ SCH ×2 (13:24→21:31)
[2019-02-05] MEDS: POTASSIUM CHLORIDE 20 MEQ TABLET PO SCH (13:25)
[2019-02-05] MEDS: FERROUS GLUCONATE 324 MG TABLET PO SCH (13:25)
[2019-02-05] MEDS: CARVEDILOL 12.5 MG TABLET PO SCH ×2 (13:26→21:32)
[2019-02-05] MEDS: DOCUSATE SODIUM 250 MG CAPSULE PO SCH (13:26)
[2019-02-05] MEDS: EPLERENONE 25 MG TABLET PO SCH (13:27)
[2019-02-05] MEDS: SENNA 8.6 MG TABLET PO SCH (13:28)
[2019-02-05] MEDS: LISINOPRIL 20 MG TABLET PO SCH (13:28)
[2019-02-05] MEDS: POLYETHYLENE GLYCOL 3350 17 GM PACKET PO SCH (13:28)
[2019-02-05] MEDS: NYSTATIN POWDER 15 GM TOP SCH ×2 (13:35→21:32)
[2019-02-05] MEDS: metOLazone 2.5 MG TABLET PO SCH (13:36)
[2019-02-05 17:26] LABS: ABG PH 7.34 (7.35-7.45)
[2019-02-05 17:28] LABS: ABG HCO3 45.2 mmol/L (22.0-26.0); ABG PCO2 87 mmHg (34-45); ABG PO2 85 mmHg (80-100)
[2019-02-05 17:29] LABS: ABG BASE EXCESS 15.9 mmol/L (-2.0-3.0); ABG OXYGEN SATURATION 96 % (94-98); ABG TCO2 47.9 MMOL/L (21.0-29.0)
[2019-02-05 17:30] LABS: ALLEN TEST POSITIVE
[2019-02-05] MEDS: SODIUM CHLORIDE FLUSH 0.9% 10 ML SYRINGE IVP PRN (18:06)
[2019-02-05] MEDS: traZODone 50 MG TABLET PO SCH (22:41)
[2019-02-06] MEDS: SODIUM CHLORIDE FLUSH 0.9% 10 ML SYRINGE IVP SCH ×3 (04:25→17:26)
[2019-02-06 05:06] LABS: CALCIUM 8.6 mg/dL (8.5-10.3); CREATININE 0.9 mg/dL (0.6-1.2)
[2019-02-06] MEDS ORDERED: metOLazone 2.5 MG TABLET PO SCH (08:00)
[2019-02-06] MEDS: FERROUS GLUCONATE 324 MG TABLET PO SCH (08:14)
[2019-02-06] MEDS: metOLazone 2.5 MG TABLET PO SCH (08:14)
[2019-02-06] MEDS: POTASSIUM CHLORIDE 20 MEQ TABLET PO SCH (08:15)
[2019-02-06] MEDS: CARVEDILOL 12.5 MG TABLET PO SCH ×2 (08:15→22:25)
[2019-02-06] MEDS: DOCUSATE SODIUM 250 MG CAPSULE PO SCH (08:15)
[2019-02-06] MEDS: EPLERENONE 25 MG TABLET PO SCH (08:16)
[2019-02-06] MEDS: LISINOPRIL 20 MG TABLET PO SCH (08:17)
[2019-02-06] MEDS: HEPARIN 5,000 UNIT/ML VIAL SUBQ SCH ×2 (08:31→21:52)
[2019-02-06] MEDS: FUROSEMIDE 40 MG/4 ML VIAL IVP SCH (08:31)
[2019-02-06] MEDS: POLYETHYLENE GLYCOL 3350 17 GM PACKET PO SCH (08:31)
[2019-02-06] MEDS: SENNA 8.6 MG TABLET PO SCH (08:32)
[2019-02-06] MEDS: NYSTATIN POWDER 15 GM TOP SCH ×2 (08:37→21:53)
[2019-02-06] MEDS ORDERED: LISINOPRIL 20 MG TABLET PO SCH (09:09)
--- NOTE | 2019-02-06 17:24 | PROVIDER PROGRESS NOTE ---
Assessment/Plan - Problem List (1) Hypotension Assessment/Plan: Blood pressures have been running 80-100 systolic today, just as he has achieved negative fluid balance and has lost 2 pounds since yesterday. He is therefore not yet ready for discharge today. His medications will be adjusted today again, before duscharge, which is expected to be tomorrow. (2) Acute on chronic systolic heart failure, NYHA class 3 Assessment/Plan: Patient is now on his new therapy and new doses for his CHF: Beta-blockers, spinolactone, loop diuretic, metolazone, low-dose NOAH inhibitor, no potassium replacement, aspirin, and statin. The Tomas will be stopped. Patient was able to start physical therapy in his room, minimal yesterday, more today. He does agree to PT rehab at a SNF which is being arranged by social workers. He required oxygen at home before this admission. The patient and his family were complaining of difficulty with the portability of the oxygen cylinders, which he uses to treat his CHF (ICD code I50.9). They stated that the oxygen cylinders are very heavy and difficult to use when he travels outside the home. I believe a portable oxygen concentrator will help give this patient a better quality of life and improve compliance with his oxygen use. I am ordering a portable oxygen concentrator, at 3 L/min continuous use, for Mr. Ontiveros's use (3) Hyperkalemia Assessment/Plan: Potassium replacement will be stopped, since he gets 2 potassium-retaining meds: NOAH and Inspra (instead of Spironolactone). (4) COPD (chronic obstructive pulmonary disease) Qualifiers: COPD type: emphysema Assessment/Plan: There is been suspicion that he has COPD, based on his CO2 retention and clinical picture. Today he underwent pulmonary function testing. Baseline PFTs today showed severe COPD: His FEV1 was 1.12 L, which is 40% of his predicted value, and his FEF 25-75% was 0.93 L/s, which is 53% of predicted values. His baseline ABG drawn on 02/05/2019 at 0841 showed a pH of 7.41, CO2 was 63 mmHg, PO2 was 82 and HCO3 was 38.6 mmol/L which was drawn on 3 L/min nasal cannula. Non-invasive ventilator is required to reduce hospitalization and improve patient health. BiPAP was considered and deemed ineffective. I am ordering non-invasive ventilator to treat his COPD and chronic respiratory failure. (5) RHODA on CPAP Assessment/Plan: He had marked hypercarbia and witnessed obstruction yesterday when he was somnolent after the Versed. The RT, Gabriela, documented that his CPAP setting at home of 5 mmHg was inadequate, on that setting he desaturated to 88% despite supplemental oxygen. He will need a different device for nighttime oxygen support (see #4). (6) Chronic pleural effusion Assessment/Plan: There has been 1 to 2 L of negative fluid balance after the aggressive adjustments in his management 3 days ago. He is no more dyspneic than he was when he had the nonfunctioning chest tube in place. [place] the chest tube was removed yesterday and he took nearly the entire day to recover from the conscious sedation (Versed was given, and Romazicon reversal) yesterday. He is much more alert and back to his baseline today. (7) New onset a-fib Assessment/Plan: Heart rate has been under control after medications were adjusted. He is not a candidate for anticoagulation due to advanced age and very poor gait due to severe deconditioning with this ICU stay (8) Anemia Qualifiers: Anemia type: iron deficiency Assessment/Plan: Patient was started on oral iron replacement therapy during this admission (9) Depression Assessment/Plan: He is on his home dose of does rule dosed at at bedtime. The daughter has organized for him to see a psychologist soon, to manage his PTSD (10) Hx of coronary artery disease Assessment/Plan: Stable during this admission. He is on an aspirin and statin (12) Epigastric abdominal pain Assessment/Plan: Resolved. It was probably due to the indwelling chest tube in the lower left rib cage area (13) Delirium due to general medical condition Assessment/Plan: Resolved. It was likely due to ing and metabolic encephalopathy from hypoxia - Current Meds Current Meds: Current Medications Generic Name Dose Route Start Last Admin Trade Name Freq PRN Reason Stop Dose Admin Carvedilol 12.5 mg 02/01/19 09:00 02/06/19 08:15 Coreg PO 12.5 mg BID HOMER Administration Docusate Sodium 250 - 500 mg 02/04/19 09:00 02/06/19 08:15 Colace 250mg Capsule PO 250 mg DAILY HOMER Administration Eplerenone 25 mg 02/04/19 10:00 02/06/19 08:16 Inspra PO 25 mg DAILY HOMER Administration Ferrous Gluconate 324 mg 02/04/19 14:00 02/06/19 08:14 Fergon PO 324 mg DAILYWM HOMER Administration Heparin Sodium (Porcine) 5,000 unit 02/01/19 09:00 02/06/19 08:31 SUBQ 5,000 unit BID HOMER Administration Lisinopril 10 mg 02/06/19 09:09 02/06/19 13:29 Zestril PO Not Given DAILY HOMER Metolazone 2.5 mg 02/05/19 09:21 02/06/19 08:14 Zaroxolyn PO 2.5 mg 0800 HOMER Administration Morphine Sulfate 2 mg 02/03/19 10:12 02/03/19 21:14 Morphine (Carpuject) IVP 2 mg Q2H PRN Administration Dyspnea Nystatin 1 applic 02/04/19 09:00 02/06/19 08:37 Nystop TOP 1 applic BID HOMER Administration Polyethylene Glycol 17 gm 02/03/19 10:00 02/06/19 08:31 Miralax PO Not Given DAILY HOMER Potassium Chloride 20 meq 02/01/19 08:00 02/06/19 08:15 K-Dur PO 20 meq DAILYWM HOMER Administration Senna 8.6 - 17.2 mg 02/04/19 09:00 02/06/19 08:32 Senokot PO Not Given DAILY HOMER Sodium Chloride 10 ml 01/31/19 23:53 02/05/19 18:06 Normal Saline Flush 0.9% IVP 10 ml PRN PRN Administration NEEDED PER PROVIDER ORDERS Sodium Chloride 10 ml 02/01/19 01:00 02/06/19 08:32 Normal Saline Flush 0.9% IVP 10 ml 0100,0900,1700 HOMER Administration Trazodone HCl 50 mg 02/03/19 21:00 02/05/19 22:41 Desyrel PO Not Given QPM HOMER Zinc Oxide 1 gm 02/01/19 12:56 02/02/19 00:27 Desitin TOP 1 applic PRN PRN Administration Skin Care - Lab Result Fish Bone Diagrams: 02/05/19 10:50 02/06/19 04:44 - Additional Planning My Orders: My Active Orders 02/05/19 17:42 Arterial Blood Gases - RT [RC] .ONCE 02/06/19 09:09 Lisinopril [Zestril] 10 mg PO DAILY 02/07/19 08:00 Furosemide [Lasix] 40 mg PO 0800 Subjective - Subjective Patient Reports: Feeling Better, Resting Comfortably, No Complaints Nursing Reports: Other (Much more alert,He is able to answer and joke with his care providers and visitors.) Objective Vital Signs: Vital Signs - 24 hr 02/05/19 02/05/19 02/05/19 17:35 18:00 19:00 Temperature 36.3 C L Heart Rate 75 Heart Rate [ 70 80 Monitoring electrodes] Respiratory 15 25 H Rate Blood Pressure 104/51 L 98/50 L [Left Brachial artery] O2 Saturation 98 100 02/05/19 02/05/19 02/05/19 20:00 21:00 22:00 Temperature 37.0 C Heart Rate Heart Rate [ 79 83 80 Monitoring electrodes] Respiratory 19 22 22 Rate Blood Pressure 91/53 L 92/54 L 109/53 L [Left Brachial artery] O2 Saturation 100 100 100 02/05/19 02/06/19 02/06/19 23:00 00:00 01:00 Temperature 36.5 C Heart Rate Heart Rate [ 84 80 78 Monitoring electrodes] Respiratory 21 19 22 Rate Blood Pressure 106/54 L 100/54 L 106/56 L [Left Brachial artery] O2 Saturation 100 100 99 02/06/19 02/06/19 02/06/19 02:00 03:00 04:00 Temperature 36.6 C Heart Rate Heart Rate [ 84 76 75 Monitoring electrodes] Respiratory 20 16 26 H Rate Blood Pressure 100/53 L 102/56 L 103/57 L [Left Brachial artery] O2 Saturation 99 99 99 02/06/19 02/06/19 02/06/19 05:00 06:00 07:00 Temperature Heart Rate Heart Rate [ 78 83 81 Monitoring electrodes] Respiratory 18 18 12 Rate Blood Pressure 104/63 103/60 98/54 L [Left Brachial artery] O2 Saturation 99 99 99 02/06/19 02/06/19 02/06/19 08:00 09:00 10:00 Temperature 35.8 C L Heart Rate Heart Rate [ 85 86 88 Monitoring electrodes] Respiratory 17 20 20 Rate Blood Pressure 108/57 L 101/55 L 87/47 L [Left Brachial artery] O2 Saturation 100 96 98 02/06/19 02/06/19 02/06/19 11:52 13:00 13:52 Temperature 36.9 C 37.1 C Heart Rate Heart Rate [ 77 86 78 Monitoring electrodes] Respiratory 17 25 H 14 Rate Blood Pressure 86/51 L 82/40 L 147/118 H [Left Brachial artery] O2 Saturation 100 99 100 02/06/19 02/06/19 02/06/19 13:53 15:00 16:00 Temperature 37.0 C Heart Rate Heart Rate [ 79 82 85 Monitoring electrodes] Respiratory 18 31 H 22 Rate Blood Pressure 72/45 L 98/57 L 88/54 L [Left Brachial artery] O2 Saturation 100 99 97 Oxygen O2 Source [Without Activity] Oxymizer O2 Source Nasal cannula Oxygen Flow Rate 4 I&O (Last 24 Hrs): Intake and Output Totals x24h 02/04/19 02/05/19 02/06/19 23:59 23:59 23:59 Intake Total 740 650 980 Output Total 1615 1145 500 Balance -875 -495 480 - Results Results: Laboratory Results WBC 5.5 x10^3/uL (4.8-10.8) 02/05/19 10:50 RBC 3.58 10^6/uL (4.70-6.10) L 02/05/19 10:50 Hgb 11.8 g/dL (14.0-18.0) L 02/05/19 10:50 Hct 38.2 % (42.0-52.0) L 02/05/19 10:50 MCV 106.7 fL (80.0-94.0) H 02/05/19 10:50 MCH 33.0 pg (27.0-31.0) H 02/05/19 10:50 MCHC 30.9 g/dL (32.0-36.0) L 02/05/19 10:50 RDW 13.2 % (12.0-15.0) 02/05/19 10:50 Plt Count 133 10^3/uL (130-450) 02/05/19 10:50 MPV 9.6 fL (7.4-11.4) 02/05/19 10:50 Neut # (Auto) 4.5 10^3/uL (1.5-6.6) 02/05/19 10:50 Lymph # (Auto) 0.2 10^3/uL (1.5-3.5) L 02/05/19 10:50 [place] # (Auto) 0.7 10^3/uL (0.0-1.0) 02/05/19 10:50 Eos # (Auto) 0.0 10^3/uL (0.0-0.7) 02/05/19 10:50 Baso # (Auto) 0.0 10^3/uL (0.0-0.1) 02/05/19 10:50 Absolute Nucleated RBC 0.00 x10^3/uL 02/05/19 10:50 Nucleated RBC % 0.0 /100WBC 02/05/19 10:50 PT 14.1 secs (9.9-12.6) H 02/03/19 09:00 INR 1.3 (0.8-1.2) H 02/03/19 09:00 Anti-Xa Level 0.0 U/mL (-0.7) 02/03/19 09:00 Bld Gas Analysis Time 0831 02/05/19 Unknown Sample Site RIGHT RADIAL 02/05/19 Unknown ABG pH 7.41 (7.35-7.45) 02/05/19 Unknown ABG pCO2 63 mmHg (34-45) H* 02/05/19 Unknown ABG pO2 82 mmHg (80-100) 02/05/19 Unknown ABG HCO3 38.6 mmol/L (22.0-26.0) H 02/05/19 Unknown ABG Total CO2 40.5 MMOL/L (21.0-29.0) H* 02/05/19 Unknown ABG O2 Saturation 96 % (94-98) 02/05/19 Unknown ABG Oximetry Spot Check 95 % 02/05/19 Unknown ABG Base Excess 11.6 mmol/L (-2.0-3.0) H 02/05/19 Unknown Jez Test POSITIVE 02/05/19 Unknown Respiration Rate 19 b/min 02/05/19 Unknown O2 Delivery Device NASAL CANNULA 02/05/19 Unknown O2 Liters/Min 3.00 LPM 02/05/19 Unknown FiO2 30.00 02/05/19 17:17 EPAP 5 cmH2O 02/05/19 17:17 IPAP 12 cmH2O 02/05/19 17:17 Sodium 142 mmol/L (135-145) 02/06/19 04:44 Potassium 5.1 mmol/L (3.5-5.0) H 02/06/19 04:44 Chloride 94 mmol/L (101-111) L 02/06/19 04:44 Carbon Dioxide 40 mmol/L (21-32) H* 02/06/19 04:44 Anion Gap 8.0 (6-13) 02/06/19 04:44 BUN 31 mg/dL (6-20) H 02/06/19 04:44 Creatinine 0.9 mg/dL (0.6-1.2) 02/06/19 04:44 Estimated GFR (MDRD) 80 (>89) L 02/06/19 04:44 Glucose 134 mg/dL (70-100) H 02/06/19 04:44 Calcium 8.6 mg/dL (8.5-10.3) 02/06/19 04:44 Phosphorus 3.8 mg/dL (2.5-4.6) 02/01/19 05:06 Magnesium 2.1 mg/dL (1.7-2.8) 02/02/19 05:15 Iron 34 ug/dL (45-182) L 02/04/19 07:18 TIBC 218 ug/dL (250-450) L 02/04/19 07:18 % Saturation 16 % (20-50) L 02/04/19 07:18 Transferrin 156 mg/dL (180-329) L 02/04/19 07:18 Total Bilirubin 1.1 mg/dL (0.2-1.0) H 01/31/19 22:00 AST 12 IU/L (10-42) 01/31/19 22:00 ALT < 10 IU/L (10-60) L 01/31/19 22:00 Alkaline Phosphatase 74 IU/L (42-121) 01/31/19 22:00 Troponin I 0.07 ng/mL (<0.49) 02/04/19 07:18 B-Natriuretic Peptide 1062 pg/mL (5-100) H 02/04/19 07:18 Total Protein 7.1 g/dL (6.7-8.2) 01/31/19 22:00 Albumin 3.2 g/dL (3.2-5.5) 01/31/19 22:00 Globulin 3.9 g/dL (2.1-4.2) 01/31/19 22:00 Albumin/Globulin Ratio 0.8 (1.0-2.2) L 01/31/19 22:00 Lipase 20 U/L (22-51) L 01/31/19 22:00 Vitamin B12 250 pg/mL (180-914) 02/04/19 07:18 Folate 8.53 ng/mL (5.90 - >24.8) 02/04/19 07:18 TSH 1.30 uIU/mL (0.34-5.60) 02/04/19 07:18 Urine Color DARK YELLOW 01/31/19 22:25 Urine Clarity CLEAR (CLEAR) 01/31/19 22:25 Urine pH 6.0 PH (5.0-7.5) 01/31/19 22:25 Ur Specific [place] 1.020 (1.002-1.030) 01/31/19 22:25 Urine Protein 100 mg/dL (NEGATIVE) H 01/31/19 22:25 Urine Glucose (UA) NEGATIVE mg/dL (NEGATIVE) 01/31/19 22:25 Urine Ketones NEGATIVE mg/dL (NEGATIVE) 01/31/19 22:25 Urine Occult Blood LARGE (NEGATIVE) H 01/31/19 22:25 Urine Nitrite NEGATIVE (NEGATIVE) 01/31/19 22:25 Urine Bilirubin NEGATIVE (NEGATIVE) 01/31/19 22:25 Urine Urobilinogen 2 E.U./dL (NORMAL) H 01/31/19 22:25 Ur Leukocyte Esterase NEGATIVE (NEGATIVE) 01/31/19 22:25 Urine RBC TNTC /HPF (0-5) H 01/31/19 22:25 Urine WBC 0-3 /HPF (0-3) 01/31/19 22:25 Ur Squamous Epith Cells FEW Squamous (<= Few) 01/31/19 22:25 Urine Bacteria None Seen /HPF (None Seen) 01/31/19 22:25 Urine Mucus Marked Strands 01/31/19 22:25 Ur Microscopic Review INDICATED 01/31/19 22:25 Urine Culture Comments NOT INDICATED 01/31/19 22:25 Fluid Source PLEURAL 02/03/19 12:50 Fluid Color BLOODY 02/03/19 12:50 Fluid Clarity HAZY 02/03/19 12:50 Fluid WBC 32 /mm^3 02/03/19 12:50 Fluid RBC 13303 /mm^3 02/03/19 12:50 Fluid Neutrophils % 48 % 02/03/19 12:50 Fluid Lymphocytes % 40 02/03/19 12:50 Fluid Monocytes % 10 % 02/03/19 12:50 Fluid Eosinophils % 2 % 02/03/19 12:50 Fld Mesothelial Cell % 0 % 02/03/19 12:50 Nasal Screen MRSA (PCR) NEGATIVE (NEGATIVE) 02/02/19 08:45 Ref Lab Test Result REPORT 02/03/19 12:50 Ref Lab Test Result REPORT 02/03/19 12:50 - Procedures Procedures: Procedures EXCISION OF RECTUM, ENDO (08/05/18)
[2019-02-06] MEDS: traZODone 50 MG TABLET PO SCH (21:53)
[2019-02-07] MEDS: SODIUM CHLORIDE FLUSH 0.9% 10 ML SYRINGE IVP SCH ×2 (04:44→08:30)
[2019-02-07] MEDS ORDERED: FUROSEMIDE 40 MG TABLET PO SCH (08:00)
[2019-02-07] MEDS: POLYETHYLENE GLYCOL 3350 17 GM PACKET PO SCH (08:16)
[2019-02-07] MEDS ORDERED: CARVEDILOL 12.5 MG TABLET PO SCH (08:21)
[2019-02-07] MEDS: DOCUSATE SODIUM 250 MG CAPSULE PO SCH (08:27)
[2019-02-07] MEDS: FERROUS GLUCONATE 324 MG TABLET PO SCH (08:28)
[2019-02-07] MEDS: SENNA 8.6 MG TABLET PO SCH (08:28)
[2019-02-07] MEDS: EPLERENONE 25 MG TABLET PO SCH (08:36)
[2019-02-07] MEDS ORDERED: LISINOPRIL 20 MG TABLET PO SCH (09:00)
[2019-02-07] MEDS ORDERED: metOLazone 2.5 MG TABLET PO SCH (09:00)
[2019-02-07] MEDS: HEPARIN 5,000 UNIT/ML VIAL SUBQ SCH (09:49)
--- NOTE | 2019-02-07 12:35 | Discharge Plan ---
"Discharge Plan for SNF / [facility] - Discharge Plan And Transition Orders Problem Reviewed?: Yes Disposition: 03 SNF DC/Xfer Condition: Stable Allergies and Adverse Reactions: Allergies Allergy/AdvReac Type Severity Reaction Status Date / Time adhesive Allergy Rash Verified 01/31/19 21:27 atorvastatin calcium * Allergy Unknown Verified 01/31/19 21:27 [From Lipitor] bupropion Allergy Unknown Verified 01/31/19 21:27 propoxyphene HCl * Allergy Unknown Verified 01/31/19 21:27 [From Darvon] sulfamethoxazole Allergy Unknown Verified 01/31/19 21:27 [From Bactrim] tamsulosin [From Flomax] Allergy Unknown Verified 01/31/19 21:27 trimethoprim [From Bactrim] Allergy Unknown Verified 01/31/19 21:27 midazolam AdvReac Severe Unknown Verified 02/07/19 10:57 Health Concerns: CHF exacerbation with chronic pleural effusion. Plugged chest tube. Sleep apnea and newly diagnosed (during this admission) severe COPD. Plan of Treatment: Medications for treating acute on chronic systolic heart failure were adjusted. The chest tube was removed in the OR. Sleep apnea and newly diagnosed severe COPD were managed with supplemental oxygen and BIPAP and a new Trilogy machine was ordered. Care Goals: PT rehab for strengthening is needed befor returning home. He is on a new medication list. Assessment: The patient, and family are agreeable with the plan. - SNF / [facility] Transition Orders Admit to (Facility): [place], [place] Discharge Diagnosis: 1) Hypotension Required extensive medication adjustments (2) Acute on chronic systolic heart failure, NYHA class 3 (3) Hyperkalemia (4) COPD (chronic obstructive pulmonary disease), severe, newly diagnosed (5) Obstructive sleep apnea (6) Chronic pleural effusions (7) New onset A-fib (8) Anemia, iron deficiency (9) Depression and PTSD (10) Hx of coronary artery disease (12) Epigastric abdominal pain Resolved with surgical removal of indwelling chest tube which was in the lower left rib cage area (13) Code status : DNR Medicare Certification Statement: I certify that [facility] is medically necessary on a continuing basis for any of the conditions for which she/he is receiving care during hospitalization. Notify PCP of admission and forward orders to primary provider for signature. Weight on admission and: Daily Call PCP immediately if weight increases by: 3 kg Other Notification Orders: Call PCP immediately if patient develops dyspnea, chest pain/tightness or edema. House Bowel Program: Yes Additional Bowel Program Orders: If no BM after 2 days, nurse may give M.O.M. 30ml PO PRN and/or ducolax Supp 1 [place] and/or BRONSON 250mg P.O., and/or senna 1-2 tabs PO. On day 3 nurse may give repeat above order until residents constipation is resolved. Annual Influenza Vaccine (between Mar 23 and October 20): Yes Two-step PPD per [facility] [id number] or approved exception documents: Yes Treatments & Other Orders: Daily PT and OT Oxygen Orders: O2 at 3L per nasal cannula continuously. Trilogy ventilator at with [facility] to set-up. Lab Tests or X-ray Orders: BMP every Mon and Fri (to check Potassium and BUN/creat) Medication Orders: PLEASE REFER TO THE DISCHARGE MEDICATION LIST. Insulin Orders?: No - Medications New Prescriptions: Carvedilol [Coreg] 12.5 mg PO BID #60 tablet Cod Liver Oil/Zinc Oxide [Desitin] 1 applic TOP PRN PRN #1 tube PRN Reason: Skin Care Ferrous Gluconate 240 mg PO DAILY #30 tablet Furosemide [Lasix] 40 mg PO 0800 #30 tablet Lisinopril 5 mg PO DAILY #30 tablet metOLazone [Zaroxolyn] 2.5 mg PO MOWEFR #15 tablet Nystatin [Nystop] 1 applic TOP BID #1 bottle Polyethylene Glycol 3350 [Miralax] 17 gm PO DAILY #30 packet Senna [Senokot] 8.6 mg PO DAILY #30 tablet Spironolactone [Aldactone] 25 mg PO DAILY #30 tablet - Diet Type: No added salt Texture: Regular Liquids: Thin May have monthly special meal: Yes - Therapies | Activity Therapy: Evaluation | Treat if indicated: PT, OT Rehabilitation Potential: Maximize functional status Activity: Activity as Tolerated Weight Bearing: Full Weight Assistance Devices: Walker Additional Instructions: See your Crisis Counselor and PCP after discharge from the [facility]."
[2019-02-07 17:24] VITALS: BP 125/66
[2019-02-08] MEDS ORDERED: FUROSEMIDE 40 MG TABLET PO SCH (08:00)
[2019-02-08] MEDS ORDERED: SPIRONOLACTONE 25 MG TABLET PO SCH (09:00)
[2019-02-10] MEDS ORDERED: metOLazone 2.5 MG TABLET PO SCH (09:00)
--- NOTE | 2019-02-11 11:31 | Discharge Plan ---
"Discharge Plan for SNF / [facility] - Discharge Plan And Transition Orders Problem Reviewed?: Yes Disposition: 03 SNF DC/Xfer Condition: Stable Allergies and Adverse Reactions: Allergies Allergy/AdvReac Type Severity Reaction Status Date / Time adhesive Allergy Rash Verified 01/31/19 21:27 atorvastatin calcium * Allergy Unknown Verified 01/31/19 21:27 [From Lipitor] bupropion Allergy Unknown Verified 01/31/19 21:27 propoxyphene HCl * Allergy Unknown Verified 01/31/19 21:27 [From Darvon] sulfamethoxazole Allergy Unknown Verified 01/31/19 21:27 [From Bactrim] tamsulosin [From Flomax] Allergy Unknown Verified 01/31/19 21:27 trimethoprim [From Bactrim] Allergy Unknown Verified 01/31/19 21:27 midazolam AdvReac Severe Unknown Verified 02/07/19 10:57 Health Concerns: CHF exacerbation with chronic pleural effusion. Plugged chest tube. Sleep apnea and newly diagnosed (during this admission) severe COPD. Plan of Treatment: Medications for treating acute on chronic systolic heart failure were adjusted. The chest tube was removed in the OR. Sleep apnea and newly diagnosed severe COPD were managed with supplemental oxygen and BIPAP and a new Trilogy machine was ordered. Care Goals: PT rehab for strengthening is needed befor returning home. He is on a new medication list. Assessment: The patient, and family are agreeable with the plan. - SNF / [facility] Transition Orders Admit to (Facility): [place], [place] Discharge Diagnosis: 1. Hypotension requiring extensive medication adjustments 2. Acute on chronic systolic heart failure, [place] Heart Association class III 3. Hyperkalemia 4. COPD, severe, newly diagnosed 5. Obstructive sleep apnea requiring CPAP 6. Chronic pleural effusions 7. New onset atrial fibrillation 8. Iron deficiency anemia 9. Depression and PTSD 10. History of coronary artery disease 11. Epigastric abdominal pain, resolved with surgical removal of indwelling chest tube which was in the lower left rib cage area 12. CODE STATUS DO NOT RESUSCITATE Medicare Certification Statement: I certify that [facility] is medically necessary on a continuing basis for any of the conditions for which she/he is receiving care during hospitalization. Notify PCP of admission and forward orders to primary provider for signature. Weight on admission and: Weekly Call PCP immediately if weight increases by: 2.2 kg Other Notification Orders: Call PCP immediately if patient develops dyspnea, chest pain/tightness or edema. House Bowel Program: Yes Additional Bowel Program Orders: If no BM after 2 days, nurse may give M.O.M. 30ml PO PRN and/or ducolax Supp 1 [place] and/or [place] 250mg P.O., and/or senna 1-2 tabs PO. On day 3 nurse may give repeat above order until residents constipation is resolved. Annual Influenza Vaccine (between Mar 23 and October 20): Yes Two-step PPD per [facility] [id number] or approved exception documents: Yes Treatments & Other Orders: Daily physical therapy and Occupational Therapy Oxygen Orders: CPAP while asleep with pressures 12 to 18 mm of water to maintain O2 sats greater than 92%, O2 while awake at 3L by HI continuously. Lab Tests or X-ray Orders: BMP every Sunday and Sunday to check potassium, BUN, creatinine Medication Orders: PLEASE REFER TO THE DISCHARGE MEDICATION LIST. Insulin Orders?: No - Medications New Prescriptions: Carvedilol [Coreg] 12.5 mg PO BID #60 tablet Cod Liver Oil/Zinc Oxide [Desitin] 1 applic TOP PRN PRN #1 tube PRN Reason: Skin Care Ferrous Gluconate 240 mg PO DAILY #30 tablet Furosemide [Lasix] 40 mg PO 0800 #30 tablet Lisinopril 5 mg PO DAILY #30 tablet metOLazone [Zaroxolyn] 2.5 mg PO MOWEFR #15 tablet Nystatin [Nystop] 1 applic TOP BID #1 bottle Polyethylene Glycol 3350 [Miralax] 17 gm PO DAILY #30 packet Senna [Senokot] 8.6 mg PO DAILY #30 tablet Spironolactone [Aldactone] 25 mg PO DAILY #30 tablet - Diet Type: No added salt Texture: Regular Liquids: Thin May have monthly special meal: Yes - Therapies | Activity Therapy: Evaluation | Treat if indicated: PT, OT Rehabilitation Potential: Maximize functional status Activity: Activity as Tolerated Weight Bearing: Full Weight Assistance Devices: Walker Additional Instructions: See your Fudger and PCP after discharge from the [facility]."
--- NOTE | 2019-02-13 16:56 | DISCHARGE SUMMARY ---
Physician: Dara Fan MD DATE OF ADMISSION: 01/31/2019 DATE OF DISCHARGE: 02/07/2019 HISTORY OF PRESENT ILLNESS: This is an 88-year-old white male with a history of chronic systolic heart failure with LVEF by Echo done 10/2018 of 35%, history of hypertension, sleep apnea, noncompliant with a newly ordered CPAP machine, history of a recurrent left-sided effusion with approximately 6 prior thoracenteses and placement of a left-sided chest tube approximately 12 weeks ago. He was getting about 500 mL removed via chest tube every week. It was unable to produce any drainage for the previous 2 weeks. He started to get worsening shortness of breath as well as worsening leg edema and presented to the hospital in severe distress with orthopnea, hypoxic and a chest x-ray showed persistent pleural effusion. Admission labs were pertinent for a BNP of 1413, up from his baseline, which is in the 500s. He was admitted for management of his fluid overload causing respiratory failure. HOSPITAL COURSE AND DISCHARGE DIAGNOSES 1. Hypotension. The patient required admission to the ICU for respiratory management. He required IV Lasix and after several days, had the initiation of Eplerenone, Metolazone in addition to his continued Carvedilol, Lasix and NOAH inhibitor. With this combination of medications, he had significant hypotension with blood pressures occasionally in the 80s, which added to his weakness and lethargy. His NOAH inhibitor was significantly decreased during this hospitalization from 40 mg a day, sequentially down to 5 mg per day because of the hypotension, and in order to use higher doses of his diuretics. At the time of discharge, his blood pressure was 106-125/65-75. 2. Acute on chronic systolic heart failure, [place] [employer] class III. He was initially put on IV Lasix 40 mg b.i.d. and even after 4 days with this management, there was no significant weight loss or negative fluid balance. Subsequently, we added new Eplerenone 25 mg daily orally (substituting for Spironolactone, which was listed as an allergy), new Metolazone orally daily and his IV Lasix was eventually transitioned to daily IV Lasix then oral Lasix. With this combination, he finally had approximately 8 kilograms of fluid loss, leg edema resolution and improved dyspnea. He has been now on supplemental oxygen at home, which was required throughout this admission and also management with BiPAP at the time of admission, eventually transitioning to an Oxymizer and then nasal cannula in the final 2-3 days. The pleural effusion was also attempted to be removed with thoracentesis (see below). An Echo, 2D only, was repeated to recheck his ejection fraction, and the EF had dropped to 25%. At the time of discharge to a [facility] facility, his medication list was entirely different from what he was on before this hospitalization. The patient was significantly deconditioned due to his ICU stay, began to participate in physical therapy and was a candidate for further rehabilitation with PT and was discharged to [facility] in [place], [place]. 3. Hyperkalemia. The patient had mild prerenal azotemia, which led to intermittent high potassium levels. His prehospitalization oral potassium replacements were entirely stopped during this hospitalization. 4. COPD, severe, newly diagnosed. Respiratory Therapists provided very thorough management using the BiPAP, Oxymizer, trial with settings on a Trilogy mask, neck re-position and finally he had a PFT exam. This showed severe COPD with FEV1 of 1.12 liters, which is 40% of his predicted value and his EPT92-72% was 0.93 L/s, which is 53% of the predicted value. His baseline ABG drawn on 02/05/2019 showed a pH of 7.41, pCO2 of 63 and pO2 of 82, on 3 liters nasal cannula. BiPAP was ineffective because he did not tolerate this. His home CPAP settings of 5 mmHg was inadequate, it caused him to desaturate to 88% despite being on supplemental oxygen with this. He was therefore ordered to have a noninvasive ventilator with a Trilogy machine to treat his COPD and chronic respiratory failure. 4. Chronic respiratory failure. The patient's management included supplemental oxygen, trials of different external masks and machines and he was discharged with the Trilogy mask order as above. He had respiratory failure from sedation plus his airway obstruction and his underlying COPD and CHF and chronic pleural effusions. 5. Obstructive sleep apnea. The patient had marked hypercarbia and witnessed obstruction. This occurred mostly when he was somnolent for a prolonged period after receiving Versed (for chest tube removal by surgery). Part of his obstructive airway was felt to be from his marked cervical kyphosis. The family reported that he slept with a swimming pool noodle under his chin in order to elevate his chin off his chest when he slept supine. 6. Chronic pleural effusion. The patient had bilateral pleural effusions on admission chest x-ray, left greater than right. A surgical consult was obtained with Dr. Diego who agreed that the chest tube was not functioning. A thoracentesis was attempted by invasive radiology, but only 75 mL could be removed. A repeat surgical consult was requested and Dr. Juan Stout was able to remove the nonfunctioning chest tube in the operating room. On that day, he had a slow recovery from his conscious sedation of Versed. He required Romazicon for reversal. Despite this, his oxygen requirement on that day cyndi due to significant desaturations from sedation plus his airway obstruction and his underlying COPD and CHF and pleural effusions. 7. New onset of atrial fibrillation. At approximately mid hospitalization, the patient went into atrial fibrillation at a controlled ventricular rate (rate controlled since he was on moderately high doses of Carvedilol). Troponin values were cycled and were negative. He was not felt to be a candidate for anticoagulation because of his advanced age, risk of falls and possible need for surgical management (chest tube placement and removal). He was on an aspirin daily for stroke prophylaxis. The cause of the new atrial fibrillation may have been his sleep apnea and hypoxia versus chronic pleural effusions versus systolic heart failure and dilated left atrium. 8. Anemia, iron deficiency. The patient initially was not in negative fluid balance, but when he started to have good diuresis, his hemoglobin continued to hover between 10.4 and 11.5. Lab tests were drawn to check for low B12, folate and iron stores. The B12 and folate were adequate. He required iron replacement, which was started orally and he was discharged with this. 9. Depression and posttraumatic stress disorder. During this hospitalization, he was occasionally frustrated by having air hunger despite being on his BiPAP or supplemental oxygen, he stated that he was getting over stimulated with too many detailed medical discussions and a daughter reported that since he has PTSD, he will [facility]. The patient was kept on his antidepressants while here. 10. History of coronary artery disease. The patient was kept on his aspirin and beta anthony while here. He is not a candidate for further invasive intervention because of his severe symptomatic CHF, COPD and sleep apnea. 11. Epigastric abdominal pain. This was an admitting complaint, which was suspected to be from his chronic chest tube position, since he described it as a band-like abdominal pain approximately at the level of the chest tube. This complaint resolved even before his chest tube was removed. LABORATORY AND IMAGING: Reviewed and summarized above. ALLERGIES 1. ADHESIVE TAPE. 2. LIPITOR. 3. BUPROPION. 4. DARVON. 5. BACTRIM. 6. FLOMAX. 7. THE PATIENT GETS SIGNIFICANT AND PROLONGED SEDATION FROM VERSED. 8. Please Note: Spironolactone and Hydralazine were taken off of his allergy list since they are not true allergies. This was confirmed after a phone discussion with his PCP office (see below). MEDICATIONS AT THE TIME OF DISCHARGE 1. Aspirin 81 mg daily. 2. Mouthwash p.r.n. 3. Multivitamin daily. 4. Trazodone 50 mg q.p.m. 5. Carvedilol 12.5 mg b.i.d. 6. Zinc oxide with Cod liver oil topically p.r.n. 7. Ferrous gluconate 240 mg daily. 8. Lasix 40 mg daily. 9. Lisinopril 5 mg daily. 10. Metolazone 2.5 mg on Sunday, Sunday, Sunday, 30 minutes before the Lasix dose 11. Nystatin topically p.r.n. 12. MiraLax 1 packet daily. 13. Senna 8.6 mg daily. 14. Spironolactone 25 mg daily. I spoke to staff at his PCP office to determine if he really had a Spironolactone allergy (since he was not on Spironolactone before this hospitalization due to it being listed as an allergy), and it was found that it had caused "palpitations." The inpatient medication Eplerenone was therefore not continued at discharge; instead Spironolactone 25 mg daily was ordered since it could be dosed with a generic [facility] in the future. PHYSICAL EXAMINATION AT DISCHARGE GENERAL: The patient is in no acute distress. VITAL SIGNS: Blood pressure 125/60, heart rate 80 in atrial fibrillation, respiratory rate 21-25, O2 saturation 96% on 3 liters nasal cannula, afebrile. HEENT: Unremarkable with moist oral mucosa. NECK: His neck has marked anterior kyphosis. No obvious JVD or bruits. CHEST: Diminished breath sounds at both bases. CARDIOVASCULAR: Heart irregular. No murmurs. ABDOMEN: Not tender. No organomegaly. EXTREMITIES: No clubbing, cyanosis, or edema. NEUROLOGIC: Grossly intact. CODE STATUS: DNR. Time required to complete this entire discharge, chart review, SNF orders, discussion with the patient and family, dictation and chart review: 80 minutes. cc: Tish Moser DO TD: 02/13/2019 16:16 MTDBa
== END 2019-02-07 17:28 | DRG 291 ==
LOC: EDUNIT# → ED 21:15 → MS3 23:53 → OBSVTOIN 02-02 06:53 → ICU 02-02 07:31
PROVIDERS: ADMIT Internal Medicine; ATTEND Internal Medicine
PROC: 0W9B3ZZ Drainage of Left Pleural Cavity, Percutaneous Approach (ICD-10-PCS; 2019-02-03)
PROC: 0WPB30Z Removal of Drainage Device from Left Pleural Cavity, Percutaneous Approach (ICD-10-PCS; principal; 2019-02-05 08:30)
DX: I11.0 Hypertensive heart disease with heart failure (principal); J96.21 Acute and chronic respiratory failure with hypoxia; J96.22 Acute and chronic respiratory failure with hypercapnia; T85.698A Other mechanical complication of other specified internal prosthetic devices, implants and grafts, initial encounter; E87.2 Acidosis; J91.8 Pleural effusion in other conditions classified elsewhere; I47.2 Ventricular tachycardia; D53.9 Nutritional anemia, unspecified; F05 Delirium due to known physiological condition; Z87.19 Personal history of other diseases of the digestive system; I50.43 Acute on chronic combined systolic (congestive) and diastolic (congestive) heart failure; T85.848A Pain due to other internal prosthetic devices, implants and grafts, initial encounter; Z95.5 Presence of coronary angioplasty implant and graft; Y84.8 Other medical procedures as the cause of abnormal reaction of the patient, or of later complication, without mention of misadventure at the time of the procedure; Z88.8 Allergy status to other drugs, medicaments and biological substances; G47.33 Obstructive sleep apnea (adult) (pediatric); I50.84 End stage heart failure; I48.91 Unspecified atrial fibrillation; I27.20 Pulmonary hypertension, unspecified; I25.10 Atherosclerotic heart disease of native coronary artery without angina pectoris; I95.9 Hypotension, unspecified; F43.10 Post-traumatic stress disorder, unspecified; D50.9 Iron deficiency anemia, unspecified; E87.5 Hyperkalemia; J43.9 Emphysema, unspecified; R40.0 Somnolence; T42.4X5A Adverse effect of benzodiazepines, initial encounter; I95.2 Hypotension due to drugs; T50.1X5A Adverse effect of loop [high-ceiling] diuretics, initial encounter; T50.2X5A Adverse effect of carbonic-anhydrase inhibitors, benzothiadiazides and other diuretics, initial encounter; T44.7X5A Adverse effect of beta-adrenoreceptor antagonists, initial encounter; Y92.230 Patient room in hospital as the place of occurrence of the external cause; R26.9 Unspecified abnormalities of gait and mobility; M40.202 Unspecified kyphosis, cervical region; I44.7 Left bundle-branch block, unspecified; F32.9 Major depressive disorder, single episode, unspecified; Z66 Do not resuscitate; Z51.5 Encounter for palliative care; Z99.81 Dependence on supplemental oxygen; Z79.899 Other long term (current) drug therapy; Z79.82 Long term (current) use of aspirin; Z90.49 Acquired absence of other specified parts of digestive tract; Z91.19 Patient's noncompliance with other medical treatment and regimen
CPT/HCPCS: 32555; 36415; 36600; 71045; 76700; 80048; 80053; 81001; 81599; 82607; 82746; 82803; 83540; 83690; 83735; 83880; 84100; 84443; 84466; 84484; 85025; 85520; 85610; 87070; 87150; 87205; 89051; 93005; 93308; 94660; 96372; 96374; 96375; 96376; 97110; 97116; 97161; 97167; 97530; 99284; 99285; A9270; G0378; J7120; 81003; 82272; 82947; 83615; 84155; 87086

== ENCOUNTER 2019-06-23 11:01 | Outpatient (CLI) | payer MEDICARE, OTHER ==
[2019-06-23 19:11] LABS: HGB - HEMOGLOBIN 11.9 g/dL (14.0-18.0); MEAN CORPUSCULAR HEMOGLOBIN 31.3 pg (27.0-31.0); MEAN CORPUSCULAR HGB CONC 31.7 g/dL (32.0-36.0); MEAN CORPUSCULAR VOLUME 98.7 fL (80.0-94.0); MEAN PLATELET VOLUME 9.1 fL (7.4-11.4); RED BLOOD COUNT 3.8 10^6/uL (4.70-6.10); WHITE BLOOD COUNT 5.2 x10^3/uL (4.8-10.8)
[2019-06-23 19:36] LABS: CALCIUM 9.3 mg/dL (8.5-10.3); CREATININE 2.1 mg/dL (0.6-1.2)
== END 2019-06-23 23:59 | disposition home or self-care (01) ==
LOC: LAB.WCP 11:01
PROVIDERS: ATTEND Family Medicine
DX: E87.1 Hypo-osmolality and hyponatremia (principal)
CPT/HCPCS: 36415; 80048; 85027

== ENCOUNTER 2019-09-10 10:29 | Outpatient (CLI) | payer MEDICARE, OTHER ==
[2019-09-10 12:19] LABS: EOSINOPHILS % (AUTO) 0.7 %; HGB - HEMOGLOBIN 12.5 g/dL (14.0-18.0); LYMPHOCYTES # (AUTO) 0.4 10^3/uL (1.5-3.5); LYMPHOCYTES % (AUTO) 9.3 %; MEAN CORPUSCULAR HEMOGLOBIN 32.6 pg (27.0-31.0); MEAN CORPUSCULAR HGB CONC 31.8 g/dL (32.0-36.0); MEAN CORPUSCULAR VOLUME 102.6 fL (80.0-94.0); MEAN PLATELET VOLUME 8.9 fL (7.4-11.4); MONOCYTES # (AUTO) 0.7 10^3/uL (0.0-1.0); MONOCYTES % (AUTO) 15.2 %; NEUTROPHILS # (AUTO) 3.2 10^3/uL (1.5-6.6); NEUTROPHILS % (AUTO) 74.6 %; PLT - PLATELET COUNT 161 10^3/uL (130-450); RED BLOOD COUNT 3.83 10^6/uL (4.70-6.10); RED CELL DISTRIBUTION WIDTH 14.4 % (12.0-15.0); WHITE BLOOD COUNT 4.3 x10^3/uL (4.8-10.8)
[2019-09-10 12:47] LABS: ALBUMIN 2.9 g/dL (3.2-5.5); ALBUMIN/GLOBULIN RATIO 0.8 (1.0-2.2); BILIRUBIN,TOTAL 0.7 mg/dL (0.2-1.0); CALCIUM 8.8 mg/dL (8.5-10.3); CREATININE 1.8 mg/dL (0.6-1.2); TOTAL PROTEIN 6.7 g/dL (6.7-8.2)
[2019-09-10 13:04] LABS: HB2 TOTAL 13.2 g/dL; HEMOGLOBIN A1C 0.46 g/dL; HEMOGLOBIN A1C % 5.3 % (4.6-6.2)
== END 2019-09-10 23:59 | disposition home or self-care (01) ==
LOC: LAB.WCP 10:29
PROVIDERS: ATTEND Family Medicine
DX: E11.59 Type 2 diabetes mellitus with other circulatory complications (principal); E11.22 Type 2 diabetes mellitus with diabetic chronic kidney disease; N18.3 Chronic kidney disease, stage 3 (moderate)
CPT/HCPCS: 36415; 80053; 83036; 85025

== ENCOUNTER 2019-10-06 13:59 | Outpatient (CLI) | payer MEDICARE, OTHER ==
[2019-10-06 18:28] LABS: HGB - HEMOGLOBIN 12.6 g/dL (14.0-18.0); MEAN CORPUSCULAR HEMOGLOBIN 31.7 pg (27.0-31.0); MEAN CORPUSCULAR HGB CONC 30.4 g/dL (32.0-36.0); MEAN PLATELET VOLUME 9.5 fL (7.4-11.4); RED BLOOD COUNT 3.98 10^6/uL (4.70-6.10); RED CELL DISTRIBUTION WIDTH 14.4 % (12.0-15.0)
[2019-10-06 18:44] LABS: CALCIUM 8.9 mg/dL (8.5-10.3); CREATININE 1.6 mg/dL (0.6-1.2)
== END 2019-10-06 23:59 | disposition home or self-care (01) ==
LOC: LAB.WCP 13:59
PROVIDERS: ATTEND Family Medicine
DX: I50.9 Heart failure, unspecified (principal)
CPT/HCPCS: 36415; 80048; 83880; 85027

== ENCOUNTER 2019-10-08 09:53 | Outpatient (CLI) | payer MEDICARE, OTHER ==
--- NOTE | 2019-10-08 12:44 | XRAY Report ---
Reason: LEFT PLEURAL EFFUSION,CHF Procedure Date: 10/08/2019 Accession Number: [id number] / [id number] Procedure: WCP - Chest 1 View X-Ray CPT Code: 74204 Final Report FULL RESULT: EXAM: CHEST RADIOGRAPHY EXAM DATE: 10/08/2019 11:42 AM. CLINICAL HISTORY: Left pleural effusion, CHF. COMPARISON: CHEST 1 VIEW 02/05/2019 9:07 AM. TECHNIQUE: 1 view. FINDINGS: Lungs/Pleura: Improved aeration bilaterally, with small right and moderate left pleural fluid collections. Pleural fluid tracks cephalad along the lateral left chest wall, suggesting possible loculation. The upper lungs appear clear. Mediastinum: Heart size stable and moderately enlarged. Other: Degenerative changes at the shoulders. The medial lung apices are obscured by the patient's chin. IMPRESSION: Interval improvement of aeration. Moderate left and small right pleural fluid collections identified. RADIA
== END 2019-10-08 23:59 | disposition home or self-care (01) ==
LOC: DI.WCP 09:53
PROVIDERS: ATTEND Family Medicine
DX: I50.9 Heart failure, unspecified (principal)
CPT/HCPCS: 71045